=== PATIENT | female | born 1995 | race Caucasian/White ===

== ENCOUNTER → 2022-03-12 09:45 | Outpatient (CLI) | payer OTHER, SELFPAY ==
--- NOTE | 2022-03-12 09:47 | DI.MRI.S_ITS ---
PROCEDURE: MR SHOULDER LT W CON INDICATIONS: Pain in left shoulder TECHNIQUE: After the administration of 12 mL of dilute intra-articular Gadolinium contrast, oblique coronal T1 and T2 spin echo with fat saturation, oblique sagittal T1 spin echo with and without fat saturation, oblique sagittal T2 fast spin echo with fat saturation, axial T1 spin echo with fat saturation through the shoulder. COMPARISON: None. FINDINGS: Image quality: Excellent. Rotator cuff: The supraspinatus, infraspinatus, and subscapularis tendons appear intact throughout. No rotator cuff muscle atrophy on sagittal images. Bones and bursae: No bone marrow contusions or fractures. No acromioclavicular joint degeneration. The acromion demonstrates conventional anatomy, without an os acromiale. Capsule and soft tissues: The labrum and glenohumeral ligaments appear intact. The long head of the biceps tendon demonstrates normal location and morphology. The rotator interval appears normal, without fibrosis. The coracohumeral ligament is of normal thickness. No intra-articular bodies. There is a normal variant sublabral foramen involving the superior labrum. IMPRESSION: 1. Normal MR arthrogram of the left shoulder. 2. Normal variant sublabral foramen involving the superior labrum. Dictated by: Steven Thomson M.D. on 03/12/2022 at 11:16 Approved by: Steven Thomson M.D. on 03/12/2022 at 11:22
--- NOTE | 2022-03-12 09:49 | DI.RAD.S_ITS ---
PROCEDURE: FL SHOULDER INJECTION MR/CT LT INDICATIONS: Pain in left shoulder COMPARISON: None. TECHNIQUE: The indications, alternatives, benefits, risks, and complications of the procedure were explained to the patient. Written informed consent was obtained and placed in the chart. The shoulder was examined fluoroscopically and a site for needle placement chosen for entry into the glenohumeral joint from an anterior approach. The skin was prepped and draped in a sterile fashion, and 1% lidocaine infiltrated from skin down to joint capsule. A spinal needle was inserted into the glenohumeral joint, and a small amount of iodinated contrast media injected to confirm intra-articular placement of the needle tip. This was followed by approximately 12 mL dilute solution of a gadolinium containing MR contrast agent. The needle was removed and a dressing was applied. The patient was given postprocedural instructions and sent to the MR suite for MR imaging. FINDINGS: A single fluoroscopic spot image demonstrates intra-articular location of injected iodinated contrast. IMPRESSION: Successful fluoroscopically guided administration of dilute Gadolinium solution into the shoulder joint for MR arthrogram. Dictated by: Steven Thomson M.D. on 03/12/2022 at 11:05 Approved by: Steven Thomson M.D. on 03/12/2022 at 11:05
== END ==
PROVIDERS: Family Provider Student in an Organized Health Care Education/Training Program; PCP Student in an Organized Health Care Education/Training Program; Referring Provider Student in an Organized Health Care Education/Training Program; Visit Provider Student in an Organized Health Care Education/Training Program
DX: M25.512 Pain in left shoulder (principal)
CPT/HCPCS: 23350; 73222

== ENCOUNTER 2022-10-08 08:15 | Outpatient (RCR) | payer OTHER, SELFPAY ==
--- NOTE | 2022-04-18 16:09 | PT.OIE ---
Current Diagnoses Pain in left shoulder (04/18/22) Pain in left knee (04/18/22) Visit Care Team Role Provider Type Nayan Milner DO Attending Provider Non-Staff Family Provider Primary Care Provider Referring Provider Specialty: Family Practice Address: [address] [place] [address], [id number] Email: Physical Therapy Initial Evaluation PT-OP-A Visit Information Start: 04/14/22 09:51 Freq: Status: Active Protocol: Document 04/18/22 07:31 AMB (Rec: 04/18/22 07:51 AMB [id number]) Out-Patient Physical Therapy Visit Information Visit Information Visit Type Initial Evaluation Visit Start Time 07:30 Visit Stop Time 08:15 Total Visit Minutes 45 Visit Number 1 PT-OP-B Current Condition Start: 04/14/22 09:51 Freq: Status: Active Protocol: Document 04/18/22 07:31 AMB (Rec: 04/18/22 07:51 AMB [id number]) Current Condition History of Current Condition Onset Date Jan 2020 for the shoulder; mid 2021 knee Current Complaints L shoulder and L knee History of Current Condition Talia reports that she was doing biceps curls and suddenly had a difficult time in January 2020. L shoulder continues to tire out extremely fast. Shoulder gets irritated if trying to get shoulder back. Getting dressed doesn't hurt it but can't really lift weights like she wants. Overhead lifts hurt. As far as the knee, doesn't really trust knee when she's been sitting for a while, especially crossing the leg the knee locks up. 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 Does have previous history of back pain. Prior Treatments and Tests MRI negative for shoulder, Xray of knee negative Treatment Goals Patient/Caregiver Goals Return to gym workouts Prior Functional Status Baseline Function- ADL's Independent Baseline Function- Mobility Independent Personal Factors Other Personal Factors That May Effect Lumbar pain history, active Therapy/Recovery duty PT-OP-C Subjective Start: 04/14/22 09:51 Freq: Status: Active Protocol: Document 04/18/22 07:30 AMB (Rec: 04/18/22 15:33 AMB [id number]) Patient Questionnaires Quick Dash- Upper Extremity Quick Dash UE Score 31 OP-PT Pain Assessment Comments Pain Comments 6/10 pain at anterior shoulder and at L knee PT-OP-J Posture/Palpation/Skin Start: 04/14/22 09:51 Freq: Status: Active Protocol: Document 04/18/22 07:30 AMB (Rec: 04/18/22 13:01 AMB [id number]) Posture Evaluation Comments Posture Comments medial bordern of scapula wings L>R Palpation Assessment Location One Palpation Details Shoulder quite tender to palpation at the long head of the biceps origin. Otherwise no tenderness noted PT-OP-K Range of Motion Start: 04/14/22 09:51 Freq: Status: Active Protocol: Document 04/18/22 07:30 AMB (Rec: 04/18/22 13:01 AMB [id number]) Shoulder Goniometric Range of Motion Shoulder Left Active Testing Position Sitting Flexion 156 Abduction 180 Internal Rotation Behind Back (text) L3 Knee Goniometric Range of Motion Knee ROM Limitations Comments WFL bilaterally, PT-OP-L Special Tests Start: 04/14/22 09:51 Freq: Status: Active Protocol: Document 04/18/22 07:30 AMB (Rec: 04/18/22 13:01 AMB [id number]) Special Tests Knee Special Tests Ever Test Test Results - PT-OP-M Strength Start: 04/14/22 09:51 Freq: Status: Active Protocol: Document 04/18/22 07:30 AMB (Rec: 04/18/22 13:01 AMB [id number]) Shoulder Strength Shoulder Manual Muscle Testing Right Flexion 5 Normal Extension 5 Normal Abduction (C5) 5 Normal External Rotation 5 Normal Internal Rotation 5 Normal Left Flexion 4+ Good+ Extension 5 Normal Abduction (C5) 4 Good External Rotation 4 Good Internal Rotation 4+ Good+ Hip Strength Hip Manual Muscle Testing Right Flexion (L2) 4+ Good+ Extension (S1) 5 Normal Abduction 5 Normal Left Flexion (L2) 4 Good Extension (S1) 4 Good Abduction 4 Good Knee Strength Knee Manual Muscle Testing Right Flexion (S2) 5 Normal Extension (L3) 5 Normal Left Flexion (S2) 4+ Good+ Extension (L3) 4+ Good+ PT-OP-Q Treatments Start: 04/14/22 09:51 Freq: Status: Active Protocol: Document 04/18/22 07:30 AMB (Rec: 04/18/22 16:06 AMB [id number]) Therapeutic Exercises Standing Exercises pec stretch Side left Reps/Minutes 30x2 Comments doorway PT-OP-T Assessment and Plan Start: 04/14/22 09:51 Freq: Status: Active Protocol: Document 04/18/22 07:30 AMB (Rec: 04/18/22 16:06 AMB [id number]) Physical Therapy Assessment Rehab Potential Rehabilitation Potential Good Evaluation Complexity Number of Personal Factors/Comorbidities 1-2 Number of Body Systems Impaired 3 Clinical Presentation at Evaluation Stable Impairments Impairments Pain,Posture,ROM,Strength Goals Three Impairment Return to sport Short Term Goal (STG) Belinda will lift 20# overhead with 2/10 shoulder pain or less. STG Duration 6 weeks Two Impairment Shoulder pain Short Term Goal (STG) Talia will show at least 165 degrees of active shoulder flexion without pain. 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 LTG Duration 12 weeks One Impairment Knee pain Short Term Goal (STG) Talia will move from sit to stand without knee pain. STG Duration 6 weeks Assistant Store Manager Trainee Goal (LTG) Talia will squat 40# without knee pain. LTG Duration 12 weeks Assessment Summary Assessment Talia attends physical therapy with L knee and shoulder pain. L knee pain is likely meniscal in nature, although ever's test was negative. More concerning is her history of shoulder pain which certainly is similar in nature to a bicipital tendonopathy. She does have a MRI history for her shoulder that was essentially negative per her report. She wants to be very active in the gym and both injuries, in addition to an old back injury limit her goals for her fitness. She does have limited flexion and internal rotation at the left shoulder and mild weakness globally at the left shoulder, hip and knee. She will benefit from physical therapy for appropriate inflammation management, stretching and strengthening program to support her in her return to fitness goals. Physical Therapy Plan Frequency and Duration Frequency of Treatment 2x/Week Duration of treatment (weeks) 12 Plan of Care Start Date 04/18/22 Plan of Care End Date 07/11/22 Therapeutic Interventions Therapeutic Interventions Home Exercise Program,Manual Therapy,Neuromuscular Re- education,Self-Care/Home Management,Therapeutic Activities,Therapeutic Exercises Modalities Cold Pack/Ice Massage,Electric Stimulation,Hot Packs, Iontophoresis,Ultrasound Other Therapeutic Interventions iontophoresis with dexamethasone Next Visit Focus/Plan Next Note Type Treatment Note Next Visit Plan Review pec stretch, IYT, consider ice massage kinesiotape
--- NOTE | 2022-04-18 16:10 | PT.OPPOC ---
Physical, Occupational & Speech Therapy At [facility] Current Diagnoses Pain in left shoulder (04/18/22) Pain in left knee (04/18/22) Visit Care Team Role Provider Type Nayan Milner DO Attending Provider Non-Staff Family Provider Primary Care Provider Referring Provider Specialty: Family Practice Address: [address] [place] [address], [id number] Email: Plan Of Care PT-OP-T Assessment and Plan Start: 04/14/22 09:51 Freq: Status: Active Protocol: Document 04/18/22 07:30 AMB (Rec: 04/18/22 16:06 AMB [id number]) Physical Therapy Assessment Rehab Potential Rehabilitation Potential Good Evaluation Complexity Number of Personal Factors/Comorbidities 1-2 Number of Body Systems Impaired 3 Clinical Presentation at Evaluation Stable Impairments Impairments Pain,Posture,ROM,Strength Goals Three Impairment Return to sport Short Term Goal (STG) Belinda will lift 20# overhead with 2/10 shoulder pain or less. STG Duration 6 weeks Two Impairment Shoulder pain Short Term Goal (STG) Talia will show at least 165 degrees of active shoulder flexion without pain. 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 LTG Duration 12 weeks One Impairment Knee pain Short Term Goal (STG) Talia will move from sit to stand without knee pain. STG Duration 6 weeks Maintenance Technician 2Nd Shift Goal (LTG) Talia will squat 40# without knee pain. LTG Duration 12 weeks Assessment Summary Assessment Talia attends physical therapy with L knee and shoulder pain. L knee pain is likely meniscal in nature, although shireen's test was negative. More concerning is her history of shoulder pain which certainly is similar in nature to a bicipital tendonopathy. She does have a MRI history for her shoulder that was essentially negative per her report. She wants to be very active in the gym and both injuries, in addition to an old back injury limit her goals for her fitness. She does have limited flexion and internal rotation at the left shoulder and mild weakness globally at the left shoulder, hip and knee. She will benefit from physical therapy for appropriate inflammation management, stretching and strengthening program to support her in her return to fitness goals. Physical Therapy Plan Frequency and Duration Frequency of Treatment 2x/Week Duration of treatment (weeks) 12 Plan of Care Start Date 04/18/22 Plan of Care End Date 07/11/22 Therapeutic Interventions Therapeutic Interventions Home Exercise Program,Manual Therapy,Neuromuscular Re- education,Self-Care/Home Management,Therapeutic Activities,Therapeutic Exercises Modalities Cold Pack/Ice Massage,Electric Stimulation,Hot Packs, Iontophoresis,Ultrasound Other Therapeutic Interventions iontophoresis with dexamethasone Next Visit Focus/Plan Next Note Type Treatment Note Next Visit Plan Review RORO tony, consider ice massage kinesiotape Plan of Care Dates Plan of Care Start Date 04/18/22 Plan of Care End Date 07/11/22 Electronically Signed by: Tameka Ortiz, PT 04/18/22 2559 If you are in agreement with this Plan of Care, please return a signed and dated copy. I have reviewed this Plan of Care and certify that the skilled therapy services above are required to meet the patient?s needs. Physician Signature Date Printed Name and Credentials Clinical Instructor Signature Printed Name and Credentials
--- NOTE | 2022-04-23 12:03 | PT.OTN ---
Current Diagnoses Pain in left shoulder (04/23/22) Pain in left knee (04/23/22) Physical Therapy Treatment Note PT-OP-A Visit Information Start: 04/14/22 09:51 Freq: Status: Active Protocol: Document 04/23/22 08:18 AMB (Rec: 04/23/22 09:07 AMB [id number]) Out-Patient Physical Therapy Visit Information Visit Information Visit Type Treatment Note Visit Start Time 08:15 Visit Stop Time 09:00 Total Visit Minutes 45 Visit Number 2 PT-OP-B Current Condition Start: 04/14/22 09:51 Freq: Status: Active Protocol: Document 04/18/22 07:31 AMB (Rec: 04/18/22 07:51 AMB [id number]) Current Condition History of Current Condition Onset Date Jan 2020 for the shoulder; mid 2021 knee Current Complaints L shoulder and L knee History of Current Condition Talia reports that she was doing biceps curls and suddenly had a difficult time in January 2020. L shoulder continues to tire out extremely fast. Shoulder gets irritated if trying to get shoulder back. Getting dressed doesn't hurt it but can't really lift weights like she wants. Overhead lifts hurt. As far as the knee, doesn't really trust knee when she's been sitting for a while, especially crossing the leg the knee locks up. 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 Does have previous history of back pain. Prior Treatments and Tests MRI negative for shoulder, Xray of knee negative Treatment Goals Patient/Caregiver Goals Return to gym workouts Prior Functional Status Baseline Function- ADL's Independent Baseline Function- Mobility Independent Personal Factors Other Personal Factors That May Effect Lumbar pain history, active Therapy/Recovery duty PT-OP-C Subjective Start: 04/14/22 09:51 Freq: Status: Active Protocol: Document 04/23/22 08:15 AMB (Rec: 04/23/22 11:53 AMB [id number]) OP-PT Subjective Patient Comments Patient Comments Pt was able to go dancing over the weekend and the knee did ok. Did go to the gym and worked LE PT-OP-J Posture/Palpation/Skin Start: 04/14/22 09:51 Freq: Status: Active Protocol: Document 04/18/22 07:30 AMB (Rec: 04/18/22 13:01 AMB [id number]) Posture Evaluation Comments Posture Comments medial bordern of scapula wings L>R Palpation Assessment Location One Palpation Details Shoulder quite tender to palpation at the long head of the biceps origin. Otherwise no tenderness noted PT-OP-K Range of Motion Start: 04/14/22 09:51 Freq: Status: Active Protocol: Document 04/18/22 07:30 AMB (Rec: 04/18/22 13:01 AMB [id number]) Shoulder Goniometric Range of Motion Shoulder Left Active Testing Position Sitting Flexion 156 Abduction 180 Internal Rotation Behind Back (text) L3 Knee Goniometric Range of Motion Knee ROM Limitations Comments WFL bilaterally, PT-OP-L Special Tests Start: 04/14/22 09:51 Freq: Status: Active Protocol: Document 04/18/22 07:30 AMB (Rec: 04/18/22 13:01 AMB [id number]) Special Tests Knee Special Tests Ever Test Test Results - PT-OP-M Strength Start: 04/14/22 09:51 Freq: Status: Active Protocol: Document 04/18/22 07:30 AMB (Rec: 04/18/22 13:01 AMB [id number]) Shoulder Strength Shoulder Manual Muscle Testing Right Flexion 5 Normal Extension 5 Normal Abduction (C5) 5 Normal External Rotation 5 Normal Internal Rotation 5 Normal Left Flexion 4+ Good+ Extension 5 Normal Abduction (C5) 4 Good External Rotation 4 Good Internal Rotation 4+ Good+ Hip Strength Hip Manual Muscle Testing Right Flexion (L2) 4+ Good+ Extension (S1) 5 Normal Abduction 5 Normal Left Flexion (L2) 4 Good Extension (S1) 4 Good Abduction 4 Good Knee Strength Knee Manual Muscle Testing Right Flexion (S2) 5 Normal Extension (L3) 5 Normal Left Flexion (S2) 4+ Good+ Extension (L3) 4+ Good+ PT-OP-Q Treatments Start: 04/14/22 09:51 Freq: Status: Active Protocol: Document 04/23/22 08:15 AMB (Rec: 04/23/22 11:53 AMB [id number]) Therapeutic Exercises Prone Exercises shldr horizontal abd Reps/Minutes 2x10 Comments partial ROM only shldr ext Reps/Minutes 2x10 Comments good tolerance Sitting Exercises pulleys Sitting Exercise Name flexion Reps/Minutes 10 reps Comments then increased pain Standing Exercises rows Standing Exercise Name t band #2 Reps/Minutes 2x10 pec stretch Side left Reps/Minutes 30x2 Comments doorway Manual Therapy Treatment Joint Mobilizations 1 Joint GH AP Grade III Taping kinesiotape Body Location L shoulder Type of Tape Kinesio Tape Comments I strip from mid biceps to long head attachment, then another I strip from ant. GH joint to scapula to promote scapular retraction PT-OP-R Modalities Start: 04/14/22 09:51 Freq: Status: Active Protocol: Document 04/23/22 08:15 AMB (Rec: 04/23/22 12:01 AMB [id number]) Hot Pack/Cold Pack Treatment Ice Massage Location L shoulder Patient Position Supine Treatment Duration (minutes) 5 PT-OP-T Assessment and Plan Start: 04/14/22 09:51 Freq: Status: Active Protocol: Document 04/23/22 08:18 AMB (Rec: 04/23/22 09:07 AMB [id number]) Physical Therapy Assessment Goals Three Impairment Return to sport Short Term Goal (STG) Belinda will lift 20# overhead with 2/10 shoulder pain or less. STG Duration 6 weeks Two Impairment Shoulder pain Short Term Goal (STG) Talia will show at least 165 degrees of active shoulder flexion without pain. 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 LTG Duration 12 weeks One Impairment Knee pain Short Term Goal (STG) Talia will move from sit to stand without knee pain. STG Duration 6 weeks Improvement Coordinator Goal (LTG) Talia will squat 40# without knee pain. LTG Duration 12 weeks Assessment Summary Assessment Pt was not able to tolerate pulleys very well. Tolerate rows after taping well. Progressed shoulder HEP, will need to work on knee as well, but shoulder is much more irritable at this point. Encouraged pt in ice massage and working on inflammation reduction.
--- NOTE | 2022-04-25 13:01 | PT.OTN ---
Current Diagnoses Pain in left shoulder (04/25/22) Pain in left knee (04/25/22) Physical Therapy Treatment Note PT-OP-A Visit Information Start: 04/14/22 09:51 Freq: Status: Active Protocol: Document 04/25/22 07:25 AMB (Rec: 04/25/22 08:21 AMB [id number]) Out-Patient Physical Therapy Visit Information Visit Information Visit Type Treatment Note Visit Start Time 07:30 Visit Stop Time 08:15 Total Visit Minutes 45 Visit Number 3 PT-OP-B Current Condition Start: 04/14/22 09:51 Freq: Status: Active Protocol: Document 04/18/22 07:31 AMB (Rec: 04/18/22 07:51 AMB [id number]) Current Condition History of Current Condition Onset Date Jan 2020 for the shoulder; mid 2021 knee Current Complaints L shoulder and L knee History of Current Condition Talia reports that she was doing biceps curls and suddenly had a difficult time in January 2020. L shoulder continues to tire out extremely fast. Shoulder gets irritated if trying to get shoulder back. Getting dressed doesn't hurt it but can't really lift weights like she wants. Overhead lifts hurt. As far as the knee, doesn't really trust knee when she's been sitting for a while, especially crossing the leg the knee locks up. 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 Does have previous history of back pain. Prior Treatments and Tests MRI negative for shoulder, Xray of knee negative Treatment Goals Patient/Caregiver Goals Return to gym workouts Prior Functional Status Baseline Function- ADL's Independent Baseline Function- Mobility Independent Personal Factors Other Personal Factors That May Effect Lumbar pain history, active Therapy/Recovery duty PT-OP-C Subjective Start: 04/14/22 09:51 Freq: Status: Active Protocol: Document 04/25/22 09:34 AMB (Rec: 04/25/22 09:46 AMB [id number]) OP-PT Subjective Patient Comments Patient Comments Pt felt tape was helpful PT-OP-J Posture/Palpation/Skin Start: 04/14/22 09:51 Freq: Status: Active Protocol: Document 04/18/22 07:30 AMB (Rec: 04/18/22 13:01 AMB [id number]) Posture Evaluation Comments Posture Comments medial bordern of scapula wings L>R Palpation Assessment Location One Palpation Details Shoulder quite tender to palpation at the long head of the biceps origin. Otherwise no tenderness noted PT-OP-K Range of Motion Start: 04/14/22 09:51 Freq: Status: Active Protocol: Document 04/18/22 07:30 AMB (Rec: 04/18/22 13:01 AMB [id number]) Shoulder Goniometric Range of Motion Shoulder Left Active Testing Position Sitting Flexion 156 Abduction 180 Internal Rotation Behind Back (text) L3 Knee Goniometric Range of Motion Knee ROM Limitations Comments WFL bilaterally, PT-OP-L Special Tests Start: 04/14/22 09:51 Freq: Status: Active Protocol: Document 04/18/22 07:30 AMB (Rec: 04/18/22 13:01 AMB [id number]) Special Tests Knee Special Tests Ever Test Test Results - PT-OP-M Strength Start: 04/14/22 09:51 Freq: Status: Active Protocol: Document 04/18/22 07:30 AMB (Rec: 04/18/22 13:01 AMB [id number]) Shoulder Strength Shoulder Manual Muscle Testing Right Flexion 5 Normal Extension 5 Normal Abduction (C5) 5 Normal External Rotation 5 Normal Internal Rotation 5 Normal Left Flexion 4+ Good+ Extension 5 Normal Abduction (C5) 4 Good External Rotation 4 Good Internal Rotation 4+ Good+ Hip Strength Hip Manual Muscle Testing Right Flexion (L2) 4+ Good+ Extension (S1) 5 Normal Abduction 5 Normal Left Flexion (L2) 4 Good Extension (S1) 4 Good Abduction 4 Good Knee Strength Knee Manual Muscle Testing Right Flexion (S2) 5 Normal Extension (L3) 5 Normal Left Flexion (S2) 4+ Good+ Extension (L3) 4+ Good+ PT-OP-Q Treatments Start: 04/14/22 09:51 Freq: Status: Active Protocol: Document 04/25/22 09:34 AMB (Rec: 04/25/22 09:46 AMB [id number]) Cardio Equipment Upper Body Ergometer (UBE) Duration (Minutes) 4 Other fwd back Therapeutic Exercises Standing Exercises sidestepping band Resistance red Reps/Minutes 2x10 banded lunge Resistance red Reps/Minutes 2x10 shoulder ER Resistance #2 t band Reps/Minutes 2x10 shoulder IR Resistance #2 t band Reps/Minutes 2x10 rows Standing Exercise Name t band #2 Reps/Minutes 2x10 pec stretch Side left Reps/Minutes 30x2 Comments doorway Manual Therapy Treatment Taping kinesiotape Body Location L shoulder Type of Tape Kinesio Tape Comments I strip from mid biceps to long head attachment, then another I strip from ant. GH joint to scapula to promote scapular retraction PT-OP-R Modalities Start: 04/14/22 09:51 Freq: Status: Active Protocol: Document 04/23/22 08:15 AMB (Rec: 04/23/22 12:01 AMB [id number]) Hot Pack/Cold Pack Treatment Ice Massage Location L shoulder Patient Position Supine Treatment Duration (minutes) 5 PT-OP-T Assessment and Plan Start: 04/14/22 09:51 Freq: Status: Active Protocol: Document 04/25/22 09:34 AMB (Rec: 04/25/22 09:46 AMB [id number]) Physical Therapy Assessment Goals Three Impairment Return to sport Short Term Goal (STG) Belinda will lift 20# overhead with 2/10 shoulder pain or less. STG Duration 6 weeks Two Impairment Shoulder pain Short Term Goal (STG) Talia will show at least 165 degrees of active shoulder flexion without pain. 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 LTG Duration 12 weeks One Impairment Knee pain Short Term Goal (STG) Talia will move from sit to stand without knee pain. STG Duration 6 weeks Geospatial Image Analyst Goal (LTG) Talia will squat 40# without knee pain. LTG Duration 12 weeks Assessment Summary Assessment Challenged by band exercises. Taping is helping. Wanting to try gym workout this weekend. Encouraged in body weight exercises for now and can add in resistance if that is going well. Physical Therapy Plan Frequency and Duration Frequency of Treatment 2x/Week Duration of treatment (weeks) 12 Plan of Care Start Date 04/18/22 Plan of Care End Date 07/11/22 Therapeutic Interventions Therapeutic Interventions Home Exercise Program,Manual Therapy,Neuromuscular Re- education,Self-Care/Home Management,Therapeutic Activities,Therapeutic Exercises Modalities Cold Pack/Ice Massage,Electric Stimulation,Hot Packs, Iontophoresis,Ultrasound Other Therapeutic Interventions iontophoresis with dexamethasone Next Visit Focus/Plan Next Note Type Treatment Note Next Visit Plan Review pec stretch, IYT, band exercises
--- NOTE | 2022-04-30 08:47 | PT.OTN ---
Current Diagnoses Pain in left shoulder (04/30/22) Pain in left knee (04/30/22) Physical Therapy Treatment Note PT-OP-A Visit Information Start: 04/14/22 09:51 Freq: Status: Active Protocol: Document 04/30/22 08:23 AMB (Rec: 04/30/22 08:47 AMB [id number]) Out-Patient Physical Therapy Visit Information Visit Information Visit Type Treatment Note Visit Start Time 07:30 Visit Stop Time 08:15 Total Visit Minutes 45 Visit Number 4 PT-OP-B Current Condition Start: 04/14/22 09:51 Freq: Status: Active Protocol: Document 04/18/22 07:31 AMB (Rec: 04/18/22 07:51 AMB [id number]) Current Condition History of Current Condition Onset Date Jan 2020 for the shoulder; mid 2021 knee Current Complaints L shoulder and L knee History of Current Condition Talia reports that she was doing biceps curls and suddenly had a difficult time in January 2020. L shoulder continues to tire out extremely fast. Shoulder gets irritated if trying to get shoulder back. Getting dressed doesn't hurt it but can't really lift weights like she wants. Overhead lifts hurt. As far as the knee, doesn't really trust knee when she's been sitting for a while, especially crossing the leg the knee locks up. 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 Does have previous history of back pain. Prior Treatments and Tests MRI negative for shoulder, Xray of knee negative Treatment Goals Patient/Caregiver Goals Return to gym workouts Prior Functional Status Baseline Function- ADL's Independent Baseline Function- Mobility Independent Personal Factors Other Personal Factors That May Effect Lumbar pain history, active Therapy/Recovery duty PT-OP-C Subjective Start: 04/14/22 09:51 Freq: Status: Active Protocol: Document 04/30/22 08:23 AMB (Rec: 04/30/22 08:47 AMB [id number]) OP-PT Subjective Patient Comments Patient Comments Tape was a bit itchy PT-OP-J Posture/Palpation/Skin Start: 04/14/22 09:51 Freq: Status: Active Protocol: Document 04/18/22 07:30 AMB (Rec: 04/18/22 13:01 AMB [id number]) Posture Evaluation Comments Posture Comments medial bordern of scapula wings L>R Palpation Assessment Location One Palpation Details Shoulder quite tender to palpation at the long head of the biceps origin. Otherwise no tenderness noted PT-OP-K Range of Motion Start: 04/14/22 09:51 Freq: Status: Active Protocol: Document 04/18/22 07:30 AMB (Rec: 04/18/22 13:01 AMB [id number]) Shoulder Goniometric Range of Motion Shoulder Left Active Testing Position Sitting Flexion 156 Abduction 180 Internal Rotation Behind Back (text) L3 Knee Goniometric Range of Motion Knee ROM Limitations Comments WFL bilaterally, PT-OP-L Special Tests Start: 04/14/22 09:51 Freq: Status: Active Protocol: Document 04/18/22 07:30 AMB (Rec: 04/18/22 13:01 AMB [id number]) Special Tests Knee Special Tests Ever Test Test Results - PT-OP-M Strength Start: 04/14/22 09:51 Freq: Status: Active Protocol: Document 04/18/22 07:30 AMB (Rec: 04/18/22 13:01 AMB [id number]) Shoulder Strength Shoulder Manual Muscle Testing Right Flexion 5 Normal Extension 5 Normal Abduction (C5) 5 Normal External Rotation 5 Normal Internal Rotation 5 Normal Left Flexion 4+ Good+ Extension 5 Normal Abduction (C5) 4 Good External Rotation 4 Good Internal Rotation 4+ Good+ Hip Strength Hip Manual Muscle Testing Right Flexion (L2) 4+ Good+ Extension (S1) 5 Normal Abduction 5 Normal Left Flexion (L2) 4 Good Extension (S1) 4 Good Abduction 4 Good Knee Strength Knee Manual Muscle Testing Right Flexion (S2) 5 Normal Extension (L3) 5 Normal Left Flexion (S2) 4+ Good+ Extension (L3) 4+ Good+ PT-OP-Q Treatments Start: 04/14/22 09:51 Freq: Status: Active Protocol: Document 04/30/22 08:23 AMB (Rec: 04/30/22 08:47 AMB [id number]) Therapeutic Exercises Supine Exercises AAROM flexion Reps/Minutes 10 Comments with dowel Prone Exercises shldr horizontal abd Reps/Minutes 2x10 Comments partial ROM only shldr ext Reps/Minutes 2x10 Comments good tolerance Standing Exercises wall walk lift off Reps/Minutes 10 banded lunge Resistance no band Reps/Minutes 2x10 rows Standing Exercise Name t band #2 Reps/Minutes 2x10 Manual Therapy Treatment Soft Tissue Mobilization patellar tendon Comments friction massage PT-OP-R Modalities Start: 04/14/22 09:51 Freq: Status: Active Protocol: Document 04/23/22 08:15 AMB (Rec: 04/23/22 12:01 AMB [id number]) Hot Pack/Cold Pack Treatment Ice Massage Location L shoulder Patient Position Supine Treatment Duration (minutes) 5 PT-OP-T Assessment and Plan Start: 04/14/22 09:51 Freq: Status: Active Protocol: Document 04/30/22 08:23 AMB (Rec: 04/30/22 08:47 AMB [id number]) Physical Therapy Assessment Goals Three Impairment Return to sport Short Term Goal (STG) Belinda will lift 20# overhead with 2/10 shoulder pain or less. STG Duration 6 weeks Two Impairment Shoulder pain Short Term Goal (STG) Talia will show at least 165 degrees of active shoulder flexion without pain. 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 LTG Duration 12 weeks One Impairment Knee pain Short Term Goal (STG) Talia will move from sit to stand without knee pain. STG Duration 6 weeks Snf Goal (LTG) Talia will squat 40# without knee pain. LTG Duration 12 weeks Assessment Summary Assessment Tenderness is more at patellar tendon today, especially with lunges. Improved flexion shoulder ROM 164 degrees today . Encouraged to avoid open chain machines like knee extension while patellar tendon is sore. Physical Therapy Plan Frequency and Duration Frequency of Treatment 2x/Week Duration of treatment (weeks) 12 Plan of Care Start Date 04/18/22 Plan of Care End Date 07/11/22 Therapeutic Interventions Therapeutic Interventions Home Exercise Program,Manual Therapy,Neuromuscular Re- education,Self-Care/Home Management,Therapeutic Activities,Therapeutic Exercises Modalities Cold Pack/Ice Massage,Electric Stimulation,Hot Packs, Iontophoresis,Ultrasound Other Therapeutic Interventions iontophoresis with dexamethasone Next Visit Focus/Plan Next Note Type Treatment Note Next Visit Plan Review pec stretch, IYT, band exercises, patellar tendon massage
--- NOTE | 2022-05-02 08:19 | PT.OTN ---
Current Diagnoses Pain in left shoulder (05/02/22) Pain in left knee (05/02/22) Physical Therapy Treatment Note PT-OP-A Visit Information Start: 04/14/22 09:51 Freq: Status: Active Protocol: Document 05/02/22 07:30 AMB (Rec: 05/02/22 08:18 AMB [id number]) Out-Patient Physical Therapy Visit Information Visit Information Visit Type Treatment Note Visit Start Time 07:30 Visit Stop Time 08:15 Total Visit Minutes 45 Visit Number 5 PT-OP-B Current Condition Start: 04/14/22 09:51 Freq: Status: Active Protocol: Document 04/18/22 07:31 AMB (Rec: 04/18/22 07:51 AMB [id number]) Current Condition History of Current Condition Onset Date Jan 2020 for the shoulder; mid 2021 knee Current Complaints L shoulder and L knee History of Current Condition Talia reports that she was doing biceps curls and suddenly had a difficult time in January 2020. L shoulder continues to tire out extremely fast. Shoulder gets irritated if trying to get shoulder back. Getting dressed doesn't hurt it but can't really lift weights like she wants. Overhead lifts hurt. As far as the knee, doesn't really trust knee when she's been sitting for a while, especially crossing the leg the knee locks up. 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 Does have previous history of back pain. Prior Treatments and Tests MRI negative for shoulder, Xray of knee negative Treatment Goals Patient/Caregiver Goals Return to gym workouts Prior Functional Status Baseline Function- ADL's Independent Baseline Function- Mobility Independent Personal Factors Other Personal Factors That May Effect Lumbar pain history, active Therapy/Recovery duty PT-OP-C Subjective Start: 04/14/22 09:51 Freq: Status: Active Protocol: Document 05/02/22 07:30 AMB (Rec: 05/02/22 08:18 AMB [id number]) OP-PT Subjective Patient Comments Patient Comments Pt is going to do a leg workout later today. Feeling shoulder a bit today. PT-OP-J Posture/Palpation/Skin Start: 04/14/22 09:51 Freq: Status: Active Protocol: Document 04/18/22 07:30 AMB (Rec: 04/18/22 13:01 AMB [id number]) Posture Evaluation Comments Posture Comments medial bordern of scapula wings L>R Palpation Assessment Location One Palpation Details Shoulder quite tender to palpation at the long head of the biceps origin. Otherwise no tenderness noted PT-OP-K Range of Motion Start: 04/14/22 09:51 Freq: Status: Active Protocol: Document 04/18/22 07:30 AMB (Rec: 04/18/22 13:01 AMB [id number]) Shoulder Goniometric Range of Motion Shoulder Left Active Testing Position Sitting Flexion 156 Abduction 180 Internal Rotation Behind Back (text) L3 Knee Goniometric Range of Motion Knee ROM Limitations Comments WFL bilaterally, PT-OP-L Special Tests Start: 04/14/22 09:51 Freq: Status: Active Protocol: Document 04/18/22 07:30 AMB (Rec: 04/18/22 13:01 AMB [id number]) Special Tests Knee Special Tests Ever Test Test Results - PT-OP-M Strength Start: 04/14/22 09:51 Freq: Status: Active Protocol: Document 04/18/22 07:30 AMB (Rec: 04/18/22 13:01 AMB [id number]) Shoulder Strength Shoulder Manual Muscle Testing Right Flexion 5 Normal Extension 5 Normal Abduction (C5) 5 Normal External Rotation 5 Normal Internal Rotation 5 Normal Left Flexion 4+ Good+ Extension 5 Normal Abduction (C5) 4 Good External Rotation 4 Good Internal Rotation 4+ Good+ Hip Strength Hip Manual Muscle Testing Right Flexion (L2) 4+ Good+ Extension (S1) 5 Normal Abduction 5 Normal Left Flexion (L2) 4 Good Extension (S1) 4 Good Abduction 4 Good Knee Strength Knee Manual Muscle Testing Right Flexion (S2) 5 Normal Extension (L3) 5 Normal Left Flexion (S2) 4+ Good+ Extension (L3) 4+ Good+ PT-OP-Q Treatments Start: 04/14/22 09:51 Freq: Status: Active Protocol: Document 05/02/22 07:30 AMB (Rec: 05/02/22 08:18 AMB [id number]) Therapeutic Exercises Supine Exercises foam roller Reps/Minutes 3 min Comments arms in abduction stretch Prone Exercises shldr flex Reps/Minutes 10 Comments no pain shldr ext Reps/Minutes 2x10 Comments good tolerance Standing Exercises wall walk lift off Reps/Minutes 10 Comments stretch Manual Therapy Treatment Taping kinesiotape Body Location L patella Type of Tape Kinesio Tape Comments I strip over patellar tendon PT-OP-R Modalities Start: 04/14/22 09:51 Freq: Status: Active Protocol: Document 04/23/22 08:15 AMB (Rec: 04/23/22 12:01 AMB [id number]) Hot Pack/Cold Pack Treatment Ice Massage Location L shoulder Patient Position Supine Treatment Duration (minutes) 5 PT-OP-T Assessment and Plan Start: 04/14/22 09:51 Freq: Status: Active Protocol: Document 05/02/22 07:30 AMB (Rec: 05/02/22 08:18 AMB [id number]) Physical Therapy Assessment Goals Three Impairment Return to sport Short Term Goal (STG) Belinda will lift 20# overhead with 2/10 shoulder pain or less. STG Duration 6 weeks Two Impairment Shoulder pain Short Term Goal (STG) Talia will show at least 165 degrees of active shoulder flexion without pain. 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 LTG Duration 12 weeks One Impairment Knee pain Short Term Goal (STG) Talia will move from sit to stand without knee pain. STG Duration 6 weeks Long-Term Goal (LTG) Talia will squat 40# without knee pain. LTG Duration 12 weeks Assessment Summary Assessment Talia tolerated more resistance to biceps today, did start with pec stretching which was helpful. Physical Therapy Plan Frequency and Duration Frequency of Treatment 2x/Week Duration of treatment (weeks) 12 Plan of Care Start Date 04/18/22 Plan of Care End Date 07/11/22 Therapeutic Interventions Therapeutic Interventions Home Exercise Program,Manual Therapy,Neuromuscular Re- education,Self-Care/Home Management,Therapeutic Activities,Therapeutic Exercises Modalities Cold Pack/Ice Massage,Electric Stimulation,Hot Packs, Iontophoresis,Ultrasound Other Therapeutic Interventions iontophoresis with dexamethasone Next Visit Focus/Plan Next Note Type Treatment Note Next Visit Plan Review pec stretch, IYT, band exercises, patellar tendon massage
--- NOTE | 2022-05-09 11:23 | PT.OTN ---
Current Diagnoses Pain in left shoulder (05/09/22) Pain in left knee (05/09/22) Physical Therapy Treatment Note PT-OP-A Visit Information Start: 04/14/22 09:51 Freq: Status: Active Protocol: Document 05/09/22 09:02 AMB (Rec: 05/09/22 10:15 AMB [id number]) Out-Patient Physical Therapy Visit Information Visit Information Visit Type Treatment Note Visit Start Time 09:00 Visit Stop Time 09:45 Total Visit Minutes 45 Visit Number 6 PT-OP-B Current Condition Start: 04/14/22 09:51 Freq: Status: Active Protocol: Document 04/18/22 07:31 AMB (Rec: 04/18/22 07:51 AMB [id number]) Current Condition History of Current Condition Onset Date Jan 2020 for the shoulder; mid 2021 knee Current Complaints L shoulder and L knee History of Current Condition Talia reports that she was doing biceps curls and suddenly had a difficult time in January 2020. L shoulder continues to tire out extremely fast. Shoulder gets irritated if trying to get shoulder back. Getting dressed doesn't hurt it but can't really lift weights like she wants. Overhead lifts hurt. As far as the knee, doesn't really trust knee when she's been sitting for a while, especially crossing the leg the knee locks up. 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 Does have previous history of back pain. Prior Treatments and Tests MRI negative for shoulder, Xray of knee negative Treatment Goals Patient/Caregiver Goals Return to gym workouts Prior Functional Status Baseline Function- ADL's Independent Baseline Function- Mobility Independent Personal Factors Other Personal Factors That May Effect Lumbar pain history, active Therapy/Recovery duty PT-OP-C Subjective Start: 04/14/22 09:51 Freq: Status: Active Protocol: Document 05/09/22 09:02 AMB (Rec: 05/09/22 10:15 AMB [id number]) OP-PT Subjective Patient Comments Patient Comments Pt did well with leg workout. PT-OP-J Posture/Palpation/Skin Start: 04/14/22 09:51 Freq: Status: Active Protocol: Document 04/18/22 07:30 AMB (Rec: 04/18/22 13:01 AMB [id number]) Posture Evaluation Comments Posture Comments medial bordern of scapula wings L>R Palpation Assessment Location One Palpation Details Shoulder quite tender to palpation at the long head of the biceps origin. Otherwise no tenderness noted PT-OP-K Range of Motion Start: 04/14/22 09:51 Freq: Status: Active Protocol: Document 04/18/22 07:30 AMB (Rec: 04/18/22 13:01 AMB [id number]) Shoulder Goniometric Range of Motion Shoulder Left Active Testing Position Sitting Flexion 156 Abduction 180 Internal Rotation Behind Back (text) L3 Knee Goniometric Range of Motion Knee ROM Limitations Comments WFL bilaterally, PT-OP-L Special Tests Start: 04/14/22 09:51 Freq: Status: Active Protocol: Document 04/18/22 07:30 AMB (Rec: 04/18/22 13:01 AMB [id number]) Special Tests Knee Special Tests Ever Test Test Results - PT-OP-M Strength Start: 04/14/22 09:51 Freq: Status: Active Protocol: Document 04/18/22 07:30 AMB (Rec: 04/18/22 13:01 AMB [id number]) Shoulder Strength Shoulder Manual Muscle Testing Right Flexion 5 Normal Extension 5 Normal Abduction (C5) 5 Normal External Rotation 5 Normal Internal Rotation 5 Normal Left Flexion 4+ Good+ Extension 5 Normal Abduction (C5) 4 Good External Rotation 4 Good Internal Rotation 4+ Good+ Hip Strength Hip Manual Muscle Testing Right Flexion (L2) 4+ Good+ Extension (S1) 5 Normal Abduction 5 Normal Left Flexion (L2) 4 Good Extension (S1) 4 Good Abduction 4 Good Knee Strength Knee Manual Muscle Testing Right Flexion (S2) 5 Normal Extension (L3) 5 Normal Left Flexion (S2) 4+ Good+ Extension (L3) 4+ Good+ PT-OP-Q Treatments Start: 04/14/22 09:51 Freq: Status: Active Protocol: Document 05/09/22 09:02 AMB (Rec: 05/09/22 10:15 AMB [id number]) Therapeutic Exercises Supine Exercises IT band stretch Supine Exercise Name demonstrated, can try/provide handout at next visit if tolerated foam roller Reps/Minutes 3 min Comments arms in abduction stretch Standing Exercises wall pushups Standing Exercise Name 10 Comments increased sx rows Standing Exercise Name 10# Reps/Minutes 15 Comments leaning over plinth-- increased sx pec stretch Side left Reps/Minutes 1 minx 3 Comments doorway Manual Therapy Treatment Soft Tissue Mobilization pec minor tendon Mobilization Type Cross-Friction Intensity/Depth Moderate Comments added in gentle long head biceps patellar tendon Body Location left Comments friction massage PT-OP-R Modalities Start: 04/14/22 09:51 Freq: Status: Active Protocol: Document 04/23/22 08:15 AMB (Rec: 04/23/22 12:01 AMB [id number]) Hot Pack/Cold Pack Treatment Ice Massage Location L shoulder Patient Position Supine Treatment Duration (minutes) 5 PT-OP-T Assessment and Plan Start: 04/14/22 09:51 Freq: Status: Active Protocol: Document 05/09/22 09:02 AMB (Rec: 05/09/22 10:15 AMB [id number]) Physical Therapy Assessment Goals Three Impairment Return to sport Short Term Goal (STG) Belinda will lift 20# overhead with 2/10 shoulder pain or less. STG Duration 6 weeks Two Impairment Shoulder pain Short Term Goal (STG) Talia will show at least 165 degrees of active shoulder flexion without pain. 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 LTG Duration 12 weeks One Impairment Knee pain Short Term Goal (STG) Talia will move from sit to stand without knee pain. STG Duration 6 weeks Assisted Goal (LTG) Talia will squat 40# without knee pain. LTG Duration 12 weeks Assessment Summary Assessment Talia continues to needs to strengthen posterior shoulder and stretch anterior. Discussed knee at greater length today. Encouraged in IT band stretching/rolling as more pain at lateral patellar tendon. Physical Therapy Plan Frequency and Duration Frequency of Treatment 2x/Week Duration of treatment (weeks) 12 Plan of Care Start Date 04/18/22 Plan of Care End Date 07/11/22 Therapeutic Interventions Therapeutic Interventions Home Exercise Program,Manual Therapy,Neuromuscular Re- education,Self-Care/Home Management,Therapeutic Activities,Therapeutic Exercises Modalities Cold Pack/Ice Massage,Electric Stimulation,Hot Packs, Iontophoresis,Ultrasound Other Therapeutic Interventions iontophoresis with dexamethasone Next Visit Focus/Plan Next Note Type Treatment Note Next Visit Plan Review pec stretch, IYT, band exercises, patellar and pec minor tendon massage. Try IT band stretch.
--- NOTE | 2022-05-16 08:44 | PT.OTN ---
Current Diagnoses Pain in left shoulder (05/16/22) Pain in left knee (05/16/22) Physical Therapy Treatment Note PT-OP-A Visit Information Start: 04/14/22 09:51 Freq: Status: Active Protocol: Document 05/16/22 07:37 AMB (Rec: 05/16/22 08:24 AMB [id number]) Out-Patient Physical Therapy Visit Information Visit Information Visit Type Treatment Note Visit Start Time 07:30 Visit Stop Time 08:15 Total Visit Minutes 45 Visit Number 7 PT-OP-B Current Condition Start: 04/14/22 09:51 Freq: Status: Active Protocol: Document 04/18/22 07:31 AMB (Rec: 04/18/22 07:51 AMB [id number]) Current Condition History of Current Condition Onset Date Jan 2020 for the shoulder; mid 2021 knee Current Complaints L shoulder and L knee History of Current Condition Talia reports that she was doing biceps curls and suddenly had a difficult time in January 2020. L shoulder continues to tire out extremely fast. Shoulder gets irritated if trying to get shoulder back. Getting dressed doesn't hurt it but can't really lift weights like she wants. Overhead lifts hurt. As far as the knee, doesn't really trust knee when she's been sitting for a while, especially crossing the leg the knee locks up. 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 Does have previous history of back pain. Prior Treatments and Tests MRI negative for shoulder, Xray of knee negative Treatment Goals Patient/Caregiver Goals Return to gym workouts Prior Functional Status Baseline Function- ADL's Independent Baseline Function- Mobility Independent Personal Factors Other Personal Factors That May Effect Lumbar pain history, active Therapy/Recovery duty PT-OP-C Subjective Start: 04/14/22 09:51 Freq: Status: Active Protocol: Document 05/16/22 07:37 AMB (Rec: 05/16/22 08:24 AMB [id number]) OP-PT Subjective Patient Comments Patient Comments Pt doing well with her knee. PT-OP-J Posture/Palpation/Skin Start: 04/14/22 09:51 Freq: Status: Active Protocol: Document 04/18/22 07:30 AMB (Rec: 04/18/22 13:01 AMB [id number]) Posture Evaluation Comments Posture Comments medial bordern of scapula wings L>R Palpation Assessment Location One Palpation Details Shoulder quite tender to palpation at the long head of the biceps origin. Otherwise no tenderness noted PT-OP-K Range of Motion Start: 04/14/22 09:51 Freq: Status: Active Protocol: Document 04/18/22 07:30 AMB (Rec: 04/18/22 13:01 AMB [id number]) Shoulder Goniometric Range of Motion Shoulder Left Active Testing Position Sitting Flexion 156 Abduction 180 Internal Rotation Behind Back (text) L3 Knee Goniometric Range of Motion Knee ROM Limitations Comments WFL bilaterally, PT-OP-L Special Tests Start: 04/14/22 09:51 Freq: Status: Active Protocol: Document 04/18/22 07:30 AMB (Rec: 04/18/22 13:01 AMB [id number]) Special Tests Knee Special Tests Ever Test Test Results - PT-OP-M Strength Start: 04/14/22 09:51 Freq: Status: Active Protocol: Document 04/18/22 07:30 AMB (Rec: 04/18/22 13:01 AMB [id number]) Shoulder Strength Shoulder Manual Muscle Testing Right Flexion 5 Normal Extension 5 Normal Abduction (C5) 5 Normal External Rotation 5 Normal Internal Rotation 5 Normal Left Flexion 4+ Good+ Extension 5 Normal Abduction (C5) 4 Good External Rotation 4 Good Internal Rotation 4+ Good+ Hip Strength Hip Manual Muscle Testing Right Flexion (L2) 4+ Good+ Extension (S1) 5 Normal Abduction 5 Normal Left Flexion (L2) 4 Good Extension (S1) 4 Good Abduction 4 Good Knee Strength Knee Manual Muscle Testing Right Flexion (S2) 5 Normal Extension (L3) 5 Normal Left Flexion (S2) 4+ Good+ Extension (L3) 4+ Good+ PT-OP-Q Treatments Start: 04/14/22 09:51 Freq: Status: Active Protocol: Document 05/16/22 07:37 AMB (Rec: 05/16/22 08:24 AMB [id number]) Therapeutic Exercises Standing Exercises wall pushups Standing Exercise Name 10 Comments no increase in sx today rows Standing Exercise Name 10# Reps/Minutes 15 Comments leaning over plinth-- increased sx pec stretch Side left Reps/Minutes 1 minx 3 Comments doorway Manual Therapy Treatment Soft Tissue Mobilization pec minor tendon Mobilization Type Cross-Friction Intensity/Depth Moderate Comments added in gentle long head biceps, lats, subscap, UT Joint Mobilizations 1 Joint GH AP Grade III PT-OP-R Modalities Start: 04/14/22 09:51 Freq: Status: Active Protocol: Document 04/23/22 08:15 AMB (Rec: 04/23/22 12:01 AMB [id number]) Hot Pack/Cold Pack Treatment Ice Massage Location L shoulder Patient Position Supine Treatment Duration (minutes) 5 PT-OP-T Assessment and Plan Start: 04/14/22 09:51 Freq: Status: Active Protocol: Document 05/16/22 07:37 AMB (Rec: 05/16/22 08:24 AMB [id number]) Physical Therapy Assessment Goals Three Impairment Return to sport Short Term Goal (STG) Belinda will lift 20# overhead with 2/10 shoulder pain or less. STG Duration 6 weeks Two Impairment Shoulder pain Short Term Goal (STG) Talia will show at least 165 degrees of active shoulder flexion without pain. 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 LTG Duration 12 weeks One Impairment Knee pain Short Term Goal (STG) Talia will move from sit to stand without knee pain. STG Duration 6 weeks Mcfp Goal (LTG) Talia will squat 40# without knee pain. LTG Duration 12 weeks Assessment Summary Assessment Talia had improved ROM after manual, continues to be very tender in biceps, pecs and lats. Encouraged pt to continue with I, Y, T and pec stretching and we can consider light resistance if still doing well next visit. Pt very motivated to return to gym workouts. Physical Therapy Plan Frequency and Duration Frequency of Treatment 2x/Week Duration of treatment (weeks) 12 Plan of Care Start Date 04/18/22 Plan of Care End Date 07/11/22 Therapeutic Interventions Therapeutic Interventions Home Exercise Program,Manual Therapy,Neuromuscular Re- education,Self-Care/Home Management,Therapeutic Activities,Therapeutic Exercises Modalities Cold Pack/Ice Massage,Electric Stimulation,Hot Packs, Iontophoresis,Ultrasound Other Therapeutic Interventions iontophoresis with dexamethasone Next Visit Focus/Plan Next Note Type Treatment Note Next Visit Plan Consider LIGHT shoulder resistance at next visit if continuing to feel better. Can progress manual if needed. Continue to encourage pec stretch, I, Y, T. Hip strengthening.
--- NOTE | 2022-05-18 10:00 | PT.OTN ---
Current Diagnoses Pain in left shoulder (05/18/22) Pain in left knee (05/18/22) Physical Therapy Treatment Note PT-OP-A Visit Information Start: 04/14/22 09:51 Freq: Status: Active Protocol: Document 05/18/22 09:13 NBM (Rec: 05/18/22 10:52 NBM [id number]) Out-Patient Physical Therapy Visit Information Visit Information Visit Type Treatment Note Visit Start Time 09:15 Visit Stop Time 09:55 Total Visit Minutes 40 Visit Number 8 Number of RESEARCH RECRUITER Visits 1 PT-OP-B Current Condition Start: 04/14/22 09:51 Freq: Status: Active Protocol: Document 04/18/22 07:31 AMB (Rec: 04/18/22 07:51 AMB [id number]) Current Condition History of Current Condition Onset Date Jan 2020 for the shoulder; mid 2021 knee Current Complaints L shoulder and L knee History of Current Condition Talia reports that she was doing biceps curls and suddenly had a difficult time in January 2020. L shoulder continues to tire out extremely fast. Shoulder gets irritated if trying to get shoulder back. Getting dressed doesn't hurt it but can't really lift weights like she wants. Overhead lifts hurt. As far as the knee, doesn't really trust knee when she's been sitting for a while, especially crossing the leg the knee locks up. 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 Does have previous history of back pain. Prior Treatments and Tests MRI negative for shoulder, Xray of knee negative Treatment Goals Patient/Caregiver Goals Return to gym workouts Prior Functional Status Baseline Function- ADL's Independent Baseline Function- Mobility Independent Personal Factors Other Personal Factors That May Effect Lumbar pain history, active Therapy/Recovery duty PT-OP-C Subjective Start: 04/14/22 09:51 Freq: Status: Active Protocol: Document 05/18/22 09:13 NBM (Rec: 05/18/22 10:52 NBM [id number]) OP-PT Subjective Patient Comments Patient Comments Pt states left shoulder is more problematic than the L knee. Knee was a bit sore yesterday but seems to be getting better as she gets stronger. Pt hasn't lifted with dumbbells since 6 mo ago due to shoulder pain (except to lift plate), but no sharp pains recently. PT-OP-J Posture/Palpation/Skin Start: 04/14/22 09:51 Freq: Status: Active Protocol: Document 04/18/22 07:30 AMB (Rec: 04/18/22 13:01 AMB [id number]) Posture Evaluation Comments Posture Comments medial bordern of scapula wings L>R Palpation Assessment Location One Palpation Details Shoulder quite tender to palpation at the long head of the biceps origin. Otherwise no tenderness noted PT-OP-K Range of Motion Start: 04/14/22 09:51 Freq: Status: Active Protocol: Document 04/18/22 07:30 AMB (Rec: 04/18/22 13:01 AMB [id number]) Shoulder Goniometric Range of Motion Shoulder Left Active Testing Position Sitting Flexion 156 Abduction 180 Internal Rotation Behind Back (text) L3 Knee Goniometric Range of Motion Knee ROM Limitations Comments WFL bilaterally, PT-OP-L Special Tests Start: 04/14/22 09:51 Freq: Status: Active Protocol: Document 04/18/22 07:30 AMB (Rec: 04/18/22 13:01 AMB [id number]) Special Tests Knee Special Tests Ever Test Test Results - PT-OP-M Strength Start: 04/14/22 09:51 Freq: Status: Active Protocol: Document 04/18/22 07:30 AMB (Rec: 04/18/22 13:01 AMB [id number]) Shoulder Strength Shoulder Manual Muscle Testing Right Flexion 5 Normal Extension 5 Normal Abduction (C5) 5 Normal External Rotation 5 Normal Internal Rotation 5 Normal Left Flexion 4+ Good+ Extension 5 Normal Abduction (C5) 4 Good External Rotation 4 Good Internal Rotation 4+ Good+ Hip Strength Hip Manual Muscle Testing Right Flexion (L2) 4+ Good+ Extension (S1) 5 Normal Abduction 5 Normal Left Flexion (L2) 4 Good Extension (S1) 4 Good Abduction 4 Good Knee Strength Knee Manual Muscle Testing Right Flexion (S2) 5 Normal Extension (L3) 5 Normal Left Flexion (S2) 4+ Good+ Extension (L3) 4+ Good+ PT-OP-Q Treatments Start: 04/14/22 09:51 Freq: Status: Active Protocol: Document 05/18/22 09:13 NBM (Rec: 05/18/22 10:52 NBM [id number]) Therapeutic Exercises Supine Exercises IT band stretch Supine Exercise Name added to HEP Side bilateral Equipment Used /c belt Reps/Minutes 2 x 30s ea Comments cues set up and for longer hold time foam roller Reps/Minutes 3 min Comments arms in abduction stretch Prone Exercises shldr flex Reps/Minutes 10, x10 1# monica Comments no pain but started to feel popping shldr horizontal abd Reps/Minutes x10, x10 1# monica Comments partial ROM only shldr ext Reps/Minutes x10, x10 1# monica Comments good tolerance Standing Exercises rows Standing Exercise Name 10# Reps/Minutes 15 Comments leaning over plinth-- increased sx Manual Therapy Treatment Soft Tissue Mobilization pec minor tendon Mobilization Type Cross-Friction Intensity/Depth Moderate Comments added in gentle long head biceps, lats, subscap, UT Added manual L LS stretch x30 sec. Joint Mobilizations 1 Joint GH AP Grade II Comments inferior - good feedback response Self-Care/Home Management Treatment Education Patient Education Home Exercise Program Other Education Added to HEP: supine ITB stretch w/ belt - HO given. Pt educated to hold ex at least 30s and not to count fast. PT-OP-R Modalities Start: 04/14/22 09:51 Freq: Status: Active Protocol: Document 04/23/22 08:15 AMB (Rec: 04/23/22 12:01 AMB [id number]) Hot Pack/Cold Pack Treatment Ice Massage Location L shoulder Patient Position Supine Treatment Duration (minutes) 5 PT-OP-T Assessment and Plan Start: 04/14/22 09:51 Freq: Status: Active Protocol: Document 05/18/22 09:13 NBM (Rec: 05/18/22 10:52 NBM [id number]) Physical Therapy Assessment Impairments Impairments Pain,Posture,ROM,Strength Goals Three Impairment Return to sport Short Term Goal (STG) Belinda will lift 20# overhead with 2/10 shoulder pain or less. STG Duration 6 weeks Two Impairment Shoulder pain Short Term Goal (STG) Talia will show at least 165 degrees of active shoulder flexion without pain. 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 LTG Duration 12 weeks One Impairment Knee pain Short Term Goal (STG) Talia will move from sit to stand without knee pain. STG Duration 6 weeks Oil Refiner Goal (LTG) Talia will squat 40# without knee pain. LTG Duration 12 weeks Assessment Summary Assessment Pt presents today with tenderness to palpation in L shoulder. Treatment focus today on improving scapular stability and pain-free range of motion and manual therapy. Pt requires cues with prone ex 's for scapular setting and chin tuck and is increasingly challenged w/ increasing shoulder flexion. Added to HEP : supine ITB stretch w/ belt - HO given. Pt educated to hold ex at least 30s and not to count fast. Soft tissue mobilization focus to long head of L biceps, Upper trapezius and Levator scapulae with decrease in palpable tension and positive feedback response from pt. Physical Therapy Plan Frequency and Duration Frequency of Treatment 2x/Week Duration of treatment (weeks) 12 Plan of Care Start Date 04/18/22 Plan of Care End Date 07/11/22 Therapeutic Interventions Therapeutic Interventions Home Exercise Program,Manual Therapy,Neuromuscular Re- education,Self-Care/Home Management,Therapeutic Activities,Therapeutic Exercises Modalities Cold Pack/Ice Massage,Electric Stimulation,Hot Packs, Iontophoresis,Ultrasound Other Therapeutic Interventions iontophoresis with dexamethasone Next Visit Focus/Plan Next Note Type Treatment Note Next Visit Plan Consider LIGHT shoulder resistance at next visit if continuing to feel better. Can progress manual if needed. Continue to encourage pec stretch, I, Y, T. Hip strengthening.
--- NOTE | 2022-05-21 12:14 | PT.OTN ---
Current Diagnoses Pain in left shoulder (05/21/22) Pain in left knee (05/21/22) Physical Therapy Treatment Note PT-OP-A Visit Information Start: 04/14/22 09:51 Freq: Status: Active Protocol: Document 05/21/22 11:22 NBM (Rec: 05/21/22 12:14 NB [id number]) Out-Patient Physical Therapy Visit Information Visit Information Visit Type Treatment Note Visit Start Time 11:22 Visit Stop Time 12:07 Total Visit Minutes 45 Visit Number 9 Number of HANDICAPPER HARNESS RACING Visits 2 PT-OP-B Current Condition Start: 04/14/22 09:51 Freq: Status: Active Protocol: Document 04/18/22 07:31 AMB (Rec: 04/18/22 07:51 AMB [id number]) Current Condition History of Current Condition Onset Date Jan 2020 for the shoulder; mid 2021 knee Current Complaints L shoulder and L knee History of Current Condition Talia reports that she was doing biceps curls and suddenly had a difficult time in January 2020. L shoulder continues to tire out extremely fast. Shoulder gets irritated if trying to get shoulder back. Getting dressed doesn't hurt it but can't really lift weights like she wants. Overhead lifts hurt. As far as the knee, doesn't really trust knee when she's been sitting for a while, especially crossing the leg the knee locks up. 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 Does have previous history of back pain. Prior Treatments and Tests MRI negative for shoulder, Xray of knee negative Treatment Goals Patient/Caregiver Goals Return to gym workouts Prior Functional Status Baseline Function- ADL's Independent Baseline Function- Mobility Independent Personal Factors Other Personal Factors That May Effect Lumbar pain history, active Therapy/Recovery duty PT-OP-C Subjective Start: 04/14/22 09:51 Freq: Status: Active Protocol: Document 05/21/22 11:22 NBM (Rec: 05/21/22 12:14 NB [id number]) OP-PT Subjective Patient Comments Patient Comments Pt states she was sore right after last visit for about a day, so she didn't do as much over the weekend. She manually popped her L shoulder and it feels much better now. The knee is good. She is noticing when she sits or drives with rounded shoulders and then corrects. PT-OP-J Posture/Palpation/Skin Start: 04/14/22 09:51 Freq: Status: Active Protocol: Document 04/18/22 07:30 AMB (Rec: 04/18/22 13:01 AMB [id number]) Posture Evaluation Comments Posture Comments medial bordern of scapula wings L>R Palpation Assessment Location One Palpation Details Shoulder quite tender to palpation at the long head of the biceps origin. Otherwise no tenderness noted PT-OP-K Range of Motion Start: 04/14/22 09:51 Freq: Status: Active Protocol: Document 04/18/22 07:30 AMB (Rec: 04/18/22 13:01 AMB [id number]) Shoulder Goniometric Range of Motion Shoulder Left Active Testing Position Sitting Flexion 156 Abduction 180 Internal Rotation Behind Back (text) L3 Knee Goniometric Range of Motion Knee ROM Limitations Comments WFL bilaterally, PT-OP-L Special Tests Start: 04/14/22 09:51 Freq: Status: Active Protocol: Document 04/18/22 07:30 AMB (Rec: 04/18/22 13:01 AMB [id number]) Special Tests Knee Special Tests Ever Test Test Results - PT-OP-M Strength Start: 04/14/22 09:51 Freq: Status: Active Protocol: Document 04/18/22 07:30 AMB (Rec: 04/18/22 13:01 AMB [id number]) Shoulder Strength Shoulder Manual Muscle Testing Right Flexion 5 Normal Extension 5 Normal Abduction (C5) 5 Normal External Rotation 5 Normal Internal Rotation 5 Normal Left Flexion 4+ Good+ Extension 5 Normal Abduction (C5) 4 Good External Rotation 4 Good Internal Rotation 4+ Good+ Hip Strength Hip Manual Muscle Testing Right Flexion (L2) 4+ Good+ Extension (S1) 5 Normal Abduction 5 Normal Left Flexion (L2) 4 Good Extension (S1) 4 Good Abduction 4 Good Knee Strength Knee Manual Muscle Testing Right Flexion (S2) 5 Normal Extension (L3) 5 Normal Left Flexion (S2) 4+ Good+ Extension (L3) 4+ Good+ PT-OP-Q Treatments Start: 04/14/22 09:51 Freq: Status: Active Protocol: Document 05/21/22 11:22 NBM (Rec: 05/21/22 12:14 NBM [id number]) Therapeutic Exercises Supine Exercises foam roller Reps/Minutes 3 min Comments arms in abduction stretch Standing Exercises shoulder ER Resistance #2 t band Equipment Used towel roll Reps/Minutes x10 Comments dc'd d/t pt complaint of L [place] pain shoulder IR Resistance #2 t band Reps/Minutes 2x10 Comments UT overactivation w/ fatigue, pt self-corrects rows Standing Exercise Name 1.resisted #2Tb 2. 10# leaning over plinth Reps/Minutes x10 pec stretch Standing Exercise Name varying angles Side left Reps/Minutes 1 minx 3 Comments doorway, monica>Left only Manual Therapy Treatment Soft Tissue Mobilization pec minor tendon Mobilization Type Cross-Friction Intensity/Depth Moderate Comments added in gentle long head biceps, UT Joint Mobilizations 1 Joint GH AP Grade II Comments inferior - good feedback response PT-OP-R Modalities Start: 04/14/22 09:51 Freq: Status: Active Protocol: Document 05/21/22 11:22 [facility] (Rec: 05/21/22 12:14 [facility] [id number]) Hot Pack/Cold Pack Treatment Ice Massage Location L shoulder Patient Position Supine Treatment Duration (minutes) 5 Patient Tolerance Good PT-OP-T Assessment and Plan Start: 04/14/22 09:51 Freq: Status: Active Protocol: Document 05/21/22 11:22 NB (Rec: 05/21/22 12:14 [facility] [id number]) Physical Therapy Assessment Goals Three Impairment Return to sport Short Term Goal (STG) Belinda will lift 20# overhead with 2/10 shoulder pain or less. STG Duration 6 weeks Two Impairment Shoulder pain Short Term Goal (STG) Talia will show at least 165 degrees of active shoulder flexion without pain. 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 LTG Duration 12 weeks One Impairment Knee pain Short Term Goal (STG) Talia will move from sit to stand without knee pain. STG Duration 6 weeks [facility] Goal (LTG) Talia will squat 40# without knee pain. LTG Duration 12 weeks Assessment Summary Assessment Talia demonstrates improving self-awareness of posture but requires cues for scapular setting prior to initiating UE ex's, then self-corrects for remaining set. Pt requires cues for chin tuck, breathholding and scapular setting. Pt tolerates resisted L shoulder IR #2 Tb and rows but resisted L shouler ER is discontinued per pt's complaint of L shoulder pain after six repetitions and pt's UT overactivation. Pt has good feedback response to inferior and posterior L glenohumeral joint mobilizations. Physical Therapy Plan Frequency and Duration Frequency of Treatment 2x/Week Duration of treatment (weeks) 12 Plan of Care Start Date 04/18/22 Plan of Care End Date 07/11/22 Therapeutic Interventions Therapeutic Interventions Home Exercise Program,Manual Therapy,Neuromuscular Re- education,Self-Care/Home Management,Therapeutic Activities,Therapeutic Exercises Modalities Cold Pack/Ice Massage,Electric Stimulation,Hot Packs, Iontophoresis,Ultrasound Other Therapeutic Interventions iontophoresis with dexamethasone Next Visit Focus/Plan Next Note Type Treatment Note Next Visit Plan neck/milton stretches, I, Y, T; Consider LIGHT shoulder resistance at next visit if continuing to feel better. Can progress manual if needed. Continue to encourage pec stretch, I, Y, T. Hip strengthening.
--- NOTE | 2022-06-08 16:18 | PT.OTN ---
Current Diagnoses Pain in left shoulder (06/08/22) Pain in left knee (06/08/22) Physical Therapy Treatment Note PT-OP-A Visit Information Start: 04/14/22 09:51 Freq: Status: Active Protocol: Document 06/08/22 08:15 AMB (Rec: 06/08/22 16:16 AMB [id number]) Out-Patient Physical Therapy Visit Information Visit Information Visit Type Treatment Note Visit Start Time 08:15 Visit Stop Time 09:00 Total Visit Minutes 45 Visit Number 10 PT-OP-B Current Condition Start: 04/14/22 09:51 Freq: Status: Active Protocol: Document 04/18/22 07:31 AMB (Rec: 04/18/22 07:51 AMB [id number]) Current Condition History of Current Condition Onset Date Jan 2020 for the shoulder; mid 2021 knee Current Complaints L shoulder and L knee History of Current Condition Talia reports that she was doing biceps curls and suddenly had a difficult time in January 2020. L shoulder continues to tire out extremely fast. Shoulder gets irritated if trying to get shoulder back. Getting dressed doesn't hurt it but can't really lift weights like she wants. Overhead lifts hurt. As far as the knee, doesn't really trust knee when she's been sitting for a while, especially crossing the leg the knee locks up. 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 Does have previous history of back pain. Prior Treatments and Tests MRI negative for shoulder, Xray of knee negative Treatment Goals Patient/Caregiver Goals Return to gym workouts Prior Functional Status Baseline Function- ADL's Independent Baseline Function- Mobility Independent Personal Factors Other Personal Factors That May Effect Lumbar pain history, active Therapy/Recovery duty PT-OP-C Subjective Start: 04/14/22 09:51 Freq: Status: Active Protocol: Document 06/08/22 08:15 AMB (Rec: 06/08/22 16:16 AMB [id number]) OP-PT Subjective Patient Comments Patient Comments Pt has been sick so hasn't been goign to the gym so the knee has been feeling fine. Has been taking muscle relaxers for jaw pain and that may be helping the [place] pain. PT-OP-J Posture/Palpation/Skin Start: 04/14/22 09:51 Freq: Status: Active Protocol: Document 04/18/22 07:30 AMB (Rec: 04/18/22 13:01 AMB [id number]) Posture Evaluation Comments Posture Comments medial bordern of scapula wings L>R Palpation Assessment Location One Palpation Details Shoulder quite tender to palpation at the long head of the biceps origin. Otherwise no tenderness noted PT-OP-K Range of Motion Start: 04/14/22 09:51 Freq: Status: Active Protocol: Document 04/18/22 07:30 AMB (Rec: 04/18/22 13:01 AMB [id number]) Shoulder Goniometric Range of Motion Shoulder Left Active Testing Position Sitting Flexion 156 Abduction 180 Internal Rotation Behind Back (text) L3 Knee Goniometric Range of Motion Knee ROM Limitations Comments WFL bilaterally, PT-OP-L Special Tests Start: 04/14/22 09:51 Freq: Status: Active Protocol: Document 04/18/22 07:30 AMB (Rec: 04/18/22 13:01 AMB [id number]) Special Tests Knee Special Tests [place] Test Test Results - PT-OP-M Strength Start: 04/14/22 09:51 Freq: Status: Active Protocol: Document 04/18/22 07:30 AMB (Rec: 04/18/22 13:01 AMB [id number]) Shoulder Strength Shoulder Manual Muscle Testing Right Flexion 5 Normal Extension 5 Normal Abduction (C5) 5 Normal External Rotation 5 Normal Internal Rotation 5 Normal Left Flexion 4+ Good+ Extension 5 Normal Abduction (C5) 4 Good External Rotation 4 Good Internal Rotation 4+ Good+ Hip Strength Hip Manual Muscle Testing Right Flexion (L2) 4+ Good+ Extension (S1) 5 Normal Abduction 5 Normal Left Flexion (L2) 4 Good Extension (S1) 4 Good Abduction 4 Good Knee Strength Knee Manual Muscle Testing Right Flexion (S2) 5 Normal Extension (L3) 5 Normal Left Flexion (S2) 4+ Good+ Extension (L3) 4+ Good+ PT-OP-Q Treatments Start: 04/14/22 09:51 Freq: Status: Active Protocol: Document 06/08/22 08:26 AMB (Rec: 06/08/22 09:03 AMB [id number]) Therapeutic Exercises Prone Exercises prone Y Prone Exercise Name pt did feel popping Reps/Minutes 10 Comments AROM shldr horizontal abd Reps/Minutes x10, x10 1# monica Comments partial ROM only shldr ext Reps/Minutes x10, x10 1# monica Comments good tolerance Standing Exercises shoulder IR Resistance #2 t band Reps/Minutes 2x10 Comments UT overactivation w/ fatigue, pt self-corrects rows Standing Exercise Name 1.resisted #2Tb 2. 10# leaning over plinth Reps/Minutes x10 pec stretch Standing Exercise Name varying angles Side left Reps/Minutes 1 minx 3 Comments doorway, monica>Left only Manual Therapy Treatment Soft Tissue Mobilization pec minor tendon Mobilization Type Cross-Friction Intensity/Depth Moderate Comments added in gentle long head biceps, UT PT-OP-R Modalities Start: 04/14/22 09:51 Freq: Status: Active Protocol: Document 06/08/22 08:15 AMB (Rec: 06/08/22 16:16 AMB [id number]) Hot Pack/Cold Pack Treatment Ice Massage Location L shoulder Patient Position Supine Treatment Duration (minutes) 5 Patient Tolerance Good PT-OP-T Assessment and Plan Start: 04/14/22 09:51 Freq: Status: Active Protocol: Document 06/08/22 08:15 AMB (Rec: 06/08/22 16:16 AMB [id number]) Physical Therapy Assessment Goals Three Impairment Return to sport Short Term Goal (STG) Belinda will lift 20# overhead with 2/10 shoulder pain or less. STG Duration 6 weeks Two Impairment Shoulder pain Short Term Goal (STG) Talia will show at least 165 degrees of active shoulder flexion without pain. 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 LTG Duration 12 weeks One Impairment Knee pain Short Term Goal (STG) Talia will move from sit to stand without knee pain. STG Duration 6 weeks Labeling Associate Goal (LTG) Talia will squat 40# without knee pain. LTG Duration 12 weeks Assessment Summary Assessment Talia is tolerating increased strengthening, but continues to be weak especially with biceps and supraspinatus. Encouraged in continued scapular and pec mobility exercises while adding in more strengthening. Physical Therapy Plan Frequency and Duration Frequency of Treatment 2x/Week Duration of treatment (weeks) 12 Plan of Care Start Date 04/18/22 Plan of Care End Date 07/11/22 Therapeutic Interventions Therapeutic Interventions Home Exercise Program,Manual Therapy,Neuromuscular Re- education,Self-Care/Home Management,Therapeutic Activities,Therapeutic Exercises Modalities Cold Pack/Ice Massage,Electric Stimulation,Hot Packs, Iontophoresis,Ultrasound Other Therapeutic Interventions iontophoresis with dexamethasone Next Visit Focus/Plan Next Note Type Treatment Note Next Visit Plan neck/milton stretches, I, Y, T Hip strengthening.
--- NOTE | 2022-06-12 08:55 | PT.OTN ---
Current Diagnoses Pain in left shoulder (06/12/22) Pain in left knee (06/12/22) Physical Therapy Treatment Note PT-OP-A Visit Information Start: 04/14/22 09:51 Freq: Status: Active Protocol: Document 06/12/22 07:29 AMB (Rec: 06/12/22 08:20 AMB [id number]) Out-Patient Physical Therapy Visit Information Visit Information Visit Type Treatment Note Visit Start Time 07:30 Visit Stop Time 08:15 Total Visit Minutes 45 Visit Number 11 PT-OP-B Current Condition Start: 04/14/22 09:51 Freq: Status: Active Protocol: Document 04/18/22 07:31 AMB (Rec: 04/18/22 07:51 AMB [id number]) Current Condition History of Current Condition Onset Date Jan 2020 for the shoulder; mid 2021 knee Current Complaints L shoulder and L knee History of Current Condition Talia reports that she was doing biceps curls and suddenly had a difficult time in January 2020. L shoulder continues to tire out extremely fast. Shoulder gets irritated if trying to get shoulder back. Getting dressed doesn't hurt it but can't really lift weights like she wants. Overhead lifts hurt. As far as the knee, doesn't really trust knee when she's been sitting for a while, especially crossing the leg the knee locks up. 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 Does have previous history of back pain. Prior Treatments and Tests MRI negative for shoulder, Xray of knee negative Treatment Goals Patient/Caregiver Goals Return to gym workouts Prior Functional Status Baseline Function- ADL's Independent Baseline Function- Mobility Independent Personal Factors Other Personal Factors That May Effect Lumbar pain history, active Therapy/Recovery duty PT-OP-C Subjective Start: 04/14/22 09:51 Freq: Status: Active Protocol: Document 06/12/22 07:29 AMB (Rec: 06/12/22 08:20 AMB [id number]) OP-PT Subjective Patient Comments Patient Comments Pt continues to be sick, pt continues to be tight in UT and under shoulder blade. PT-OP-J Posture/Palpation/Skin Start: 04/14/22 09:51 Freq: Status: Active Protocol: Document 04/18/22 07:30 AMB (Rec: 04/18/22 13:01 AMB [id number]) Posture Evaluation Comments Posture Comments medial bordern of scapula wings L>R Palpation Assessment Location One Palpation Details Shoulder quite tender to palpation at the long head of the biceps origin. Otherwise no tenderness noted PT-OP-K Range of Motion Start: 04/14/22 09:51 Freq: Status: Active Protocol: Document 04/18/22 07:30 AMB (Rec: 04/18/22 13:01 AMB [id number]) Shoulder Goniometric Range of Motion Shoulder Left Active Testing Position Sitting Flexion 156 Abduction 180 Internal Rotation Behind Back (text) L3 Knee Goniometric Range of Motion Knee ROM Limitations Comments WFL bilaterally, PT-OP-L Special Tests Start: 04/14/22 09:51 Freq: Status: Active Protocol: Document 04/18/22 07:30 AMB (Rec: 04/18/22 13:01 AMB [id number]) Special Tests Knee Special Tests Ever Test Test Results - PT-OP-M Strength Start: 04/14/22 09:51 Freq: Status: Active Protocol: Document 04/18/22 07:30 AMB (Rec: 04/18/22 13:01 AMB [id number]) Shoulder Strength Shoulder Manual Muscle Testing Right Flexion 5 Normal Extension 5 Normal Abduction (C5) 5 Normal External Rotation 5 Normal Internal Rotation 5 Normal Left Flexion 4+ Good+ Extension 5 Normal Abduction (C5) 4 Good External Rotation 4 Good Internal Rotation 4+ Good+ Hip Strength Hip Manual Muscle Testing Right Flexion (L2) 4+ Good+ Extension (S1) 5 Normal Abduction 5 Normal Left Flexion (L2) 4 Good Extension (S1) 4 Good Abduction 4 Good Knee Strength Knee Manual Muscle Testing Right Flexion (S2) 5 Normal Extension (L3) 5 Normal Left Flexion (S2) 4+ Good+ Extension (L3) 4+ Good+ PT-OP-Q Treatments Start: 04/14/22 09:51 Freq: Status: Active Protocol: Document 06/12/22 07:29 AMB (Rec: 06/12/22 08:20 AMB [id number]) Therapeutic Exercises Sidelying Exercises open book Side left Reps/Minutes 10 Standing Exercises rows Standing Exercise Name 1.resisted #2Tb 2. 10# leaning over plinth Reps/Minutes x10 pec stretch Standing Exercise Name varying angles Side left Reps/Minutes 1 minx 3 Comments doorway, monica>Left only Manual Therapy Treatment Soft Tissue Mobilization pec minor tendon Mobilization Type Cross-Friction Intensity/Depth Moderate Comments added in gentle long head biceps, UT PT-OP-R Modalities Start: 04/14/22 09:51 Freq: Status: Active Protocol: Document 06/08/22 08:15 AMB (Rec: 06/08/22 16:16 AMB [id number]) Hot Pack/Cold Pack Treatment Ice Massage Location L shoulder Patient Position Supine Treatment Duration (minutes) 5 Patient Tolerance Good PT-OP-T Assessment and Plan Start: 04/14/22 09:51 Freq: Status: Active Protocol: Document 06/12/22 08:49 AMB (Rec: 06/12/22 08:55 AMB [id number]) Physical Therapy Assessment Goals Three Impairment Return to sport Short Term Goal (STG) Belinda will lift 20# overhead with 2/10 shoulder pain or less. STG Duration 6 weeks Two Impairment Shoulder pain Short Term Goal (STG) Talia will show at least 165 degrees of active shoulder flexion without pain. 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 LTG Duration 12 weeks One Impairment Knee pain Short Term Goal (STG) Talia will move from sit to stand without knee pain. STG Duration 6 weeks Medical Clerk Goal (LTG) Talia will squat 40# without knee pain. LTG Duration 12 weeks Assessment Summary Assessment Talia is having a more painful week with having a cold. Tightness throughout pec and rhomboids. Physical Therapy Plan Frequency and Duration Frequency of Treatment 2x/Week Duration of treatment (weeks) 12 Plan of Care Start Date 04/18/22 Plan of Care End Date 07/11/22 Therapeutic Interventions Therapeutic Interventions Home Exercise Program,Manual Therapy,Neuromuscular Re- education,Self-Care/Home Management,Therapeutic Activities,Therapeutic Exercises Modalities Cold Pack/Ice Massage,Electric Stimulation,Hot Packs, Iontophoresis,Ultrasound Other Therapeutic Interventions iontophoresis with dexamethasone Next Visit Focus/Plan Next Note Type Treatment Note Next Visit Plan neck/milton stretches, I, Y, T Hip strengthening.
--- NOTE | 2022-06-19 16:20 | PT.OTN ---
Current Diagnoses Pain in left shoulder (06/19/22) Pain in left knee (06/19/22) Physical Therapy Treatment Note PT-OP-A Visit Information Start: 04/14/22 09:51 Freq: Status: Active Protocol: Document 06/19/22 07:33 AMB (Rec: 06/19/22 08:16 AMB [id number]) Out-Patient Physical Therapy Visit Information Visit Information Visit Type Treatment Note Visit Start Time 07:30 Visit Stop Time 08:15 Total Visit Minutes 45 Visit Number 12 PT-OP-B Current Condition Start: 04/14/22 09:51 Freq: Status: Active Protocol: Document 04/18/22 07:31 AMB (Rec: 04/18/22 07:51 AMB [id number]) Current Condition History of Current Condition Onset Date Jan 2020 for the shoulder; mid 2021 knee Current Complaints L shoulder and L knee History of Current Condition Talia reports that she was doing biceps curls and suddenly had a difficult time in January 2020. L shoulder continues to tire out extremely fast. Shoulder gets irritated if trying to get shoulder back. Getting dressed doesn't hurt it but can't really lift weights like she wants. Overhead lifts hurt. As far as the knee, doesn't really trust knee when she's been sitting for a while, especially crossing the leg the knee locks up. 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 Does have previous history of back pain. Prior Treatments and Tests MRI negative for shoulder, Xray of knee negative Treatment Goals Patient/Caregiver Goals Return to gym workouts Prior Functional Status Baseline Function- ADL's Independent Baseline Function- Mobility Independent Personal Factors Other Personal Factors That May Effect Lumbar pain history, active Therapy/Recovery duty PT-OP-C Subjective Start: 04/14/22 09:51 Freq: Status: Active Protocol: Document 06/12/22 07:29 AMB (Rec: 06/12/22 08:20 AMB [id number]) OP-PT Subjective Patient Comments Patient Comments Pt continues to be sick, pt continues to be tight in UT and under shoulder blade. PT-OP-J Posture/Palpation/Skin Start: 04/14/22 09:51 Freq: Status: Active Protocol: Document 04/18/22 07:30 AMB (Rec: 04/18/22 13:01 AMB [id number]) Posture Evaluation Comments Posture Comments medial bordern of scapula wings L>R Palpation Assessment Location One Palpation Details Shoulder quite tender to palpation at the long head of the biceps origin. Otherwise no tenderness noted PT-OP-K Range of Motion Start: 04/14/22 09:51 Freq: Status: Active Protocol: Document 04/18/22 07:30 AMB (Rec: 04/18/22 13:01 AMB [id number]) Shoulder Goniometric Range of Motion Shoulder Left Active Testing Position Sitting Flexion 156 Abduction 180 Internal Rotation Behind Back (text) L3 Knee Goniometric Range of Motion Knee ROM Limitations Comments WFL bilaterally, PT-OP-L Special Tests Start: 04/14/22 09:51 Freq: Status: Active Protocol: Document 04/18/22 07:30 AMB (Rec: 04/18/22 13:01 AMB [id number]) Special Tests Knee Special Tests Ever Test Test Results - PT-OP-M Strength Start: 04/14/22 09:51 Freq: Status: Active Protocol: Document 04/18/22 07:30 AMB (Rec: 04/18/22 13:01 AMB [id number]) Shoulder Strength Shoulder Manual Muscle Testing Right Flexion 5 Normal Extension 5 Normal Abduction (C5) 5 Normal External Rotation 5 Normal Internal Rotation 5 Normal Left Flexion 4+ Good+ Extension 5 Normal Abduction (C5) 4 Good External Rotation 4 Good Internal Rotation 4+ Good+ Hip Strength Hip Manual Muscle Testing Right Flexion (L2) 4+ Good+ Extension (S1) 5 Normal Abduction 5 Normal Left Flexion (L2) 4 Good Extension (S1) 4 Good Abduction 4 Good Knee Strength Knee Manual Muscle Testing Right Flexion (S2) 5 Normal Extension (L3) 5 Normal Left Flexion (S2) 4+ Good+ Extension (L3) 4+ Good+ PT-OP-Q Treatments Start: 04/14/22 09:51 Freq: Status: Active Protocol: Document 06/19/22 07:33 AMB (Rec: 06/19/22 08:16 AMB [id number]) Gym Equipment Cable Column (Body Solid) Lat Pull Down Details 20# Reps/Time 2x10 Therapeutic Exercises Standing Exercises wall pushups Standing Exercise Name 10 Comments no increase in sx today shoulder ER Resistance #2 t band Equipment Used towel roll Reps/Minutes x10 shoulder IR Resistance #2 t band Reps/Minutes 2x10 Comments UT overactivation w/ fatigue, pt self-corrects rows Standing Exercise Name 1.resisted #2Tb 2. 10# leaning over plinth Reps/Minutes 2x10 pec stretch Standing Exercise Name varying angles Side left Reps/Minutes 1 minx 3 Comments doorway, monica>Left only Manual Therapy Treatment Soft Tissue Mobilization pec minor tendon Mobilization Type Cross-Friction Intensity/Depth Moderate Comments added in gentle long head biceps, UT PT-OP-R Modalities Start: 04/14/22 09:51 Freq: Status: Active Protocol: Document 06/08/22 08:15 AMB (Rec: 06/08/22 16:16 AMB [id number]) Hot Pack/Cold Pack Treatment Ice Massage Location L shoulder Patient Position Supine Treatment Duration (minutes) 5 Patient Tolerance Good PT-OP-T Assessment and Plan Start: 04/14/22 09:51 Freq: Status: Active Protocol: Document 06/19/22 07:33 AMB (Rec: 06/19/22 08:16 AMB [id number]) Physical Therapy Assessment Goals Three Impairment Return to sport Short Term Goal (STG) Belinda will lift 20# overhead with 2/10 shoulder pain or less. STG Duration 6 weeks Two Impairment Shoulder pain Short Term Goal (STG) Talia will show at least 165 degrees of active shoulder flexion without pain. STG Duration 6 weeks Department Editor Goal (LTG) Talia will have 0/10 shoulder pain with twisting activities at work as a power equipment mechanics instructor. LTG Duration 12 weeks One Impairment Knee pain Short Term Goal (STG) Talia will move from sit to stand without knee pain. STG Duration 6 weeks Department Editor Goal (LTG) Talia will squat 40# without knee pain. LTG Duration 12 weeks Assessment Summary Assessment Talia wants to get back to lifting weights, did well with lat pull down today. Try I,Y ,T with weights at next visit. Physical Therapy Plan Frequency and Duration Frequency of Treatment 2x/Week Duration of treatment (weeks) 12 Plan of Care Start Date 04/18/22 Plan of Care End Date 07/11/22 Therapeutic Interventions Therapeutic Interventions Home Exercise Program,Manual Therapy,Neuromuscular Re- education,Self-Care/Home Management,Therapeutic Activities,Therapeutic Exercises Modalities Cold Pack/Ice Massage,Electric Stimulation,Hot Packs, Iontophoresis,Ultrasound Other Therapeutic Interventions iontophoresis with dexamethasone
--- NOTE | 2022-06-22 18:51 | PT.OTN ---
Current Diagnoses Pain in left shoulder (06/22/22) Pain in left knee (06/22/22) Physical Therapy Treatment Note PT-OP-A Visit Information Start: 04/14/22 09:51 Freq: Status: Active Protocol: Document 06/22/22 07:37 AMB (Rec: 06/22/22 08:17 AMB [id number]) Out-Patient Physical Therapy Visit Information Visit Information Visit Type Treatment Note Visit Start Time 07:30 Visit Stop Time 08:15 Total Visit Minutes 45 Visit Number 13 PT-OP-B Current Condition Start: 04/14/22 09:51 Freq: Status: Active Protocol: Document 04/18/22 07:31 AMB (Rec: 04/18/22 07:51 AMB [id number]) Current Condition History of Current Condition Onset Date Jan 2020 for the shoulder; mid 2021 knee Current Complaints L shoulder and L knee History of Current Condition Talia reports that she was doing biceps curls and suddenly had a difficult time in January 2020. L shoulder continues to tire out extremely fast. Shoulder gets irritated if trying to get shoulder back. Getting dressed doesn't hurt it but can't really lift weights like she wants. Overhead lifts hurt. As far as the knee, doesn't really trust knee when she's been sitting for a while, especially crossing the leg the knee locks up. 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 Does have previous history of back pain. Prior Treatments and Tests MRI negative for shoulder, Xray of knee negative Treatment Goals Patient/Caregiver Goals Return to gym workouts Prior Functional Status Baseline Function- ADL's Independent Baseline Function- Mobility Independent Personal Factors Other Personal Factors That May Effect Lumbar pain history, active Therapy/Recovery duty PT-OP-C Subjective Start: 04/14/22 09:51 Freq: Status: Active Protocol: Document 06/22/22 07:37 AMB (Rec: 06/22/22 08:17 AMB [id number]) OP-PT Subjective Patient Comments Patient Comments Pt worked legs yesterday and is sore but her knee is feeling ok. PT-OP-J Posture/Palpation/Skin Start: 04/14/22 09:51 Freq: Status: Active Protocol: Document 04/18/22 07:30 AMB (Rec: 04/18/22 13:01 AMB [id number]) Posture Evaluation Comments Posture Comments medial bordern of scapula wings L>R Palpation Assessment Location One Palpation Details Shoulder quite tender to palpation at the long head of the biceps origin. Otherwise no tenderness noted PT-OP-K Range of Motion Start: 04/14/22 09:51 Freq: Status: Active Protocol: Document 04/18/22 07:30 AMB (Rec: 04/18/22 13:01 AMB [id number]) Shoulder Goniometric Range of Motion Shoulder Left Active Testing Position Sitting Flexion 156 Abduction 180 Internal Rotation Behind Back (text) L3 Knee Goniometric Range of Motion Knee ROM Limitations Comments WFL bilaterally, PT-OP-L Special Tests Start: 04/14/22 09:51 Freq: Status: Active Protocol: Document 04/18/22 07:30 AMB (Rec: 04/18/22 13:01 AMB [id number]) Special Tests Knee Special Tests Ever Test Test Results - PT-OP-M Strength Start: 04/14/22 09:51 Freq: Status: Active Protocol: Document 04/18/22 07:30 AMB (Rec: 04/18/22 13:01 AMB [id number]) Shoulder Strength Shoulder Manual Muscle Testing Right Flexion 5 Normal Extension 5 Normal Abduction (C5) 5 Normal External Rotation 5 Normal Internal Rotation 5 Normal Left Flexion 4+ Good+ Extension 5 Normal Abduction (C5) 4 Good External Rotation 4 Good Internal Rotation 4+ Good+ Hip Strength Hip Manual Muscle Testing Right Flexion (L2) 4+ Good+ Extension (S1) 5 Normal Abduction 5 Normal Left Flexion (L2) 4 Good Extension (S1) 4 Good Abduction 4 Good Knee Strength Knee Manual Muscle Testing Right Flexion (S2) 5 Normal Extension (L3) 5 Normal Left Flexion (S2) 4+ Good+ Extension (L3) 4+ Good+ PT-OP-Q Treatments Start: 04/14/22 09:51 Freq: Status: Active Protocol: Document 06/22/22 07:30 AMB (Rec: 06/22/22 08:17 AMB [id number]) Gym Equipment Cable Column (Body Solid) Rows Resistance 20 Reps/Time 1x12 Lat Pull Down Details 20# Reps/Time 2x10 Therapeutic Exercises Prone Exercises prone Y Side bilateral Resistance #1 Reps/Minutes 10 Comments AROM shldr horizontal abd Side bilateral Reps/Minutes x10, x10 1# monica Comments partial ROM only shldr ext Side bilateral Reps/Minutes x10, x10 1# monica Comments good tolerance Standing Exercises pec stretch Standing Exercise Name varying angles Side left Reps/Minutes 1 minx 3 Comments doorway, monica>Left only Manual Therapy Treatment Soft Tissue Mobilization biceps Mobilization Type Myofascial Release,Sustained Pressure Intensity/Depth Superficial Body Position Hooklying PT-OP-R Modalities Start: 04/14/22 09:51 Freq: Status: Active Protocol: Document 06/08/22 08:15 AMB (Rec: 06/08/22 16:16 AMB [id number]) Hot Pack/Cold Pack Treatment Ice Massage Location L shoulder Patient Position Supine Treatment Duration (minutes) 5 Patient Tolerance Good PT-OP-T Assessment and Plan Start: 04/14/22 09:51 Freq: Status: Active Protocol: Document 06/22/22 07:30 AMB (Rec: 06/22/22 08:17 AMB [id number]) Physical Therapy Assessment Goals Three Impairment Return to sport Short Term Goal (STG) Belinda will lift 20# overhead with 2/10 shoulder pain or less. STG Duration 6 weeks Two Impairment Shoulder pain Short Term Goal (STG) Talia will show at least 165 degrees of active shoulder flexion without pain. 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 LTG Duration 12 weeks One Impairment Knee pain Short Term Goal (STG) Talia will move from sit to stand without knee pain. STG Duration MET Prison Goal (LTG) Talia will squat 40# without knee pain. LTG Duration MET Assessment Summary Assessment Talia has recovered from her cold and has returned to gym work now. Overall her knee is improving, and her scapular pain is improving, but pain at biceps continues to be problematic, we are working on return to gym lifting and for example lat pull down is fine but rows which are a bit more biceps heavy are more of a struggle. Physical Therapy Plan Frequency and Duration Frequency of Treatment 2x/Week Duration of treatment (weeks) 12 Plan of Care Start Date 04/18/22 Plan of Care End Date 07/11/22
--- NOTE | 2022-06-25 17:23 | PT.OTN ---
Current Diagnoses Pain in left shoulder (06/25/22) Pain in left knee (06/25/22) Physical Therapy Treatment Note PT-OP-A Visit Information Start: 04/14/22 09:51 Freq: Status: Active Protocol: Document 06/25/22 12:33 NBM (Rec: 06/25/22 13:54 NBM [id number]) Out-Patient Physical Therapy Visit Information Visit Information Visit Type Treatment Note Visit Start Time 13:03 Visit Stop Time 13:45 Total Visit Minutes 42 Visit Number 14 Number of [employer]ER Visits 1 PT-OP-B Current Condition Start: 04/14/22 09:51 Freq: Status: Active Protocol: Document 04/18/22 07:31 AMB (Rec: 04/18/22 07:51 AMB [id number]) Current Condition History of Current Condition Onset Date Jan 2020 for the shoulder; mid 2021 knee Current Complaints L shoulder and L knee History of Current Condition Talia reports that she was doing biceps curls and suddenly had a difficult time in January 2020. L shoulder continues to tire out extremely fast. Shoulder gets irritated if trying to get shoulder back. Getting dressed doesn't hurt it but can't really lift weights like she wants. Overhead lifts hurt. As far as the knee, doesn't really trust knee when she's been sitting for a while, especially crossing the leg the knee locks up. 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 Does have previous history of back pain. Prior Treatments and Tests MRI negative for shoulder, Xray of knee negative Treatment Goals Patient/Caregiver Goals Return to gym workouts Prior Functional Status Baseline Function- ADL's Independent Baseline Function- Mobility Independent Personal Factors Other Personal Factors That May Effect Lumbar pain history, active Therapy/Recovery duty PT-OP-C Subjective Start: 04/14/22 09:51 Freq: Status: Active Protocol: Document 06/25/22 12:33 NBM (Rec: 06/25/22 13:54 NBM [id number]) OP-PT Subjective Patient Comments Patient Comments Pt reports pain is mostly in L biceps and a spot in her L upper trapezius. She reports steady progress overall, and hasn't felt herself go backwards. Her L shoulder is not popping as aggressively as it used to, which is a good thing. She has limited her gym activity to her legs and progressed from once a week to twice a week. She's due for PRT at work but plans to request not to perform it until her shoulder has progressed more. The ice pack helps her shoulder. PT-OP-J Posture/Palpation/Skin Start: 04/14/22 09:51 Freq: Status: Active Protocol: Document 04/18/22 07:30 AMB (Rec: 04/18/22 13:01 AMB [id number]) Posture Evaluation Comments Posture Comments medial bordern of scapula wings L>R Palpation Assessment Location One Palpation Details Shoulder quite tender to palpation at the long head of the biceps origin. Otherwise no tenderness noted PT-OP-K Range of Motion Start: 04/14/22 09:51 Freq: Status: Active Protocol: Document 04/18/22 07:30 AMB (Rec: 04/18/22 13:01 AMB [id number]) Shoulder Goniometric Range of Motion Shoulder Left Active Testing Position Sitting Flexion 156 Abduction 180 Internal Rotation Behind Back (text) L3 Knee Goniometric Range of Motion Knee ROM Limitations Comments WFL bilaterally, PT-OP-L Special Tests Start: 04/14/22 09:51 Freq: Status: Active Protocol: Document 04/18/22 07:30 AMB (Rec: 04/18/22 13:01 AMB [id number]) Special Tests Knee Special Tests Ever Test Test Results - PT-OP-M Strength Start: 04/14/22 09:51 Freq: Status: Active Protocol: Document 04/18/22 07:30 AMB (Rec: 04/18/22 13:01 AMB [id number]) Shoulder Strength Shoulder Manual Muscle Testing Right Flexion 5 Normal Extension 5 Normal Abduction (C5) 5 Normal External Rotation 5 Normal Internal Rotation 5 Normal Left Flexion 4+ Good+ Extension 5 Normal Abduction (C5) 4 Good External Rotation 4 Good Internal Rotation 4+ Good+ Hip Strength Hip Manual Muscle Testing Right Flexion (L2) 4+ Good+ Extension (S1) 5 Normal Abduction 5 Normal Left Flexion (L2) 4 Good Extension (S1) 4 Good Abduction 4 Good Knee Strength Knee Manual Muscle Testing Right Flexion (S2) 5 Normal Extension (L3) 5 Normal Left Flexion (S2) 4+ Good+ Extension (L3) 4+ Good+ PT-OP-Q Treatments Start: 04/14/22 09:51 Freq: Status: Active Protocol: Document 06/25/22 12:33 [facility] (Rec: 06/25/22 13:54 [facility] [id number]) Therapeutic Exercises Prone Exercises prone Y Side bilateral Resistance #1 Equipment Used EX Ball Reps/Minutes 10 Comments AROM shldr horizontal abd Side bilateral Equipment Used EX Ball Reps/Minutes x10 1# monica, x5 2# Comments partial ROM only shldr ext Side bilateral Equipment Used EX Ball Reps/Minutes x10 1# monica Comments good tolerance Sitting Exercises self-STM Sitting Exercise Name Trigger point release to L UT Side left Equipment Used theracane Reps/Minutes x60s Comments initial instruction, + feedback response stretch Sitting Exercise Name 1. B UT 2. B LS Side bilateral Reps/Minutes x30s ea Comments + feedback response, L UT tightness>R Standing Exercises shoulder ER Resistance #2 t band Equipment Used slim towel roll Reps/Minutes x5 Comments dc'd d/t L bicep pain shoulder IR Resistance #2 t band Equipment Used slim towel roll Reps/Minutes 2x10 Comments no pain, good form pec stretch Standing Exercise Name varying angles Side left Reps/Minutes 1 minx 3 Comments doorway, monica>Left only Manual Therapy Treatment Soft Tissue Mobilization biceps Mobilization Type Myofascial Release, Oscillations,Sustained Pressure Intensity/Depth Superficial Body Position Hooklying pec minor tendon Mobilization Type Cross-Friction Intensity/Depth Moderate Comments added in gentle long head biceps, UT Self-Care/Home Management Treatment Education Patient Education Body Mechanics,Home Exercise Program,Pain Management, Posture Other Education -Pt has a positive feedback response to self-STM w/ theracane to L Upper trapezius mm. -Discussed w/ pt with prone shoulder horizonal abd starting w/ 5 reps 2# then 10 reps 1# to avoid loss of form due to fatigue, and reminded not to push through pain or hold breath w/ exercises. PT-OP-R Modalities Start: 04/14/22 09:51 Freq: Status: Active Protocol: Document 06/25/22 12:33 [facility] (Rec: 06/25/22 13:54 [facility] [id number]) Hot Pack/Cold Pack Treatment Cold Pack Location L shoulder Patient Position Hooklying Treatment Duration (minutes) 10 Patient Tolerance Good Comments lumbar size PT-OP-T Assessment and Plan Start: 04/14/22 09:51 Freq: Status: Active Protocol: Document 06/25/22 12:33 [facility] (Rec: 06/25/22 13:54 [facility] [id number]) Physical Therapy Assessment Impairments Impairments Pain,Posture,ROM,Strength Goals Three Impairment Return to sport Short Term Goal (STG) Belinda will lift 20# overhead with 2/10 shoulder pain or less. STG Duration 6 weeks Two Impairment Shoulder pain Short Term Goal (STG) Talia will show at least 165 degrees of active shoulder flexion without pain. 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 LTG Duration 12 weeks One Impairment Knee pain Short Term Goal (STG) Talia will move from sit to stand without knee pain. STG Duration MET Assisted Goal (LTG) Talia will squat 40# without knee pain. LTG Duration MET Assessment Summary Assessment Pt demonstrates improving posterior chain strength w/ shoulder extension and horizontal abduction but fatigues more easily with increasing shoulder flexion as seen today with prone Y on therapy ball. Pt's L UT symptoms w/ prone shoulder ext improve w/ stretching UT and LS first. Discussed w/ pt with prone shoulder horizonal abd starting w/ 5 reps 2# then 10 reps 1# to avoid loss of form due to fatigue, and reminded not to push through pain or hold breath w/ ex. Pt has a positive feedback response to self-STM w/ theracane to L Upper trapezius mm. Physical Therapy Plan Frequency and Duration Frequency of Treatment 2x/Week Duration of treatment (weeks) 12 Plan of Care Start Date 04/18/22 Plan of Care End Date 07/11/22 Therapeutic Interventions Therapeutic Interventions Home Exercise Program,Manual Therapy,Neuromuscular Re- education,Self-Care/Home Management,Therapeutic Activities,Therapeutic Exercises Modalities Cold Pack/Ice Massage,Electric Stimulation,Hot Packs, Iontophoresis,Ultrasound Other Therapeutic Interventions iontophoresis with dexamethasone Next Visit Focus/Plan Next Note Type Treatment Note Next Visit Plan neck/milton stretches, I, Y, T Hip strengthening.
--- NOTE | 2022-06-27 08:18 | PT.OTN ---
Current Diagnoses Pain in left shoulder (06/27/22) Pain in left knee (06/27/22) Physical Therapy Treatment Note PT-OP-A Visit Information Start: 04/14/22 09:51 Freq: Status: Active Protocol: Document 06/27/22 07:42 AMB (Rec: 06/27/22 08:18 AMB [id number]) Out-Patient Physical Therapy Visit Information Visit Information Visit Type Treatment Note Visit Start Time 07:40 Visit Stop Time 08:10 Total Visit Minutes 35 Visit Number 15 PT-OP-B Current Condition Start: 04/14/22 09:51 Freq: Status: Active Protocol: Document 04/18/22 07:31 AMB (Rec: 04/18/22 07:51 AMB [id number]) Current Condition History of Current Condition Onset Date Jan 2020 for the shoulder; mid 2021 knee Current Complaints L shoulder and L knee History of Current Condition Talia reports that she was doing biceps curls and suddenly had a difficult time in January 2020. L shoulder continues to tire out extremely fast. Shoulder gets irritated if trying to get shoulder back. Getting dressed doesn't hurt it but can't really lift weights like she wants. Overhead lifts hurt. As far as the knee, doesn't really trust knee when she's been sitting for a while, especially crossing the leg the knee locks up. 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 Does have previous history of back pain. Prior Treatments and Tests MRI negative for shoulder, Xray of knee negative Treatment Goals Patient/Caregiver Goals Return to gym workouts Prior Functional Status Baseline Function- ADL's Independent Baseline Function- Mobility Independent Personal Factors Other Personal Factors That May Effect Lumbar pain history, active Therapy/Recovery duty PT-OP-C Subjective Start: 04/14/22 09:51 Freq: Status: Active Protocol: Document 06/27/22 07:42 AMB (Rec: 06/27/22 08:18 AMB [id number]) OP-PT Subjective Patient Comments Patient Comments Pt feeling like biceps is the last part that still hasn't fully resolved. PT-OP-J Posture/Palpation/Skin Start: 04/14/22 09:51 Freq: Status: Active Protocol: Document 04/18/22 07:30 AMB (Rec: 04/18/22 13:01 AMB [id number]) Posture Evaluation Comments Posture Comments medial bordern of scapula wings L>R Palpation Assessment Location One Palpation Details Shoulder quite tender to palpation at the long head of the biceps origin. Otherwise no tenderness noted PT-OP-K Range of Motion Start: 04/14/22 09:51 Freq: Status: Active Protocol: Document 04/18/22 07:30 AMB (Rec: 04/18/22 13:01 AMB [id number]) Shoulder Goniometric Range of Motion Shoulder Left Active Testing Position Sitting Flexion 156 Abduction 180 Internal Rotation Behind Back (text) L3 Knee Goniometric Range of Motion Knee ROM Limitations Comments WFL bilaterally, PT-OP-L Special Tests Start: 04/14/22 09:51 Freq: Status: Active Protocol: Document 04/18/22 07:30 AMB (Rec: 04/18/22 13:01 AMB [id number]) Special Tests Knee Special Tests Ever Test Test Results - PT-OP-M Strength Start: 04/14/22 09:51 Freq: Status: Active Protocol: Document 04/18/22 07:30 AMB (Rec: 04/18/22 13:01 AMB [id number]) Shoulder Strength Shoulder Manual Muscle Testing Right Flexion 5 Normal Extension 5 Normal Abduction (C5) 5 Normal External Rotation 5 Normal Internal Rotation 5 Normal Left Flexion 4+ Good+ Extension 5 Normal Abduction (C5) 4 Good External Rotation 4 Good Internal Rotation 4+ Good+ Hip Strength Hip Manual Muscle Testing Right Flexion (L2) 4+ Good+ Extension (S1) 5 Normal Abduction 5 Normal Left Flexion (L2) 4 Good Extension (S1) 4 Good Abduction 4 Good Knee Strength Knee Manual Muscle Testing Right Flexion (S2) 5 Normal Extension (L3) 5 Normal Left Flexion (S2) 4+ Good+ Extension (L3) 4+ Good+ PT-OP-Q Treatments Start: 04/14/22 09:51 Freq: Status: Active Protocol: Document 06/27/22 07:42 AMB (Rec: 06/27/22 08:18 AMB [id number]) Gym Equipment Cable Column (Body Solid) Lat Pull Down Details 20# Reps/Time 2x10 Therapeutic Exercises Supine Exercises pec stretch Supine Exercise Name over 65cm ball Prone Exercises prone Y Side bilateral Resistance #1 Equipment Used EX Ball Reps/Minutes 10 Comments AROM shldr horizontal abd Side bilateral Equipment Used EX Ball Reps/Minutes x10 1# monica, x5 2# Comments partial ROM only shldr ext Side bilateral Equipment Used EX Ball Reps/Minutes x10 1# monica Comments good tolerance Sitting Exercises biceps Sitting Exercise Name 2# Reps/Minutes 1x10; 1x5 Manual Therapy Treatment Soft Tissue Mobilization biceps Mobilization Type Myofascial Release, Oscillations,Sustained Pressure Intensity/Depth Superficial Body Position Hooklying PT-OP-R Modalities Start: 04/14/22 09:51 Freq: Status: Active Protocol: Document 06/25/22 12:33 NBM (Rec: 06/25/22 13:54 NBM [id number]) Hot Pack/Cold Pack Treatment Cold Pack Location L shoulder Patient Position Hooklying Treatment Duration (minutes) 10 Patient Tolerance Good Comments lumbar size PT-OP-T Assessment and Plan Start: 04/14/22 09:51 Freq: Status: Active Protocol: Document 06/27/22 07:42 AMB (Rec: 06/27/22 08:18 AMB [id number]) Physical Therapy Assessment Goals Three Impairment Return to sport Short Term Goal (STG) Belinda will lift 20# overhead with 2/10 shoulder pain or less. STG Duration 6 weeks Two Impairment Shoulder pain Short Term Goal (STG) Talia will show at least 165 degrees of active shoulder flexion without pain. 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 LTG Duration 12 weeks One Impairment Knee pain Short Term Goal (STG) Talia will move from sit to stand without knee pain. STG Duration MET Correction Goal (LTG) Talia will squat 40# without knee pain. LTG Duration MET Assessment Summary Assessment Pt is doing well, continues to have significant weakness in biceps. Fatigues/mild pain with 2#biceps curs. Physical Therapy Plan Frequency and Duration Frequency of Treatment 2x/Week Duration of treatment (weeks) 12 Plan of Care Start Date 04/18/22 Plan of Care End Date 07/11/22 Therapeutic Interventions Therapeutic Interventions Home Exercise Program,Manual Therapy,Neuromuscular Re- education,Self-Care/Home Management,Therapeutic Activities,Therapeutic Exercises Modalities Cold Pack/Ice Massage,Electric Stimulation,Hot Packs, Iontophoresis,Ultrasound Other Therapeutic Interventions iontophoresis with dexamethasone Next Visit Focus/Plan Next Note Type Treatment Note Next Visit Plan neck/milton stretches, I, Y, T Hip strengthening.
--- NOTE | 2022-07-06 10:37 | PT.OPPOC ---
Physical, Occupational & Speech Therapy At [facility] Current Diagnoses Pain in left shoulder (06/27/22) Pain in left knee (06/27/22) Visit Care Team Role Provider Type Nayan Milner DO Attending Provider Non-Staff Family Provider Primary Care Provider Referring Provider Specialty: Family Practice Address: [address] [place] [address], [id number] Email: Plan Of Care PT-OP-T Assessment and Plan Start: 04/14/22 09:51 Freq: Status: Active Protocol: Document 07/06/22 10:33 AMB (Rec: 07/06/22 10:37 AMB [id number]) Physical Therapy Assessment Goals Three Impairment Return to sport Short Term Goal (STG) Belinda will lift 20# overhead with 2/10 shoulder pain or less. STG Duration 6 weeks Two Impairment Shoulder pain Short Term Goal (STG) Talia will show at least 165 degrees of active shoulder flexion without pain. 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 LTG Duration 12 weeks One Impairment Knee pain Short Term Goal (STG) Talia will move from sit to stand without knee pain. STG Duration MET Penitentiary Goal (LTG) Talia will squat 40# without knee pain. LTG Duration MET Assessment Summary Assessment Talia has met her knee goals. her shoulder is improving, scapular pain is significantly improved, but biceps pain continues. Physical Therapy Plan Frequency and Duration Frequency of Treatment 1x/Week Duration of treatment (weeks) 8 Plan of Care Start Date 07/06/22 Plan of Care End Date 08/31/22 Therapeutic Interventions Therapeutic Interventions Home Exercise Program,Manual Therapy,Neuromuscular Re- education,Self-Care/Home Management,Therapeutic Activities,Therapeutic Exercises Modalities Cold Pack/Ice Massage,Electric Stimulation,Hot Packs, Iontophoresis,Ultrasound Other Therapeutic Interventions iontophoresis with dexamethasone Next Visit Focus/Plan Next Note Type Treatment Note Next Visit Plan neck/milton stretches, I, Y, T Hip strengthening. Plan of Care Dates Plan of Care Start Date 07/06/22 Plan of Care End Date 08/31/22 Electronically Signed by: Tameka Ortiz, PT 07/06/22 1037 If you are in agreement with this Plan of Care, please return a signed and dated copy. I have reviewed this Plan of Care and certify that the skilled therapy services above are required to meet the patient?s needs. Physician Signature Date Printed Name and Credentials Clinical Instructor Signature Printed Name and Credentials
--- NOTE | 2022-07-12 09:11 | PT.OTN ---
Current Diagnoses Pain in left shoulder (07/12/22) Pain in left knee (07/12/22) Physical Therapy Treatment Note PT-OP-A Visit Information Start: 04/14/22 09:51 Freq: Status: Active Protocol: Document 07/12/22 08:20 SP (Rec: 07/12/22 09:07 SP [id number]) Out-Patient Physical Therapy Visit Information Visit Information Visit Type Treatment Note Visit Start Time 08:21 Visit Stop Time 09:11 Total Visit Minutes 50 Visit Number 16 Number of DOCKING SAW OPERATOR Visits 1 PT-OP-B Current Condition Start: 04/14/22 09:51 Freq: Status: Active Protocol: Document 04/18/22 07:31 AMB (Rec: 04/18/22 07:51 AMB [id number]) Current Condition History of Current Condition Onset Date Jan 2020 for the shoulder; mid 2021 knee Current Complaints L shoulder and L knee History of Current Condition Talia reports that she was doing biceps curls and suddenly had a difficult time in January 2020. L shoulder continues to tire out extremely fast. Shoulder gets irritated if trying to get shoulder back. Getting dressed doesn't hurt it but can't really lift weights like she wants. Overhead lifts hurt. As far as the knee, doesn't really trust knee when she's been sitting for a while, especially crossing the leg the knee locks up. 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 Does have previous history of back pain. Prior Treatments and Tests MRI negative for shoulder, Xray of knee negative Treatment Goals Patient/Caregiver Goals Return to gym workouts Prior Functional Status Baseline Function- ADL's Independent Baseline Function- Mobility Independent Personal Factors Other Personal Factors That May Effect Lumbar pain history, active Therapy/Recovery duty PT-OP-C Subjective Start: 04/14/22 09:51 Freq: Status: Active Protocol: Document 07/12/22 08:20 SP (Rec: 07/12/22 09:07 SP [id number]) OP-PT Subjective Patient Comments Patient Comments Pt reported has been out for last week sick and low/no work outs. Went to gym yesterday PT-OP-J Posture/Palpation/Skin Start: 04/14/22 09:51 Freq: Status: Active Protocol: Document 04/18/22 07:30 AMB (Rec: 04/18/22 13:01 AMB [id number]) Posture Evaluation Comments Posture Comments medial bordern of scapula wings L>R Palpation Assessment Location One Palpation Details Shoulder quite tender to palpation at the long head of the biceps origin. Otherwise no tenderness noted PT-OP-K Range of Motion Start: 04/14/22 09:51 Freq: Status: Active Protocol: Document 04/18/22 07:30 AMB (Rec: 04/18/22 13:01 AMB [id number]) Shoulder Goniometric Range of Motion Shoulder Left Active Testing Position Sitting Flexion 156 Abduction 180 Internal Rotation Behind Back (text) L3 Knee Goniometric Range of Motion Knee ROM Limitations Comments WFL bilaterally, PT-OP-L Special Tests Start: 04/14/22 09:51 Freq: Status: Active Protocol: Document 04/18/22 07:30 AMB (Rec: 04/18/22 13:01 AMB [id number]) Special Tests Knee Special Tests Ever Test Test Results - PT-OP-M Strength Start: 04/14/22 09:51 Freq: Status: Active Protocol: Document 04/18/22 07:30 AMB (Rec: 04/18/22 13:01 AMB [id number]) Shoulder Strength Shoulder Manual Muscle Testing Right Flexion 5 Normal Extension 5 Normal Abduction (C5) 5 Normal External Rotation 5 Normal Internal Rotation 5 Normal Left Flexion 4+ Good+ Extension 5 Normal Abduction (C5) 4 Good External Rotation 4 Good Internal Rotation 4+ Good+ Hip Strength Hip Manual Muscle Testing Right Flexion (L2) 4+ Good+ Extension (S1) 5 Normal Abduction 5 Normal Left Flexion (L2) 4 Good Extension (S1) 4 Good Abduction 4 Good Knee Strength Knee Manual Muscle Testing Right Flexion (S2) 5 Normal Extension (L3) 5 Normal Left Flexion (S2) 4+ Good+ Extension (L3) 4+ Good+ PT-OP-Q Treatments Start: 04/14/22 09:51 Freq: Status: Active Protocol: Document 07/12/22 08:20 SP (Rec: 07/12/22 09:07 SP [id number]) Gym Equipment Cable Column (Body Solid) Lat Pull Down Details 20# Reps/Time 2x10 Therapeutic Exercises Prone Exercises prone Y Side bilateral Resistance #1 Equipment Used EX Ball Reps/Minutes 10 Comments good self corrections LT fac shldr horizontal abd Prone Exercise Name HEP form reviewed Side bilateral Equipment Used EX Ball Reps/Minutes x10 1# monica, 2x5 2# Comments cued arm not back beyond body and LT fac to decrease winging noted shldr ext Prone Exercise Name HEP reviewed Side bilateral Equipment Used EX Ball Reps/Minutes x10 1# monica, x10 2# B Comments good tolerance, cued head neutral ext, arms not passed Other Exercises self STMs Other Exercise Name ball wall L inter scap/UT, theracane neck/ UT Side left Comments good feedback response PT-OP-R Modalities Start: 04/14/22 09:51 Freq: Status: Active Protocol: Document 07/12/22 08:20 SP (Rec: 07/12/22 09:07 SP [id number]) Hot Pack/Cold Pack Treatment Cold Pack Location L shoulder Patient Position Hooklying Treatment Duration (minutes) 10 Patient Tolerance Good Comments cervical CP PT-OP-T Assessment and Plan Start: 04/14/22 09:51 Freq: Status: Active Protocol: Document 07/12/22 08:20 SP (Rec: 07/12/22 09:07 SP [id number]) Physical Therapy Assessment Goals Three Impairment Return to sport Short Term Goal (STG) Belinda will lift 20# overhead with 2/10 shoulder pain or less. STG Duration 6 weeks Two Impairment Shoulder pain Short Term Goal (STG) Talia will show at least 165 degrees of active shoulder flexion without pain. 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 LTG Duration 12 weeks One Impairment Knee pain Short Term Goal (STG) Talia will move from sit to stand without knee pain. STG Duration MET Snf Goal (LTG) Talia will squat 40# without knee pain. LTG Duration MET Assessment Summary Assessment Pt good feedback response to ed manual and ball wall, safety caution foam rolling over LS, and requested cues for scap stabilization low resistance form. Pt improved self corrections, cued needed for CS ext with little more chin tuck, UE extension not beyond side trunk. Weakness in serratus facilitiation during Ts/Flys. Physical Therapy Plan Frequency and Duration Frequency of Treatment 1x/Week Duration of treatment (weeks) 8 Plan of Care Start Date 07/06/22 Plan of Care End Date 08/31/22 Therapeutic Interventions Therapeutic Interventions Home Exercise Program,Manual Therapy,Neuromuscular Re- education,Self-Care/Home Management,Therapeutic Activities,Therapeutic Exercises Modalities Cold Pack/Ice Massage,Electric Stimulation,Hot Packs, Iontophoresis,Ultrasound Other Therapeutic Interventions iontophoresis with dexamethasone Next Visit Focus/Plan Next Note Type Treatment Note Next Visit Plan Continue Serratus Anterior strengthing. POC: neck/milton stretches, I, Y, T Hip strengthening.
--- NOTE | 2022-07-24 15:09 | PT.OTN ---
Current Diagnoses Pain in left shoulder (07/24/22) Pain in left knee (07/24/22) Physical Therapy Treatment Note PT-OP-A Visit Information Start: 04/14/22 09:51 Freq: Status: Active Protocol: Document 07/24/22 13:55 AMB (Rec: 07/24/22 14:21 AMB [id number]) Out-Patient Physical Therapy Visit Information Visit Information Visit Type Treatment Note Visit Start Time 13:50 Visit Stop Time 14:30 Total Visit Minutes 40 Visit Number 17 PT-OP-B Current Condition Start: 04/14/22 09:51 Freq: Status: Active Protocol: Document 04/18/22 07:31 AMB (Rec: 04/18/22 07:51 AMB [id number]) Current Condition History of Current Condition Onset Date Jan 2020 for the shoulder; mid 2021 knee Current Complaints L shoulder and L knee History of Current Condition Talia reports that she was doing biceps curls and suddenly had a difficult time in January 2020. L shoulder continues to tire out extremely fast. Shoulder gets irritated if trying to get shoulder back. Getting dressed doesn't hurt it but can't really lift weights like she wants. Overhead lifts hurt. As far as the knee, doesn't really trust knee when she's been sitting for a while, especially crossing the leg the knee locks up. 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 Does have previous history of back pain. Prior Treatments and Tests MRI negative for shoulder, Xray of knee negative Treatment Goals Patient/Caregiver Goals Return to gym workouts Prior Functional Status Baseline Function- ADL's Independent Baseline Function- Mobility Independent Personal Factors Other Personal Factors That May Effect Lumbar pain history, active Therapy/Recovery duty PT-OP-C Subjective Start: 04/14/22 09:51 Freq: Status: Active Protocol: Document 07/24/22 13:55 AMB (Rec: 07/24/22 14:21 AMB [id number]) OP-PT Subjective Patient Comments Patient Comments Pt has been playing soccer. Is feeling there is some swelling in the back of the back of the knee. Hasn't done shoulder exercises in the last week. PT-OP-J Posture/Palpation/Skin Start: 04/14/22 09:51 Freq: Status: Active Protocol: Document 04/18/22 07:30 AMB (Rec: 04/18/22 13:01 AMB [id number]) Posture Evaluation Comments Posture Comments medial bordern of scapula wings L>R Palpation Assessment Location One Palpation Details Shoulder quite tender to palpation at the long head of the biceps origin. Otherwise no tenderness noted PT-OP-K Range of Motion Start: 04/14/22 09:51 Freq: Status: Active Protocol: Document 04/18/22 07:30 AMB (Rec: 04/18/22 13:01 AMB [id number]) Shoulder Goniometric Range of Motion Shoulder Left Active Testing Position Sitting Flexion 156 Abduction 180 Internal Rotation Behind Back (text) L3 Knee Goniometric Range of Motion Knee ROM Limitations Comments WFL bilaterally, PT-OP-L Special Tests Start: 04/14/22 09:51 Freq: Status: Active Protocol: Document 04/18/22 07:30 AMB (Rec: 04/18/22 13:01 AMB [id number]) Special Tests Knee Special Tests Ever Test Test Results - PT-OP-M Strength Start: 04/14/22 09:51 Freq: Status: Active Protocol: Document 04/18/22 07:30 AMB (Rec: 04/18/22 13:01 AMB [id number]) Shoulder Strength Shoulder Manual Muscle Testing Right Flexion 5 Normal Extension 5 Normal Abduction (C5) 5 Normal External Rotation 5 Normal Internal Rotation 5 Normal Left Flexion 4+ Good+ Extension 5 Normal Abduction (C5) 4 Good External Rotation 4 Good Internal Rotation 4+ Good+ Hip Strength Hip Manual Muscle Testing Right Flexion (L2) 4+ Good+ Extension (S1) 5 Normal Abduction 5 Normal Left Flexion (L2) 4 Good Extension (S1) 4 Good Abduction 4 Good Knee Strength Knee Manual Muscle Testing Right Flexion (S2) 5 Normal Extension (L3) 5 Normal Left Flexion (S2) 4+ Good+ Extension (L3) 4+ Good+ PT-OP-Q Treatments Start: 04/14/22 09:51 Freq: Status: Active Protocol: Document 07/24/22 13:55 AMB (Rec: 07/24/22 14:21 AMB [id number]) Therapeutic Exercises Prone Exercises prone Y Side bilateral Resistance #2 Equipment Used EX Ball Reps/Minutes 2x5 Comments good self corrections LT fac shldr flex Reps/Minutes 10, x10 1# monica Comments no pain but started to feel popping shldr horizontal abd Prone Exercise Name HEP form reviewed Side bilateral Equipment Used EX Ball Reps/Minutes 2x5 2# Comments cued arm not back beyond body and LT fac to decrease winging noted shldr ext Prone Exercise Name HEP reviewed Side bilateral Equipment Used EX Ball Reps/Minutes x10 1# monica, x10 2# B Comments good tolerance, cued head neutral ext, arms not passed Sitting Exercises biceps Sitting Exercise Name 2# Reps/Minutes 1x5; 1x5 Standing Exercises wall slide Standing Exercise Name with yellow theraband Reps/Minutes 4 Comments challenging with lift off Manual Therapy Treatment Soft Tissue Mobilization biceps Mobilization Type Myofascial Release, Oscillations,Sustained Pressure Intensity/Depth Superficial Body Position Hooklying pec minor tendon Mobilization Type Cross-Friction Intensity/Depth Moderate Comments added in gentle long head biceps, UT PT-OP-R Modalities Start: 04/14/22 09:51 Freq: Status: Active Protocol: Document 07/12/22 08:20 SP (Rec: 07/12/22 09:07 SP [id number]) Hot Pack/Cold Pack Treatment Cold Pack Location L shoulder Patient Position Hooklying Treatment Duration (minutes) 10 Patient Tolerance Good Comments cervical CP PT-OP-T Assessment and Plan Start: 04/14/22 09:51 Freq: Status: Active Protocol: Document 07/24/22 13:55 AMB (Rec: 07/24/22 14:21 AMB [id number]) Physical Therapy Assessment Goals Three Impairment Return to sport Short Term Goal (STG) Belinda will lift 20# overhead with 2/10 shoulder pain or less. STG Duration 6 weeks Two Impairment Shoulder pain Short Term Goal (STG) Talia will show at least 165 degrees of active shoulder flexion without pain. 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 LTG Duration 12 weeks One Impairment Knee pain Short Term Goal (STG) Talia will move from sit to stand without knee pain. STG Duration MET Custodial Goal (LTG) Talia will squat 40# without knee pain. LTG Duration MET Assessment Summary Assessment Pt not feeling well today. Did progress strengthening of shoulder. Encouarged in icing considering reutnr to soccer for knee and feeling of fullness in posterior knee. Physical Therapy Plan Frequency and Duration Frequency of Treatment 1x/Week Duration of treatment (weeks) 8 Plan of Care Start Date 07/06/22 Plan of Care End Date 08/31/22 Therapeutic Interventions Therapeutic Interventions Home Exercise Program,Manual Therapy,Neuromuscular Re- education,Self-Care/Home Management,Therapeutic Activities,Therapeutic Exercises Modalities Cold Pack/Ice Massage,Electric Stimulation,Hot Packs, Iontophoresis,Ultrasound Other Therapeutic Interventions iontophoresis with dexamethasone Next Visit Focus/Plan Next Note Type Treatment Note Next Visit Plan Continue Serratus Anterior strengthing. POC: neck/milton stretches, I, Y, T Hip strengthening.
--- NOTE | 2022-08-01 13:55 | PT.OTN ---
Current Diagnoses Pain in left shoulder (08/01/22) Pain in left knee (08/01/22) Physical Therapy Treatment Note PT-OP-A Visit Information Start: 04/14/22 09:51 Freq: Status: Active Protocol: Document 08/01/22 12:59 AMB (Rec: 08/01/22 13:48 AMB [id number]) Out-Patient Physical Therapy Visit Information Visit Information Visit Type Treatment Note Visit Start Time 13:00 Visit Stop Time 13:45 Total Visit Minutes 40 Visit Number 18 PT-OP-B Current Condition Start: 04/14/22 09:51 Freq: Status: Active Protocol: Document 04/18/22 07:31 AMB (Rec: 04/18/22 07:51 AMB [id number]) Current Condition History of Current Condition Onset Date Jan 2020 for the shoulder; mid 2021 knee Current Complaints L shoulder and L knee History of Current Condition Talia reports that she was doing biceps curls and suddenly had a difficult time in January 2020. L shoulder continues to tire out extremely fast. Shoulder gets irritated if trying to get shoulder back. Getting dressed doesn't hurt it but can't really lift weights like she wants. Overhead lifts hurt. As far as the knee, doesn't really trust knee when she's been sitting for a while, especially crossing the leg the knee locks up. 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 Does have previous history of back pain. Prior Treatments and Tests MRI negative for shoulder, Xray of knee negative Treatment Goals Patient/Caregiver Goals Return to gym workouts Prior Functional Status Baseline Function- ADL's Independent Baseline Function- Mobility Independent Personal Factors Other Personal Factors That May Effect Lumbar pain history, active Therapy/Recovery duty PT-OP-C Subjective Start: 04/14/22 09:51 Freq: Status: Active Protocol: Document 08/01/22 12:59 AMB (Rec: 08/01/22 13:48 AMB [id number]) OP-PT Subjective Patient Comments Patient Comments Pt reports playing soccer yesterday and it went well. PT-OP-J Posture/Palpation/Skin Start: 04/14/22 09:51 Freq: Status: Active Protocol: Document 04/18/22 07:30 AMB (Rec: 04/18/22 13:01 AMB [id number]) Posture Evaluation Comments Posture Comments medial bordern of scapula wings L>R Palpation Assessment Location One Palpation Details Shoulder quite tender to palpation at the long head of the biceps origin. Otherwise no tenderness noted PT-OP-K Range of Motion Start: 04/14/22 09:51 Freq: Status: Active Protocol: Document 04/18/22 07:30 AMB (Rec: 04/18/22 13:01 AMB [id number]) Shoulder Goniometric Range of Motion Shoulder Left Active Testing Position Sitting Flexion 156 Abduction 180 Internal Rotation Behind Back (text) L3 Knee Goniometric Range of Motion Knee ROM Limitations Comments WFL bilaterally, PT-OP-L Special Tests Start: 04/14/22 09:51 Freq: Status: Active Protocol: Document 04/18/22 07:30 AMB (Rec: 04/18/22 13:01 AMB [id number]) Special Tests Knee Special Tests Ever Test Test Results - PT-OP-M Strength Start: 04/14/22 09:51 Freq: Status: Active Protocol: Document 04/18/22 07:30 AMB (Rec: 04/18/22 13:01 AMB [id number]) Shoulder Strength Shoulder Manual Muscle Testing Right Flexion 5 Normal Extension 5 Normal Abduction (C5) 5 Normal External Rotation 5 Normal Internal Rotation 5 Normal Left Flexion 4+ Good+ Extension 5 Normal Abduction (C5) 4 Good External Rotation 4 Good Internal Rotation 4+ Good+ Hip Strength Hip Manual Muscle Testing Right Flexion (L2) 4+ Good+ Extension (S1) 5 Normal Abduction 5 Normal Left Flexion (L2) 4 Good Extension (S1) 4 Good Abduction 4 Good Knee Strength Knee Manual Muscle Testing Right Flexion (S2) 5 Normal Extension (L3) 5 Normal Left Flexion (S2) 4+ Good+ Extension (L3) 4+ Good+ PT-OP-Q Treatments Start: 04/14/22 09:51 Freq: Status: Active Protocol: Document 08/01/22 12:59 AMB (Rec: 08/01/22 13:48 AMB [id number]) Therapeutic Exercises Supine Exercises flyes Resistance 3# Reps/Minutes 8 pec stretch Supine Exercise Name over 65cm ball Sitting Exercises biceps Sitting Exercise Name 4# Reps/Minutes 10 Standing Exercises shoulder flexion Standing Exercise Name 10 Resistance 2# rows Resistance 7# Reps/Minutes 5 Comments stopped due to pain Manual Therapy Treatment Soft Tissue Mobilization biceps Mobilization Type Myofascial Release, Oscillations,Sustained Pressure Intensity/Depth Superficial Body Position Hooklying PT-OP-R Modalities Start: 04/14/22 09:51 Freq: Status: Active Protocol: Document 08/01/22 13:00 AMB (Rec: 08/01/22 13:51 AMB [id number]) Hot Pack/Cold Pack Treatment Ice Massage Location L shoulder Patient Position Supine Treatment Duration (minutes) 5 Patient Tolerance Good PT-OP-T Assessment and Plan Start: 04/14/22 09:51 Freq: Status: Active Protocol: Document 08/01/22 12:59 AMB (Rec: 08/01/22 13:48 AMB [id number]) Physical Therapy Assessment Goals Three Impairment Return to sport Short Term Goal (STG) Belinda will lift 20# overhead with 2/10 shoulder pain or less. STG Duration 6 weeks Two Impairment Shoulder pain Short Term Goal (STG) Talia will show at least 165 degrees of active shoulder flexion without pain. STG Duration 6 weeks Penitentiary Goal (LTG) Talia will have 0/10 shoulder pain with twisting activities at work as a boat mechanic. LTG Duration 12 weeks One Impairment Knee pain Short Term Goal (STG) Talia will move from sit to stand without knee pain. STG Duration MET Dtp Operator Goal (LTG) Talia will squat 40# without knee pain. LTG Duration MET Assessment Summary Assessment Pt doing better today, did feel sharp pain in anterior shoulder with rows (7#) but afterwards did well. Encouraged pt in gentle progression of biceps progression. Physical Therapy Plan Frequency and Duration Frequency of Treatment 1x/Week Duration of treatment (weeks) 8 Plan of Care Start Date 07/06/22 Plan of Care End Date 08/31/22 Therapeutic Interventions Therapeutic Interventions Home Exercise Program,Manual Therapy,Neuromuscular Re- education,Self-Care/Home Management,Therapeutic Activities,Therapeutic Exercises Modalities Cold Pack/Ice Massage,Electric Stimulation,Hot Packs, Iontophoresis,Ultrasound Other Therapeutic Interventions iontophoresis with dexamethasone Next Visit Focus/Plan Next Note Type Treatment Note Next Visit Plan Continue Serratus Anterior strengthing. Establicsh biceps strengthening. POC: neck/milton stretches, I, Y, T Hip strengthening.
--- NOTE | 2022-08-06 09:05 | PT.OTN ---
Current Diagnoses Pain in left shoulder (08/06/22) Pain in left knee (08/06/22) Physical Therapy Treatment Note PT-OP-A Visit Information Start: 04/14/22 09:51 Freq: Status: Active Protocol: Document 08/06/22 08:29 AMB (Rec: 08/06/22 09:05 AMB [id number]) Out-Patient Physical Therapy Visit Information Visit Information Visit Type Treatment Note Visit Note pt arrived late Visit Start Time 08:30 Visit Stop Time 09:00 Total Visit Minutes 30 Visit Number 19 PT-OP-B Current Condition Start: 04/14/22 09:51 Freq: Status: Active Protocol: Document 04/18/22 07:31 AMB (Rec: 04/18/22 07:51 AMB [id number]) Current Condition History of Current Condition Onset Date Jan 2020 for the shoulder; mid 2021 knee Current Complaints L shoulder and L knee History of Current Condition Talia reports that she was doing biceps curls and suddenly had a difficult time in January 2020. L shoulder continues to tire out extremely fast. Shoulder gets irritated if trying to get shoulder back. Getting dressed doesn't hurt it but can't really lift weights like she wants. Overhead lifts hurt. As far as the knee, doesn't really trust knee when she's been sitting for a while, especially crossing the leg the knee locks up. 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 Does have previous history of back pain. Prior Treatments and Tests MRI negative for shoulder, Xray of knee negative Treatment Goals Patient/Caregiver Goals Return to gym workouts Prior Functional Status Baseline Function- ADL's Independent Baseline Function- Mobility Independent Personal Factors Other Personal Factors That May Effect Lumbar pain history, active Therapy/Recovery duty PT-OP-C Subjective Start: 04/14/22 09:51 Freq: Status: Active Protocol: Document 08/06/22 08:29 AMB (Rec: 08/06/22 09:05 AMB [id number]) OP-PT Subjective Patient Comments Patient Comments Pt reports soreness in shoulder for the rest of the day after last visit. PT-OP-J Posture/Palpation/Skin Start: 04/14/22 09:51 Freq: Status: Active Protocol: Document 04/18/22 07:30 AMB (Rec: 04/18/22 13:01 AMB [id number]) Posture Evaluation Comments Posture Comments medial bordern of scapula wings L>R Palpation Assessment Location One Palpation Details Shoulder quite tender to palpation at the long head of the biceps origin. Otherwise no tenderness noted PT-OP-K Range of Motion Start: 04/14/22 09:51 Freq: Status: Active Protocol: Document 04/18/22 07:30 AMB (Rec: 04/18/22 13:01 AMB [id number]) Shoulder Goniometric Range of Motion Shoulder Left Active Testing Position Sitting Flexion 156 Abduction 180 Internal Rotation Behind Back (text) L3 Knee Goniometric Range of Motion Knee ROM Limitations Comments WFL bilaterally, PT-OP-L Special Tests Start: 04/14/22 09:51 Freq: Status: Active Protocol: Document 04/18/22 07:30 AMB (Rec: 04/18/22 13:01 AMB [id number]) Special Tests Knee Special Tests Ever Test Test Results - PT-OP-M Strength Start: 04/14/22 09:51 Freq: Status: Active Protocol: Document 04/18/22 07:30 AMB (Rec: 04/18/22 13:01 AMB [id number]) Shoulder Strength Shoulder Manual Muscle Testing Right Flexion 5 Normal Extension 5 Normal Abduction (C5) 5 Normal External Rotation 5 Normal Internal Rotation 5 Normal Left Flexion 4+ Good+ Extension 5 Normal Abduction (C5) 4 Good External Rotation 4 Good Internal Rotation 4+ Good+ Hip Strength Hip Manual Muscle Testing Right Flexion (L2) 4+ Good+ Extension (S1) 5 Normal Abduction 5 Normal Left Flexion (L2) 4 Good Extension (S1) 4 Good Abduction 4 Good Knee Strength Knee Manual Muscle Testing Right Flexion (S2) 5 Normal Extension (L3) 5 Normal Left Flexion (S2) 4+ Good+ Extension (L3) 4+ Good+ PT-OP-Q Treatments Start: 04/14/22 09:51 Freq: Status: Active Protocol: Document 08/06/22 08:29 AMB (Rec: 08/06/22 09:05 AMB [id number]) Therapeutic Exercises Sitting Exercises biceps Sitting Exercise Name 4# Reps/Minutes 10 Standing Exercises plinth plank Standing Exercise Name raised high Reps/Minutes 30x2 Comments pressure, but ok shoulder abduction Resistance 4# Reps/Minutes 2x10 UT stretch Reps/Minutes 3x30 rows Resistance 7# Reps/Minutes 5 Comments stopped due to pain pec stretch Standing Exercise Name varying angles Side left Reps/Minutes 1 minx 3 Comments doorway, monica>Left only Manual Therapy Treatment Soft Tissue Mobilization biceps Mobilization Type Myofascial Release, Oscillations,Sustained Pressure Intensity/Depth Superficial Body Position Hooklying Comments and UT today PT-OP-R Modalities Start: 04/14/22 09:51 Freq: Status: Active Protocol: Document 08/01/22 13:00 AMB (Rec: 08/01/22 13:51 AMB [id number]) Hot Pack/Cold Pack Treatment Ice Massage Location L shoulder Patient Position Supine Treatment Duration (minutes) 5 Patient Tolerance Good PT-OP-T Assessment and Plan Start: 04/14/22 09:51 Freq: Status: Active Protocol: Document 08/06/22 08:29 AMB (Rec: 08/06/22 09:05 AMB [id number]) Physical Therapy Assessment Goals Three Impairment Return to sport Short Term Goal (STG) Belinda will lift 20# overhead with 2/10 shoulder pain or less. STG Duration 6 weeks Two Impairment Shoulder pain Short Term Goal (STG) Talia will show at least 165 degrees of active shoulder flexion without pain. 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 LTG Duration 12 weeks One Impairment Knee pain Short Term Goal (STG) Talia will move from sit to stand without knee pain. STG Duration MET Yard Manager Goal (LTG) Talia will squat 40# without knee pain. LTG Duration MET Assessment Summary Assessment Pt tolerating more lifting, still encouraged to be very careful with progression. Encouraged in gentle progression with biceps strengthening and working into planks and push ups for [place] test. Physical Therapy Plan Frequency and Duration Frequency of Treatment 1x/Week Duration of treatment (weeks) 8 Plan of Care Start Date 07/06/22 Plan of Care End Date 08/31/22 Therapeutic Interventions Therapeutic Interventions Home Exercise Program,Manual Therapy,Neuromuscular Re- education,Self-Care/Home Management,Therapeutic Activities,Therapeutic Exercises Modalities Cold Pack/Ice Massage,Electric Stimulation,Hot Packs, Iontophoresis,Ultrasound Other Therapeutic Interventions iontophoresis with dexamethasone Next Visit Focus/Plan Next Note Type Treatment Note Next Visit Plan Continue Serratus Anterior strengthing. Establicsh biceps strengthening. POC: neck/milton stretches, I, Y, T Hip strengthening.
--- NOTE | 2022-08-13 09:03 | PT.OTN ---
Current Diagnoses Pain in left shoulder (08/13/22) Pain in left knee (08/13/22) Physical Therapy Treatment Note PT-OP-A Visit Information Start: 04/14/22 09:51 Freq: Status: Active Protocol: Document 08/13/22 08:21 AMB (Rec: 08/13/22 09:02 AMB [id number]) Out-Patient Physical Therapy Visit Information Visit Information Visit Type Treatment Note Visit Start Time 08:30 Visit Stop Time 09:00 Total Visit Minutes 30 Visit Number 20 PT-OP-B Current Condition Start: 04/14/22 09:51 Freq: Status: Active Protocol: Document 04/18/22 07:31 AMB (Rec: 04/18/22 07:51 AMB [id number]) Current Condition History of Current Condition Onset Date Jan 2020 for the shoulder; mid 2021 knee Current Complaints L shoulder and L knee History of Current Condition Talia reports that she was doing biceps curls and suddenly had a difficult time in January 2020. L shoulder continues to tire out extremely fast. Shoulder gets irritated if trying to get shoulder back. Getting dressed doesn't hurt it but can't really lift weights like she wants. Overhead lifts hurt. As far as the knee, doesn't really trust knee when she's been sitting for a while, especially crossing the leg the knee locks up. 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 Does have previous history of back pain. Prior Treatments and Tests MRI negative for shoulder, Xray of knee negative Treatment Goals Patient/Caregiver Goals Return to gym workouts Prior Functional Status Baseline Function- ADL's Independent Baseline Function- Mobility Independent Personal Factors Other Personal Factors That May Effect Lumbar pain history, active Therapy/Recovery duty PT-OP-C Subjective Start: 04/14/22 09:51 Freq: Status: Active Protocol: Document 08/13/22 08:21 AMB (Rec: 08/13/22 09:02 AMB [id number]) OP-PT Subjective Patient Comments Patient Comments Pt reports increased pain in shoulder after doing lunges with a bar over her shoulders, but now feels like it has recovered. PT-OP-J Posture/Palpation/Skin Start: 04/14/22 09:51 Freq: Status: Active Protocol: Document 04/18/22 07:30 AMB (Rec: 04/18/22 13:01 AMB [id number]) Posture Evaluation Comments Posture Comments medial bordern of scapula wings L>R Palpation Assessment Location One Palpation Details Shoulder quite tender to palpation at the long head of the biceps origin. Otherwise no tenderness noted PT-OP-K Range of Motion Start: 04/14/22 09:51 Freq: Status: Active Protocol: Document 04/18/22 07:30 AMB (Rec: 04/18/22 13:01 AMB [id number]) Shoulder Goniometric Range of Motion Shoulder Left Active Testing Position Sitting Flexion 156 Abduction 180 Internal Rotation Behind Back (text) L3 Knee Goniometric Range of Motion Knee ROM Limitations Comments WFL bilaterally, PT-OP-L Special Tests Start: 04/14/22 09:51 Freq: Status: Active Protocol: Document 04/18/22 07:30 AMB (Rec: 04/18/22 13:01 AMB [id number]) Special Tests Knee Special Tests Ever Test Test Results - PT-OP-M Strength Start: 04/14/22 09:51 Freq: Status: Active Protocol: Document 04/18/22 07:30 AMB (Rec: 04/18/22 13:01 AMB [id number]) Shoulder Strength Shoulder Manual Muscle Testing Right Flexion 5 Normal Extension 5 Normal Abduction (C5) 5 Normal External Rotation 5 Normal Internal Rotation 5 Normal Left Flexion 4+ Good+ Extension 5 Normal Abduction (C5) 4 Good External Rotation 4 Good Internal Rotation 4+ Good+ Hip Strength Hip Manual Muscle Testing Right Flexion (L2) 4+ Good+ Extension (S1) 5 Normal Abduction 5 Normal Left Flexion (L2) 4 Good Extension (S1) 4 Good Abduction 4 Good Knee Strength Knee Manual Muscle Testing Right Flexion (S2) 5 Normal Extension (L3) 5 Normal Left Flexion (S2) 4+ Good+ Extension (L3) 4+ Good+ PT-OP-Q Treatments Start: 04/14/22 09:51 Freq: Status: Active Protocol: Document 08/13/22 08:21 AMB (Rec: 08/13/22 09:02 AMB [id number]) Therapeutic Exercises Sitting Exercises biceps Sitting Exercise Name 4# Reps/Minutes 2x10 Standing Exercises rows Resistance 7# Reps/Minutes 2x10 Manual Therapy Treatment Soft Tissue Mobilization biceps Mobilization Type Myofascial Release, Oscillations,Sustained Pressure Intensity/Depth Superficial Body Position Hooklying Comments and UT today pec minor tendon Mobilization Type Cross-Friction Intensity/Depth Moderate Comments added in gentle long head biceps, UT PT-OP-R Modalities Start: 04/14/22 09:51 Freq: Status: Active Protocol: Document 08/01/22 13:00 AMB (Rec: 08/01/22 13:51 AMB [id number]) Hot Pack/Cold Pack Treatment Ice Massage Location L shoulder Patient Position Supine Treatment Duration (minutes) 5 Patient Tolerance Good PT-OP-T Assessment and Plan Start: 04/14/22 09:51 Freq: Status: Active Protocol: Document 08/13/22 08:21 AMB (Rec: 08/13/22 09:02 AMB [id number]) Physical Therapy Assessment Goals Three Impairment Return to sport Short Term Goal (STG) Belinda will lift 20# overhead with 2/10 shoulder pain or less. STG Duration 6 weeks Two Impairment Shoulder pain Short Term Goal (STG) Talia will show at least 165 degrees of active shoulder flexion without pain. 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 LTG Duration 12 weeks One Impairment Knee pain Short Term Goal (STG) Talia will move from sit to stand without knee pain. STG Duration MET Jail Goal (LTG) Talia will squat 40# without knee pain. LTG Duration MET Assessment Summary Assessment Pt's pec more sore today than biceps today. Tolerating mroe reps without pain, is having some popliteal pain consider mcgregor's cyst. Physical Therapy Plan Frequency and Duration Frequency of Treatment 1x/Week Duration of treatment (weeks) 8 Plan of Care Start Date 07/06/22 Plan of Care End Date 08/31/22 Therapeutic Interventions Therapeutic Interventions Home Exercise Program,Manual Therapy,Neuromuscular Re- education,Self-Care/Home Management,Therapeutic Activities,Therapeutic Exercises Modalities Cold Pack/Ice Massage,Electric Stimulation,Hot Packs, Iontophoresis,Ultrasound Other Therapeutic Interventions iontophoresis with dexamethasone Next Visit Focus/Plan Next Note Type Treatment Note Next Visit Plan Continue Serratus Anterior strengthing. Establicsh biceps strengthening. POC: neck/milton stretches, I, Y, T Hip strengthening.
--- NOTE | 2022-08-21 08:15 | PT.OTN ---
Current Diagnoses Pain in left shoulder (08/21/22) Pain in left knee (08/21/22) Physical Therapy Treatment Note PT-OP-A Visit Information Start: 04/14/22 09:51 Freq: Status: Active Protocol: Document 08/21/22 07:30 SP (Rec: 08/21/22 08:17 SP [id number]) Out-Patient Physical Therapy Visit Information Visit Information Visit Type Treatment Note Visit Start Time 07:30 Visit Stop Time 08:15 Total Visit Minutes 45 Visit Number 21 Number of BAIT MAN Visits 1 PT-OP-B Current Condition Start: 04/14/22 09:51 Freq: Status: Active Protocol: Document 04/18/22 07:31 AMB (Rec: 04/18/22 07:51 AMB [id number]) Current Condition History of Current Condition Onset Date Jan 2020 for the shoulder; mid 2021 knee Current Complaints L shoulder and L knee History of Current Condition Talia reports that she was doing biceps curls and suddenly had a difficult time in January 2020. L shoulder continues to tire out extremely fast. Shoulder gets irritated if trying to get shoulder back. Getting dressed doesn't hurt it but can't really lift weights like she wants. Overhead lifts hurt. As far as the knee, doesn't really trust knee when she's been sitting for a while, especially crossing the leg the knee locks up. 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 Does have previous history of back pain. Prior Treatments and Tests MRI negative for shoulder, Xray of knee negative Treatment Goals Patient/Caregiver Goals Return to gym workouts Prior Functional Status Baseline Function- ADL's Independent Baseline Function- Mobility Independent Personal Factors Other Personal Factors That May Effect Lumbar pain history, active Therapy/Recovery duty PT-OP-C Subjective Start: 04/14/22 09:51 Freq: Status: Active Protocol: Document 08/21/22 07:30 SP (Rec: 08/21/22 08:17 SP [id number]) OP-PT Subjective Patient Comments Patient Comments Pt reports not feel strong enough to perform plank, pushup durign PRT, will be asking for a waiver but can run the portion. She feels getting stronger but not ready to return to gym full program wants more progression guidence. Not doing any lifting at work at this time, more paperwork. PT-OP-J Posture/Palpation/Skin Start: 04/14/22 09:51 Freq: Status: Active Protocol: Document 04/18/22 07:30 AMB (Rec: 04/18/22 13:01 AMB [id number]) Posture Evaluation Comments Posture Comments medial bordern of scapula wings L>R Palpation Assessment Location One Palpation Details Shoulder quite tender to palpation at the long head of the biceps origin. Otherwise no tenderness noted PT-OP-K Range of Motion Start: 04/14/22 09:51 Freq: Status: Active Protocol: Document 04/18/22 07:30 AMB (Rec: 04/18/22 13:01 AMB [id number]) Shoulder Goniometric Range of Motion Shoulder Left Active Testing Position Sitting Flexion 156 Abduction 180 Internal Rotation Behind Back (text) L3 Knee Goniometric Range of Motion Knee ROM Limitations Comments WFL bilaterally, PT-OP-L Special Tests Start: 04/14/22 09:51 Freq: Status: Active Protocol: Document 04/18/22 07:30 AMB (Rec: 04/18/22 13:01 AMB [id number]) Special Tests Knee Special Tests Ever Test Test Results - PT-OP-M Strength Start: 04/14/22 09:51 Freq: Status: Active Protocol: Document 04/18/22 07:30 AMB (Rec: 04/18/22 13:01 AMB [id number]) Shoulder Strength Shoulder Manual Muscle Testing Right Flexion 5 Normal Extension 5 Normal Abduction (C5) 5 Normal External Rotation 5 Normal Internal Rotation 5 Normal Left Flexion 4+ Good+ Extension 5 Normal Abduction (C5) 4 Good External Rotation 4 Good Internal Rotation 4+ Good+ Hip Strength Hip Manual Muscle Testing Right Flexion (L2) 4+ Good+ Extension (S1) 5 Normal Abduction 5 Normal Left Flexion (L2) 4 Good Extension (S1) 4 Good Abduction 4 Good Knee Strength Knee Manual Muscle Testing Right Flexion (S2) 5 Normal Extension (L3) 5 Normal Left Flexion (S2) 4+ Good+ Extension (L3) 4+ Good+ PT-OP-Q Treatments Start: 04/14/22 09:51 Freq: Status: Active Protocol: Document 08/21/22 07:30 SP (Rec: 08/21/22 08:17 SP [id number]) Gym Equipment Cable Column (Body Solid) Lat Pull Down Details 30# Reps/Time 2x10- manual between sets Therapeutic Exercises Prone Exercises plank Prone Exercise Name elbow/feet Comments alot fatigue- cued SA press, core/glut fac 52 sec- needs able 2.5 min PRT Sitting Exercises biceps Sitting Exercise Name 4# Reps/Minutes 2x10 Standing Exercises OH press Standing Exercise Name Place on shelf motion OH (PVC rack) Side left Resistance 10# DB Reps/Minutes 2x5 Comments self scap stab reported to complete, tiring painfree shoulder abduction Standing Exercise Name D2 flexion, ABD Side left Resistance peach TB Reps/Minutes 2x10 Comments tiring more than notice slight discomfort anterior L shld rows Resistance 7# bent over rows Robles, single 9# bench x10 Equipment Used single 9# x10, 10# x8 reps before tires Reps/Minutes 2x10 Comments painfree, tiring Manual Therapy Treatment Soft Tissue Mobilization UT/ LS Body Location L Mobilization Type Strumming,Sustained Pressure, Other Comments manual strum and MWM shld strugs biceps Body Location L proximal long head Mobilization Type Myofascial Release, Oscillations,Sustained Pressure Intensity/Depth Moderate Body Position Hooklying Comments manual brief then self ball corner of wall pec minor tendon Body Location L Mobilization Type Cross-Friction Intensity/Depth Moderate Comments manual brief then self ball corner of wall PT-OP-R Modalities Start: 04/14/22 09:51 Freq: Status: Active Protocol: Document 08/01/22 13:00 AMB (Rec: 08/01/22 13:51 AMB [id number]) Hot Pack/Cold Pack Treatment Ice Massage Location L shoulder Patient Position Supine Treatment Duration (minutes) 5 Patient Tolerance Good PT-OP-T Assessment and Plan Start: 04/14/22 09:51 Freq: Status: Active Protocol: Document 08/21/22 07:30 SP (Rec: 08/21/22 08:17 SP [id number]) Physical Therapy Assessment Goals Three Impairment Return to sport Short Term Goal (STG) Belinda will lift 20# overhead with 2/10 shoulder pain or less. 08/21/22: Doesn't lift items at work heavy that doesn't feel can do. She did lift/press 60# bar dawson to chest and over behind head and shld was sore and numbness. 1-# DB tiring 2x5 reps STG Duration 6 weeks progressing Two Impairment Shoulder pain Short Term Goal (STG) Talia will show at least 165 degrees of active shoulder flexion without pain. 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 08/21/22: doesn't do this motions at work at this time. Need to assess for future. LTG Duration 12 weeks One Impairment Knee pain Short Term Goal (STG) Talia will move from sit to stand without knee pain. STG Duration MET Town [employer] Goal (LTG) Talia will squat 40# without knee pain. LTG Duration MET Assessment Summary Assessment Pt good effort during ther ex, more fatigued, occasional cues for scap SA fac and no UT during pull downs eccentric directioning, improved scapular ROM post manual STMs 2nd set. Physical Therapy Plan Frequency and Duration Frequency of Treatment 1x/Week Duration of treatment (weeks) 8 Plan of Care Start Date 07/06/22 Plan of Care End Date 08/31/22 Therapeutic Interventions Therapeutic Interventions Home Exercise Program,Manual Therapy,Neuromuscular Re- education,Self-Care/Home Management,Therapeutic Activities,Therapeutic Exercises Modalities Cold Pack/Ice Massage,Electric Stimulation,Hot Packs, Iontophoresis,Ultrasound Other Therapeutic Interventions iontophoresis with dexamethasone Next Visit Focus/Plan Next Note Type Treatment Note Next Visit Plan Continue Serratus Anterior strengthing: add body blade, progress elbow plank timing. Establicsh biceps strengthening. POC: neck/milton stretches, I, Y, T Hip strengthening.
--- NOTE | 2022-08-29 08:07 | PT.OTN ---
Current Diagnoses Pain in left shoulder (08/29/22) Pain in left knee (08/29/22) Physical Therapy Treatment Note PT-OP-A Visit Information Start: 04/14/22 09:51 Freq: Status: Active Protocol: Document 08/29/22 07:35 AMB (Rec: 08/29/22 08:14 AMB [id number]) Out-Patient Physical Therapy Visit Information Visit Information Visit Type Progress Note Visit Start Time 07:30 Visit Stop Time 08:15 Total Visit Minutes 45 Visit Number 22 PT-OP-B Current Condition Start: 04/14/22 09:51 Freq: Status: Active Protocol: Document 04/18/22 07:31 AMB (Rec: 04/18/22 07:51 AMB [id number]) Current Condition History of Current Condition Onset Date Jan 2020 for the shoulder; mid 2021 knee Current Complaints L shoulder and L knee History of Current Condition Talia reports that she was doing biceps curls and suddenly had a difficult time in January 2020. L shoulder continues to tire out extremely fast. Shoulder gets irritated if trying to get shoulder back. Getting dressed doesn't hurt it but can't really lift weights like she wants. Overhead lifts hurt. As far as the knee, doesn't really trust knee when she's been sitting for a while, especially crossing the leg the knee locks up. 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 Does have previous history of back pain. Prior Treatments and Tests MRI negative for shoulder, Xray of knee negative Treatment Goals Patient/Caregiver Goals Return to gym workouts Prior Functional Status Baseline Function- ADL's Independent Baseline Function- Mobility Independent Personal Factors Other Personal Factors That May Effect Lumbar pain history, active Therapy/Recovery duty PT-OP-C Subjective Start: 04/14/22 09:51 Freq: Status: Active Protocol: Document 08/21/22 07:30 SP (Rec: 08/21/22 08:17 SP [id number]) OP-PT Subjective Patient Comments Patient Comments Pt reports not feel strong enough to perform plank, pushup durign PRT, will be asking for a waiver but can run the portion. She feels getting stronger but not ready to return to gym full program wants more progression guidence. Not doing any lifting at work at this time, more paperwork. PT-OP-J Posture/Palpation/Skin Start: 04/14/22 09:51 Freq: Status: Active Protocol: Document 04/18/22 07:30 AMB (Rec: 04/18/22 13:01 AMB [id number]) Posture Evaluation Comments Posture Comments medial bordern of scapula wings L>R Palpation Assessment Location One Palpation Details Shoulder quite tender to palpation at the long head of the biceps origin. Otherwise no tenderness noted PT-OP-K Range of Motion Start: 04/14/22 09:51 Freq: Status: Active Protocol: Document 04/18/22 07:30 AMB (Rec: 04/18/22 13:01 AMB [id number]) Shoulder Goniometric Range of Motion Shoulder Left Active Testing Position Sitting Flexion 156 Abduction 180 Internal Rotation Behind Back (text) L3 Knee Goniometric Range of Motion Knee ROM Limitations Comments WFL bilaterally, PT-OP-L Special Tests Start: 04/14/22 09:51 Freq: Status: Active Protocol: Document 04/18/22 07:30 AMB (Rec: 04/18/22 13:01 AMB [id number]) Special Tests Knee Special Tests Ever Test Test Results - PT-OP-M Strength Start: 04/14/22 09:51 Freq: Status: Active Protocol: Document 04/18/22 07:30 AMB (Rec: 04/18/22 13:01 AMB [id number]) Shoulder Strength Shoulder Manual Muscle Testing Right Flexion 5 Normal Extension 5 Normal Abduction (C5) 5 Normal External Rotation 5 Normal Internal Rotation 5 Normal Left Flexion 4+ Good+ Extension 5 Normal Abduction (C5) 4 Good External Rotation 4 Good Internal Rotation 4+ Good+ Hip Strength Hip Manual Muscle Testing Right Flexion (L2) 4+ Good+ Extension (S1) 5 Normal Abduction 5 Normal Left Flexion (L2) 4 Good Extension (S1) 4 Good Abduction 4 Good Knee Strength Knee Manual Muscle Testing Right Flexion (S2) 5 Normal Extension (L3) 5 Normal Left Flexion (S2) 4+ Good+ Extension (L3) 4+ Good+ PT-OP-Q Treatments Start: 04/14/22 09:51 Freq: Status: Active Protocol: Document 08/29/22 07:35 AMB (Rec: 08/29/22 08:14 AMB [id number]) Gym Equipment Cable Column (Body Solid) Lat Pull Down Details 30# Reps/Time 3x10- manual between sets Therapeutic Exercises Prone Exercises plank Prone Exercise Name elbow/feet Comments alot fatigue- cued SA press, core/glut fac 52 sec- needs able 2.5 min PRT Sitting Exercises biceps Sitting Exercise Name 4# Reps/Minutes 2x10 Standing Exercises OH press Standing Exercise Name Place on shelf motion OH (PVC rack) Side left Resistance 10# DB Reps/Minutes 2x5 Comments self scap stab reported to complete, tiring painfree shoulder abduction Standing Exercise Name D2 flexion, ABD Side left Resistance blue TB Reps/Minutes 2x5 Comments tiring more than notice slight discomfort anterior L shld rows Resistance single 9# bench 2x10 Reps/Minutes 2x10 Comments painfree, tiring Manual Therapy Treatment Soft Tissue Mobilization biceps Body Location L proximal long head Mobilization Type Myofascial Release, Oscillations,Sustained Pressure Intensity/Depth Moderate Body Position Hooklying Comments manual brief then self ball corner of wall pec minor tendon Body Location L Mobilization Type Cross-Friction Intensity/Depth Moderate Comments manual brief then self ball corner of wall PT-OP-R Modalities Start: 04/14/22 09:51 Freq: Status: Active Protocol: Document 08/01/22 13:00 AMB (Rec: 08/01/22 13:51 AMB [id number]) Hot Pack/Cold Pack Treatment Ice Massage Location L shoulder Patient Position Supine Treatment Duration (minutes) 5 Patient Tolerance Good PT-OP-T Assessment and Plan Start: 04/14/22 09:51 Freq: Status: Active Protocol: Document 08/29/22 07:35 AMB (Rec: 08/29/22 08:14 AMB [id number]) Physical Therapy Assessment Goals Three Impairment Return to sport Short Term Goal (STG) Belinda will lift 20# overhead with 2/10 shoulder pain or less. 08/21/22: Doesn't lift items at work heavy that doesn't feel can do. She did lift/press 60# bar dawson to chest and over behind head and shld was sore and numbness. 1-# DB tiring 2x5 reps STG Duration 6 weeks progressing Two Impairment Shoulder pain Short Term Goal (STG) Talia will show at least 165 degrees of active shoulder flexion without pain. 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 08/21/22: doesn't do this motions at work at this time. LTG Duration 12 weeks One Impairment Knee pain Short Term Goal (STG) Talia will move from sit to stand without knee pain. STG Duration MET Correction Goal (LTG) Talia will squat 40# without knee pain. LTG Duration MET Assessment Summary Assessment Talia is progressing well. We have returned to some overhead weightlifting without pain. We have kept the weights low for now. She does fatigue quickly. Still concerned about long planks and a high number of pushups and that would likely flare her shoulder back up. She will benefit from continued physical therapy to help her regain strength without flaring her pain, she has been hesitant to return to upper body strengthening at the gym as she is worried she will go too hard. We will work on increasing tolerance to strengthening so that she is at a point where she can return to gym lifting. Physical Therapy Plan Frequency and Duration Frequency of Treatment 1x/Week Duration of treatment (weeks) 8 Plan of Care Start Date 08/29/22 Plan of Care End Date 10/24/22 Therapeutic Interventions Therapeutic Interventions Home Exercise Program,Manual Therapy,Neuromuscular Re- education,Self-Care/Home Management,Therapeutic Activities,Therapeutic Exercises Modalities Cold Pack/Ice Massage,Electric Stimulation,Hot Packs, Iontophoresis,Ultrasound Other Therapeutic Interventions iontophoresis with dexamethasone Next Visit Focus/Plan Next Note Type Treatment Note Next Visit Plan Progress overhead, biceps strengthening.
--- NOTE | 2022-08-29 08:07 | PT.OPPOC ---
Physical, Occupational & Speech Therapy At [facility] Current Diagnoses Pain in left shoulder (08/29/22) Pain in left knee (08/29/22) Visit Care Team Role Provider Type Nayan Milner DO Attending Provider Non-Staff Family Provider Primary Care Provider Referring Provider Specialty: Family Practice Address: [address] [place] [address], [id number] Email: Plan Of Care PT-OP-T Assessment and Plan Start: 04/14/22 09:51 Freq: Status: Active Protocol: Document 08/29/22 07:35 AMB (Rec: 08/29/22 08:14 AMB [id number]) Physical Therapy Assessment Goals Three Impairment Return to sport Short Term Goal (STG) Belinda will lift 20# overhead with 2/10 shoulder pain or less. 08/21/22: Doesn't lift items at work heavy that doesn't feel can do. She did lift/press 60# bar dawson to chest and over behind head and shld was sore and numbness. 1-# DB tiring 2x5 reps STG Duration 6 weeks progressing Two Impairment Shoulder pain Short Term Goal (STG) Talia will show at least 165 degrees of active shoulder flexion without pain. 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 08/21/22: doesn't do this motions at work at this time. LTG Duration 12 weeks One Impairment Knee pain Short Term Goal (STG) Talia will move from sit to stand without knee pain. STG Duration MET Reconciliation Machine Operator Goal (LTG) Talia will squat 40# without knee pain. LTG Duration MET Assessment Summary Assessment Talia is progressing well. We have returned to some overhead weightlifting without pain. We have kept the weights low for now. She does fatigue quickly. Still concerned about long planks and a high number of pushups and that would likely flare her shoulder back up. She will benefit from continued physical therapy to help her regain strength without flaring her pain, she has been hesitant to return to upper body strengthening at the gym as she is worried she will go too hard. We will work on increasing tolerance to strengthening so that she is at a point where she can return to gym lifting. Physical Therapy Plan Frequency and Duration Frequency of Treatment 1x/Week Duration of treatment (weeks) 8 Plan of Care Start Date 08/29/22 Plan of Care End Date 10/24/22 Therapeutic Interventions Therapeutic Interventions Home Exercise Program,Manual Therapy,Neuromuscular Re- education,Self-Care/Home Management,Therapeutic Activities,Therapeutic Exercises Modalities Cold Pack/Ice Massage,Electric Stimulation,Hot Packs, Iontophoresis,Ultrasound Other Therapeutic Interventions iontophoresis with dexamethasone Next Visit Focus/Plan Next Note Type Treatment Note Next Visit Plan Progress overhead, biceps strengthening. Plan of Care Dates Plan of Care Start Date 08/29/22 Plan of Care End Date 10/24/22 Electronically Signed by: Tameka Ortiz, PT 08/31/22 0807 If you are in agreement with this Plan of Care, please return a signed and dated copy. I have reviewed this Plan of Care and certify that the skilled therapy services above are required to meet the patient?s needs. Physician Signature Date Printed Name and Credentials Clinical Instructor Signature Printed Name and Credentials
--- NOTE | 2022-09-05 08:16 | PT.OTN ---
Current Diagnoses Pain in left shoulder (09/05/22) Pain in left knee (09/05/22) Physical Therapy Treatment Note PT-OP-A Visit Information Start: 04/14/22 09:51 Freq: Status: Active Protocol: Document 09/05/22 07:34 AMB (Rec: 09/05/22 08:16 AMB [id number]) Out-Patient Physical Therapy Visit Information Visit Information Visit Type Treatment Note Visit Start Time 07:30 Visit Stop Time 08:15 Total Visit Minutes 45 Visit Number 23 PT-OP-B Current Condition Start: 04/14/22 09:51 Freq: Status: Active Protocol: Document 04/18/22 07:31 AMB (Rec: 04/18/22 07:51 AMB [id number]) Current Condition History of Current Condition Onset Date Jan 2020 for the shoulder; mid 2021 knee Current Complaints L shoulder and L knee History of Current Condition Talia reports that she was doing biceps curls and suddenly had a difficult time in January 2020. L shoulder continues to tire out extremely fast. Shoulder gets irritated if trying to get shoulder back. Getting dressed doesn't hurt it but can't really lift weights like she wants. Overhead lifts hurt. As far as the knee, doesn't really trust knee when she's been sitting for a while, especially crossing the leg the knee locks up. 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 Does have previous history of back pain. Prior Treatments and Tests MRI negative for shoulder, Xray of knee negative Treatment Goals Patient/Caregiver Goals Return to gym workouts Prior Functional Status Baseline Function- ADL's Independent Baseline Function- Mobility Independent Personal Factors Other Personal Factors That May Effect Lumbar pain history, active Therapy/Recovery duty PT-OP-C Subjective Start: 04/14/22 09:51 Freq: Status: Active Protocol: Document 09/05/22 07:34 AMB (Rec: 09/05/22 08:16 AMB [id number]) OP-PT Subjective Patient Comments Patient Comments Pt reports shoulder fatigued but not painful PT-OP-J Posture/Palpation/Skin Start: 04/14/22 09:51 Freq: Status: Active Protocol: Document 04/18/22 07:30 AMB (Rec: 04/18/22 13:01 AMB [id number]) Posture Evaluation Comments Posture Comments medial bordern of scapula wings L>R Palpation Assessment Location One Palpation Details Shoulder quite tender to palpation at the long head of the biceps origin. Otherwise no tenderness noted PT-OP-K Range of Motion Start: 04/14/22 09:51 Freq: Status: Active Protocol: Document 04/18/22 07:30 AMB (Rec: 04/18/22 13:01 AMB [id number]) Shoulder Goniometric Range of Motion Shoulder Left Active Testing Position Sitting Flexion 156 Abduction 180 Internal Rotation Behind Back (text) L3 Knee Goniometric Range of Motion Knee ROM Limitations Comments WFL bilaterally, PT-OP-L Special Tests Start: 04/14/22 09:51 Freq: Status: Active Protocol: Document 04/18/22 07:30 AMB (Rec: 04/18/22 13:01 AMB [id number]) Special Tests Knee Special Tests Ever Test Test Results - PT-OP-M Strength Start: 04/14/22 09:51 Freq: Status: Active Protocol: Document 04/18/22 07:30 AMB (Rec: 04/18/22 13:01 AMB [id number]) Shoulder Strength Shoulder Manual Muscle Testing Right Flexion 5 Normal Extension 5 Normal Abduction (C5) 5 Normal External Rotation 5 Normal Internal Rotation 5 Normal Left Flexion 4+ Good+ Extension 5 Normal Abduction (C5) 4 Good External Rotation 4 Good Internal Rotation 4+ Good+ Hip Strength Hip Manual Muscle Testing Right Flexion (L2) 4+ Good+ Extension (S1) 5 Normal Abduction 5 Normal Left Flexion (L2) 4 Good Extension (S1) 4 Good Abduction 4 Good Knee Strength Knee Manual Muscle Testing Right Flexion (S2) 5 Normal Extension (L3) 5 Normal Left Flexion (S2) 4+ Good+ Extension (L3) 4+ Good+ PT-OP-Q Treatments Start: 04/14/22 09:51 Freq: Status: Active Protocol: Document 09/05/22 07:34 AMB (Rec: 09/05/22 08:16 AMB [id number]) Gym Equipment Cable Column (Body Solid) Rows Resistance 40 then 20 Reps/Time 2x12 Lat Pull Down Details 40# Reps/Time 2x10 Therapeutic Exercises Sitting Exercises biceps Sitting Exercise Name 4# Reps/Minutes 2x10 Standing Exercises plinth plank Standing Exercise Name raised high Reps/Minutes 30x2 Comments pressure, but ok shoulder flexion Resistance 10# Reps/Minutes 2x10 shoulder ER Resistance green Equipment Used slim towel roll Reps/Minutes 10 shoulder IR Resistance orange Reps/Minutes 2x10 pec stretch Standing Exercise Name varying angles Side left Reps/Minutes 1 minx 3 Comments doorway, monica>Left only PT-OP-R Modalities Start: 04/14/22 09:51 Freq: Status: Active Protocol: Document 08/01/22 13:00 AMB (Rec: 08/01/22 13:51 AMB [id number]) Hot Pack/Cold Pack Treatment Ice Massage Location L shoulder Patient Position Supine Treatment Duration (minutes) 5 Patient Tolerance Good PT-OP-T Assessment and Plan Start: 04/14/22 09:51 Freq: Status: Active Protocol: Document 09/05/22 07:34 AMB (Rec: 09/05/22 08:16 AMB [id number]) Physical Therapy Assessment Goals Three Impairment Return to sport Short Term Goal (STG) Belinda will lift 20# overhead with 2/10 shoulder pain or less. 08/21/22: Doesn't lift items at work heavy that doesn't feel can do. She did lift/press 60# bar dawson to chest and over behind head and shld was sore and numbness. 1-# DB tiring 2x5 reps STG Duration 6 weeks progressing Two Impairment Shoulder pain Short Term Goal (STG) Talia will show at least 165 degrees of active shoulder flexion without pain. 08/21/22: MET GOAL 180 deg painfree STG Duration 6 weeks GOAL MET Sugar Presser Goal (LTG) Talia will have 0/10 shoulder pain with twisting activities at work as a diesel fleet mechanic. 08/21/22: doesn't do this motions at work at this time. LTG Duration 12 weeks One Impairment Knee pain Short Term Goal (STG) Talia will move from sit to stand without knee pain. STG Duration MET Sugar Presser Goal (LTG) Talia will squat 40# without knee pain. LTG Duration MET Assessment Summary Assessment Upper trap can still engage but otherwise things are going well. Biceps tolerating more with rows and biceps. Physical Therapy Plan Frequency and Duration Frequency of Treatment 1x/Week Duration of treatment (weeks) 8 Plan of Care Start Date 08/29/22 Plan of Care End Date 10/24/22 Therapeutic Interventions Therapeutic Interventions Home Exercise Program,Manual Therapy,Neuromuscular Re- education,Self-Care/Home Management,Therapeutic Activities,Therapeutic Exercises Modalities Cold Pack/Ice Massage,Electric Stimulation,Hot Packs, Iontophoresis,Ultrasound Other Therapeutic Interventions iontophoresis with dexamethasone Next Visit Focus/Plan Next Note Type Treatment Note Next Visit Plan Progress overhead, biceps strengthening.
--- NOTE | 2022-09-10 08:18 | PT.OTN ---
Current Diagnoses Pain in left shoulder (09/10/22) Pain in left knee (09/10/22) Physical Therapy Treatment Note PT-OP-A Visit Information Start: 04/14/22 09:51 Freq: Status: Active Protocol: Document 09/10/22 07:39 AMB (Rec: 09/10/22 07:44 AMB [id number]) Out-Patient Physical Therapy Visit Information Visit Information Visit Type Treatment Note Visit Start Time 07:30 Visit Stop Time 08:15 Total Visit Minutes 45 Visit Number 24 PT-OP-B Current Condition Start: 04/14/22 09:51 Freq: Status: Active Protocol: Document 04/18/22 07:31 AMB (Rec: 04/18/22 07:51 AMB [id number]) Current Condition History of Current Condition Onset Date Jan 2020 for the shoulder; mid 2021 knee Current Complaints L shoulder and L knee History of Current Condition Talia reports that she was doing biceps curls and suddenly had a difficult time in January 2020. L shoulder continues to tire out extremely fast. Shoulder gets irritated if trying to get shoulder back. Getting dressed doesn't hurt it but can't really lift weights like she wants. Overhead lifts hurt. As far as the knee, doesn't really trust knee when she's been sitting for a while, especially crossing the leg the knee locks up. 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 Does have previous history of back pain. Prior Treatments and Tests MRI negative for shoulder, Xray of knee negative Treatment Goals Patient/Caregiver Goals Return to gym workouts Prior Functional Status Baseline Function- ADL's Independent Baseline Function- Mobility Independent Personal Factors Other Personal Factors That May Effect Lumbar pain history, active Therapy/Recovery duty PT-OP-C Subjective Start: 04/14/22 09:51 Freq: Status: Active Protocol: Document 09/10/22 07:39 AMB (Rec: 09/10/22 07:44 AMB [id number]) OP-PT Subjective Patient Comments Patient Comments Pt did a line dance competition over the weekend and is tired, but did well with her knee. Shoulder is doing well. PT-OP-J Posture/Palpation/Skin Start: 04/14/22 09:51 Freq: Status: Active Protocol: Document 04/18/22 07:30 AMB (Rec: 04/18/22 13:01 AMB [id number]) Posture Evaluation Comments Posture Comments medial bordern of scapula wings L>R Palpation Assessment Location One Palpation Details Shoulder quite tender to palpation at the long head of the biceps origin. Otherwise no tenderness noted PT-OP-K Range of Motion Start: 04/14/22 09:51 Freq: Status: Active Protocol: Document 04/18/22 07:30 AMB (Rec: 04/18/22 13:01 AMB [id number]) Shoulder Goniometric Range of Motion Shoulder Left Active Testing Position Sitting Flexion 156 Abduction 180 Internal Rotation Behind Back (text) L3 Knee Goniometric Range of Motion Knee ROM Limitations Comments WFL bilaterally, PT-OP-L Special Tests Start: 04/14/22 09:51 Freq: Status: Active Protocol: Document 04/18/22 07:30 AMB (Rec: 04/18/22 13:01 AMB [id number]) Special Tests Knee Special Tests Ever Test Test Results - PT-OP-M Strength Start: 04/14/22 09:51 Freq: Status: Active Protocol: Document 04/18/22 07:30 AMB (Rec: 04/18/22 13:01 AMB [id number]) Shoulder Strength Shoulder Manual Muscle Testing Right Flexion 5 Normal Extension 5 Normal Abduction (C5) 5 Normal External Rotation 5 Normal Internal Rotation 5 Normal Left Flexion 4+ Good+ Extension 5 Normal Abduction (C5) 4 Good External Rotation 4 Good Internal Rotation 4+ Good+ Hip Strength Hip Manual Muscle Testing Right Flexion (L2) 4+ Good+ Extension (S1) 5 Normal Abduction 5 Normal Left Flexion (L2) 4 Good Extension (S1) 4 Good Abduction 4 Good Knee Strength Knee Manual Muscle Testing Right Flexion (S2) 5 Normal Extension (L3) 5 Normal Left Flexion (S2) 4+ Good+ Extension (L3) 4+ Good+ PT-OP-Q Treatments Start: 04/14/22 09:51 Freq: Status: Active Protocol: Document 09/10/22 07:44 AMB (Rec: 09/10/22 08:18 AMB [id number]) Gym Equipment Cable Column (Body Solid) Rows Resistance 20 Reps/Time 2x12 Lat Pull Down Details 40# Reps/Time 2x10 Therapeutic Exercises Prone Exercises plank Prone Exercise Name elbow/feet Comments 30 second x2 Sitting Exercises biceps Sitting Exercise Name 4#, then 5# Reps/Minutes 2x10 Comments more sore with 5# Standing Exercises OH press Standing Exercise Name Place on shelf motion OH (PVC rack) Side left Resistance 10# DB Reps/Minutes 2x5 Comments self scap stab reported to complete, tiring painfree shoulder ER Resistance green Equipment Used slim towel roll Reps/Minutes 10 pec stretch Standing Exercise Name varying angles Side left Reps/Minutes 1 minx 3 Comments doorway, monica>Left only PT-OP-R Modalities Start: 04/14/22 09:51 Freq: Status: Active Protocol: Document 08/01/22 13:00 AMB (Rec: 08/01/22 13:51 AMB [id number]) Hot Pack/Cold Pack Treatment Ice Massage Location L shoulder Patient Position Supine Treatment Duration (minutes) 5 Patient Tolerance Good PT-OP-T Assessment and Plan Start: 04/14/22 09:51 Freq: Status: Active Protocol: Document 09/10/22 07:44 AMB (Rec: 09/10/22 08:18 AMB [id number]) Physical Therapy Assessment Goals Three Impairment Return to sport Short Term Goal (STG) Belinda will lift 20# overhead with 2/10 shoulder pain or less. 08/21/22: Doesn't lift items at work heavy that doesn't feel can do. She did lift/press 60# bar dawson to chest and over behind head and shld was sore and numbness. 1-# DB tiring 2x5 reps STG Duration 6 weeks progressing Two Impairment Shoulder pain Short Term Goal (STG) Talia will show at least 165 degrees of active shoulder flexion without pain. 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 08/21/22: doesn't do this motions at work at this time. LTG Duration 12 weeks One Impairment Knee pain Short Term Goal (STG) Talia will move from sit to stand without knee pain. STG Duration MET Monitoring Analyst Goal (LTG) Talia will squat 40# without knee pain. LTG Duration MET Assessment Summary Assessment Pt did well with more resistance with ER and increasing planks. Given green band for home for ER and [id number] planks for HEP. Physical Therapy Plan Frequency and Duration Frequency of Treatment 1x/Week Duration of treatment (weeks) 8 Plan of Care Start Date 08/29/22 Plan of Care End Date 10/24/22 Therapeutic Interventions Therapeutic Interventions Home Exercise Program,Manual Therapy,Neuromuscular Re- education,Self-Care/Home Management,Therapeutic Activities,Therapeutic Exercises Modalities Cold Pack/Ice Massage,Electric Stimulation,Hot Packs, Iontophoresis,Ultrasound Other Therapeutic Interventions iontophoresis with dexamethasone Next Visit Focus/Plan Next Note Type Treatment Note Next Visit Plan Progress overhead, biceps strengthening.
--- NOTE | 2022-09-18 08:15 | PT.OTN ---
Current Diagnoses Pain in left shoulder (09/18/22) Pain in left knee (09/18/22) Physical Therapy Treatment Note PT-OP-A Visit Information Start: 04/14/22 09:51 Freq: Status: Active Protocol: Document 09/18/22 07:32 SP (Rec: 09/18/22 08:18 SP [id number]) Out-Patient Physical Therapy Visit Information Visit Information Visit Type Treatment Note Visit Start Time 07:32 Visit Stop Time 08:15 Total Visit Minutes 43 Visit Number 25 Number of FLIGHT TEST SUPERVISOR Visits 1 PT-OP-B Current Condition Start: 04/14/22 09:51 Freq: Status: Active Protocol: Document 04/18/22 07:31 AMB (Rec: 04/18/22 07:51 AMB [id number]) Current Condition History of Current Condition Onset Date Jan 2020 for the shoulder; mid 2021 knee Current Complaints L shoulder and L knee History of Current Condition Talia reports that she was doing biceps curls and suddenly had a difficult time in January 2020. L shoulder continues to tire out extremely fast. Shoulder gets irritated if trying to get shoulder back. Getting dressed doesn't hurt it but can't really lift weights like she wants. Overhead lifts hurt. As far as the knee, doesn't really trust knee when she's been sitting for a while, especially crossing the leg the knee locks up. 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 Does have previous history of back pain. Prior Treatments and Tests MRI negative for shoulder, Xray of knee negative Treatment Goals Patient/Caregiver Goals Return to gym workouts Prior Functional Status Baseline Function- ADL's Independent Baseline Function- Mobility Independent Personal Factors Other Personal Factors That May Effect Lumbar pain history, active Therapy/Recovery duty PT-OP-C Subjective Start: 04/14/22 09:51 Freq: Status: Active Protocol: Document 09/18/22 07:32 SP (Rec: 09/18/22 08:18 SP [id number]) OP-PT Subjective Patient Comments Patient Comments Pt report no pain or real tightness. Is compliant with band HEP. States will return to gym when done with therapy to go straight back to lifting . PT-OP-J Posture/Palpation/Skin Start: 01/07/23 09:51 Freq: Status: Active Protocol: Document 04/18/22 07:30 AMB (Rec: 04/18/22 13:01 AMB [id number]) Posture Evaluation Comments Posture Comments medial bordern of scapula wings L>R Palpation Assessment Location One Palpation Details Shoulder quite tender to palpation at the long head of the biceps origin. Otherwise no tenderness noted PT-OP-K Range of Motion Start: 04/14/22 09:51 Freq: Status: Active Protocol: Document 04/18/22 07:30 AMB (Rec: 04/18/22 13:01 AMB [id number]) Shoulder Goniometric Range of Motion Shoulder Left Active Testing Position Sitting Flexion 156 Abduction 180 Internal Rotation Behind Back (text) L3 Knee Goniometric Range of Motion Knee ROM Limitations Comments WFL bilaterally, PT-OP-L Special Tests Start: 04/14/22 09:51 Freq: Status: Active Protocol: Document 04/18/22 07:30 AMB (Rec: 04/18/22 13:01 AMB [id number]) Special Tests Knee Special Tests [place]iman Test Test Results - PT-OP-M Strength Start: 04/14/22 09:51 Freq: Status: Active Protocol: Document 04/18/22 07:30 AMB (Rec: 04/18/22 13:01 AMB [id number]) Shoulder Strength Shoulder Manual Muscle Testing Right Flexion 5 Normal Extension 5 Normal Abduction (C5) 5 Normal External Rotation 5 Normal Internal Rotation 5 Normal Left Flexion 4+ Good+ Extension 5 Normal Abduction (C5) 4 Good External Rotation 4 Good Internal Rotation 4+ Good+ Hip Strength Hip Manual Muscle Testing Right Flexion (L2) 4+ Good+ Extension (S1) 5 Normal Abduction 5 Normal Left Flexion (L2) 4 Good Extension (S1) 4 Good Abduction 4 Good Knee Strength Knee Manual Muscle Testing Right Flexion (S2) 5 Normal Extension (L3) 5 Normal Left Flexion (S2) 4+ Good+ Extension (L3) 4+ Good+ PT-OP-Q Treatments Start: 04/14/22 09:51 Freq: Status: Active Protocol: Document 09/18/22 07:32 SP (Rec: 09/18/22 08:18 SP [id number]) Gym Equipment Cable Column (Body Solid) Rows Resistance 20 Reps/Time 2x10, x12 Lat Pull Down Details reports tiring and last 2 reps 3rd set little rough UT/mm compensate Resistance 40# Reps/Time x10, 2x15 Therapeutic Exercises Supine Exercises D2 flexion Supine Exercise Name added to HEP Side left Resistance Tb #3- anchored opp ft Equipment Used laying EOTable arm off Reps/Minutes x15, x10 Comments good muscle challenge Prone Exercises plank Prone Exercise Name elbow/feet Reps/Minutes 1m30s Comments occasional cues PPT, glut fac, TA with self corrections Sitting Exercises self-STM Sitting Exercise Name Trigger point release to L UT Side left Equipment Used theracane Reps/Minutes x30-60s Comments between ther ex as needed Standing Exercises OH press Standing Exercise Name Place on shelf motion OH (PVC rack) Side left Resistance 10# DB single shelf, Robles #7 DB assimulate bar dawson Equipment Used mirror for form Reps/Minutes x10 Comments self scap stab reported to complete tiring painfree shoulder ER Resistance green Equipment Used slim towel roll Reps/Minutes 10 no towel 1st set Comments good form. pec stretch Standing Exercise Name varying angles Side left Resistance wall and use TB #3 in 1/2 kneel Reps/Minutes 1 minx 3 Comments good feedback stretch Other Exercises row w/ tricep ext Other Exercise Name added to HEP Side left Resistance TB #3 1st set, #2 2nd set self STMs Other Exercise Name ball wall L pec Side left Reps/Minutes 1 min Comments post tricep ext/row, good feedback response scap & neck mob Manual Therapy Treatment Soft Tissue Mobilization UT/ LS Body Location L and subscap Mobilization Type Strumming,Sustained Pressure, Other Comments manual, ed use end of broom angled into floor/wall and guide over subscap release. PT-OP-R Modalities Start: 04/14/22 09:51 Freq: Status: Active Protocol: Document 08/01/22 13:00 AMB (Rec: 08/01/22 13:51 AMB [id number]) Hot Pack/Cold Pack Treatment Ice Massage Location L shoulder Patient Position Supine Treatment Duration (minutes) 5 Patient Tolerance Good PT-OP-T Assessment and Plan Start: 04/14/22 09:51 Freq: Status: Active Protocol: Document 09/18/22 07:32 SP (Rec: 09/18/22 08:18 SP [id number]) Physical Therapy Assessment Goals Three Impairment Return to sport Short Term Goal (STG) Belinda will lift 20# overhead with 2/10 shoulder pain or less. 08/21/22: Doesn't lift items at work heavy that doesn't feel can do. She did lift/press 60# bar dawson to chest and over behind head and shld was sore and numbness. 1-# DB tiring 2x5 reps 09/18/22: stated trialed 60# OH picking up a bar and putting on shlds and her arm went numb about 1 mo ago. Hasn't tried since. STG Duration 6 weeks progressing Two Impairment Shoulder pain Short Term Goal (STG) Talia will show at least 165 degrees of active shoulder flexion without pain. 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 08/21/22: doesn't do this motions at work at this time. 09/18/22: pt reports isn't going to be a production line mechanic for about 6 months so not doing these motions to trial/work toward. LTG Duration 12 weeks update 09/18/22 One Impairment Knee pain Short Term Goal (STG) Talia will move from sit to stand without knee pain. STG Duration MET Estimate Clerk Goal (LTG) Talia will squat 40# without knee pain. LTG Duration MET Assessment Summary Assessment Pt improves with scapular self corrections and use theracane and ball on wall for UT/LS/ pec lessening tension between ther ex. She has good tolerance and scap setting resisted rows/elbow extension and supine D2 flexion this tx to progress toward gym exercises wishes to return to, reports good muscle tiring. Pt progressed elbow plank up to 1 min 30 sec today. Physical Therapy Plan Frequency and Duration Frequency of Treatment 1x/Week Duration of treatment (weeks) 8 Plan of Care Start Date 08/29/22 Plan of Care End Date 10/24/22 Therapeutic Interventions Therapeutic Interventions Home Exercise Program,Manual Therapy,Neuromuscular Re- education,Self-Care/Home Management,Therapeutic Activities,Therapeutic Exercises Modalities Cold Pack/Ice Massage,Electric Stimulation,Hot Packs, Iontophoresis,Ultrasound Other Therapeutic Interventions iontophoresis with dexamethasone Next Visit Focus/Plan Next Note Type Treatment Note Next Visit Plan Next tx add standing OH press, anchored under foot, maybe tied to dowel, assimulate barbell while incorporating squat wishes to return to. POC: Progress overhead, biceps strengthening.
--- NOTE | 2022-09-24 08:22 | PT.OTN ---
Current Diagnoses Pain in left shoulder (09/24/22) Pain in left knee (09/24/22) Physical Therapy Treatment Note PT-OP-A Visit Information Start: 04/14/22 09:51 Freq: Status: Active Protocol: Document 09/24/22 07:34 AMB (Rec: 09/24/22 08:15 AMB [id number]) Out-Patient Physical Therapy Visit Information Visit Information Visit Type Treatment Note Visit Start Time 07:32 Visit Stop Time 08:15 Total Visit Minutes 43 Visit Number 2 PT-OP-B Current Condition Start: 04/14/22 09:51 Freq: Status: Active Protocol: Document 04/18/22 07:31 AMB (Rec: 04/18/22 07:51 AMB [id number]) Current Condition History of Current Condition Onset Date Jan 2020 for the shoulder; mid 2021 knee Current Complaints L shoulder and L knee History of Current Condition Talia reports that she was doing biceps curls and suddenly had a difficult time in January 2020. L shoulder continues to tire out extremely fast. Shoulder gets irritated if trying to get shoulder back. Getting dressed doesn't hurt it but can't really lift weights like she wants. Overhead lifts hurt. As far as the knee, doesn't really trust knee when she's been sitting for a while, especially crossing the leg the knee locks up. 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 Does have previous history of back pain. Prior Treatments and Tests MRI negative for shoulder, Xray of knee negative Treatment Goals Patient/Caregiver Goals Return to gym workouts Prior Functional Status Baseline Function- ADL's Independent Baseline Function- Mobility Independent Personal Factors Other Personal Factors That May Effect Lumbar pain history, active Therapy/Recovery duty PT-OP-C Subjective Start: 04/14/22 09:51 Freq: Status: Active Protocol: Document 09/24/22 07:30 AMB (Rec: 09/24/22 08:17 AMB [id number]) OP-PT Subjective Patient Comments Patient Comments Talia is sore from lower body strengthening, hasn't done shoulders yet, but is hoping to soon. PT-OP-J Posture/Palpation/Skin Start: 04/14/22 09:51 Freq: Status: Active Protocol: Document 04/18/22 07:30 AMB (Rec: 04/18/22 13:01 AMB [id number]) Posture Evaluation Comments Posture Comments medial bordern of scapula wings L>R Palpation Assessment Location One Palpation Details Shoulder quite tender to palpation at the long head of the biceps origin. Otherwise no tenderness noted PT-OP-K Range of Motion Start: 04/14/22 09:51 Freq: Status: Active Protocol: Document 04/18/22 07:30 AMB (Rec: 04/18/22 13:01 AMB [id number]) Shoulder Goniometric Range of Motion Shoulder Left Active Testing Position Sitting Flexion 156 Abduction 180 Internal Rotation Behind Back (text) L3 Knee Goniometric Range of Motion Knee ROM Limitations Comments WFL bilaterally, PT-OP-L Special Tests Start: 04/14/22 09:51 Freq: Status: Active Protocol: Document 04/18/22 07:30 AMB (Rec: 04/18/22 13:01 AMB [id number]) Special Tests Knee Special Tests Ever Test Test Results - PT-OP-M Strength Start: 04/14/22 09:51 Freq: Status: Active Protocol: Document 04/18/22 07:30 AMB (Rec: 04/18/22 13:01 AMB [id number]) Shoulder Strength Shoulder Manual Muscle Testing Right Flexion 5 Normal Extension 5 Normal Abduction (C5) 5 Normal External Rotation 5 Normal Internal Rotation 5 Normal Left Flexion 4+ Good+ Extension 5 Normal Abduction (C5) 4 Good External Rotation 4 Good Internal Rotation 4+ Good+ Hip Strength Hip Manual Muscle Testing Right Flexion (L2) 4+ Good+ Extension (S1) 5 Normal Abduction 5 Normal Left Flexion (L2) 4 Good Extension (S1) 4 Good Abduction 4 Good Knee Strength Knee Manual Muscle Testing Right Flexion (S2) 5 Normal Extension (L3) 5 Normal Left Flexion (S2) 4+ Good+ Extension (L3) 4+ Good+ PT-OP-Q Treatments Start: 04/14/22 09:51 Freq: Status: Active Protocol: Document 09/24/22 07:34 AMB (Rec: 09/24/22 08:15 AMB [id number]) Gym Equipment Cable Column (Body Solid) Rows Resistance 20 Reps/Time 2x10, x12 Lat Pull Down Resistance 50# Reps/Time 2x10# Therapeutic Exercises Sitting Exercises biceps Sitting Exercise Name 4#, Reps/Minutes 2x10 Comments with pronation Standing Exercises OH press Standing Exercise Name Place on shelf motion OH (PVC rack) Side left Resistance 10# DB single shelf, Robles #7 DB assimulate bar dawson Equipment Used mirror for form Reps/Minutes x10 Comments self scap stab reported to complete tiring painfree pec stretch Standing Exercise Name varying angles Side left Resistance wall and use TB #3 in 1/2 kneel Reps/Minutes 1 minx 3 Comments good feedback stretch Manual Therapy Treatment Soft Tissue Mobilization biceps Body Location L proximal long head Mobilization Type Myofascial Release, Oscillations,Sustained Pressure Intensity/Depth Moderate Body Position Hooklying Comments manual brief then self ball corner of wall PT-OP-R Modalities Start: 04/14/22 09:51 Freq: Status: Active Protocol: Document 08/01/22 13:00 AMB (Rec: 08/01/22 13:51 AMB [id number]) Hot Pack/Cold Pack Treatment Ice Massage Location L shoulder Patient Position Supine Treatment Duration (minutes) 5 Patient Tolerance Good PT-OP-T Assessment and Plan Start: 04/14/22 09:51 Freq: Status: Active Protocol: Document 09/24/22 07:34 AMB (Rec: 09/24/22 08:15 AMB [id number]) Physical Therapy Assessment Goals Three Impairment Return to sport Short Term Goal (STG) Belinda will lift 20# overhead with 2/10 shoulder pain or less. 08/21/22: Doesn't lift items at work heavy that doesn't feel can do. She did lift/press 60# bar dawson to chest and over behind head and shld was sore and numbness. 1-# DB tiring 2x5 reps 09/18/22: stated trialed 60# OH picking up a bar and putting on shlds and her arm went numb about 1 mo ago. Hasn't tried since. STG Duration 6 weeks progressing Two Impairment Shoulder pain Short Term Goal (STG) Talia will show at least 165 degrees of active shoulder flexion without pain. 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 08/21/22: doesn't do this motions at work at this time. 09/18/22: pt reports isn't going to be a mechanical service specialist for about 6 months so not doing these motions to trial/work toward. LTG Duration 12 weeks update 09/18/22 Assessment Summary Assessment Did not progress squat with theraband exercise today as pt was very sore with her lower body. Did have soreness in muscle belly of biceps more medially. No pain over tendons. Physical Therapy Plan Frequency and Duration Frequency of Treatment 1x/Week Duration of treatment (weeks) 8 Plan of Care Start Date 08/29/22 Plan of Care End Date 10/24/22 Therapeutic Interventions Therapeutic Interventions Home Exercise Program,Manual Therapy,Neuromuscular Re- education,Self-Care/Home Management,Therapeutic Activities,Therapeutic Exercises Modalities Cold Pack/Ice Massage,Electric Stimulation,Hot Packs, Iontophoresis,Ultrasound Other Therapeutic Interventions iontophoresis with dexamethasone Next Visit Focus/Plan Next Note Type Treatment Note Next Visit Plan Next tx add standing OH press, anchored under foot, maybe tied to dowel, assimulate barbell while incorporating squat wishes to return to. POC: Progress overhead, biceps strengthening.
--- NOTE | 2022-10-01 08:23 | PT.OTN ---
Current Diagnoses Pain in left shoulder (10/01/22) Pain in left knee (10/01/22) Physical Therapy Treatment Note PT-OP-A Visit Information Start: 04/14/22 09:51 Freq: Status: Active Protocol: Document 10/01/22 07:34 SP (Rec: 10/01/22 09:01 SP [id number]) Out-Patient Physical Therapy Visit Information Visit Information Visit Type Treatment Note Visit Note POLE CLIMBER 4 min late for appt. Visit Start Time 07:34 Visit Stop Time 08:23 Total Visit Minutes 49 Visit Number 3 Number of POLE CLIMBER Visits 1 PT-OP-B Current Condition Start: 04/14/22 09:51 Freq: Status: Active Protocol: Document 04/18/22 07:31 AMB (Rec: 04/18/22 07:51 AMB [id number]) Current Condition History of Current Condition Onset Date Jan 2020 for the shoulder; mid 2021 knee Current Complaints L shoulder and L knee History of Current Condition Talia reports that she was doing biceps curls and suddenly had a difficult time in January 2020. L shoulder continues to tire out extremely fast. Shoulder gets irritated if trying to get shoulder back. Getting dressed doesn't hurt it but can't really lift weights like she wants. Overhead lifts hurt. As far as the knee, doesn't really trust knee when she's been sitting for a while, especially crossing the leg the knee locks up. 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 Does have previous history of back pain. Prior Treatments and Tests MRI negative for shoulder, Xray of knee negative Treatment Goals Patient/Caregiver Goals Return to gym workouts Prior Functional Status Baseline Function- ADL's Independent Baseline Function- Mobility Independent Personal Factors Other Personal Factors That May Effect Lumbar pain history, active Therapy/Recovery duty PT-OP-C Subjective Start: 04/14/22 09:51 Freq: Status: Active Protocol: Document 10/01/22 07:34 SP (Rec: 10/01/22 09:01 SP [id number]) OP-PT Subjective Patient Comments Patient Comments Pt reports trialed shld and back work out with ability to increased her weight to 55# for rows and 70# 2nd set after 25-35 warm up at gym and 7.5 # DB with close chaing bicep flat supine bench (inclined ok ) but started getting numbness feeling over proximal bicep and tingling into full hand and heavy feeling into full arm so she stopped and shake out arm for feeling in LUE for recovery. She stated she tried self massage, stretching and nerve glides to open up the area but didn't make a significant change in anterior shld and distal pec attachment discomfort irritation. PT-OP-J Posture/Palpation/Skin Start: 04/14/22 09:51 Freq: Status: Active Protocol: Document 04/18/22 07:30 AMB (Rec: 04/18/22 13:01 AMB [id number]) Posture Evaluation Comments Posture Comments medial bordern of scapula wings L>R Palpation Assessment Location One Palpation Details Shoulder quite tender to palpation at the long head of the biceps origin. Otherwise no tenderness noted PT-OP-K Range of Motion Start: 04/14/22 09:51 Freq: Status: Active Protocol: Document 04/18/22 07:30 AMB (Rec: 04/18/22 13:01 AMB [id number]) Shoulder Goniometric Range of Motion Shoulder Left Active Testing Position Sitting Flexion 156 Abduction 180 Internal Rotation Behind Back (text) L3 Knee Goniometric Range of Motion Knee ROM Limitations Comments WFL bilaterally, PT-OP-L Special Tests Start: 04/14/22 09:51 Freq: Status: Active Protocol: Document 04/18/22 07:30 AMB (Rec: 04/18/22 13:01 AMB [id number]) Special Tests Knee Special Tests Ever Test Test Results - PT-OP-M Strength Start: 04/14/22 09:51 Freq: Status: Active Protocol: Document 04/18/22 07:30 AMB (Rec: 04/18/22 13:01 AMB [id number]) Shoulder Strength Shoulder Manual Muscle Testing Right Flexion 5 Normal Extension 5 Normal Abduction (C5) 5 Normal External Rotation 5 Normal Internal Rotation 5 Normal Left Flexion 4+ Good+ Extension 5 Normal Abduction (C5) 4 Good External Rotation 4 Good Internal Rotation 4+ Good+ Hip Strength Hip Manual Muscle Testing Right Flexion (L2) 4+ Good+ Extension (S1) 5 Normal Abduction 5 Normal Left Flexion (L2) 4 Good Extension (S1) 4 Good Abduction 4 Good Knee Strength Knee Manual Muscle Testing Right Flexion (S2) 5 Normal Extension (L3) 5 Normal Left Flexion (S2) 4+ Good+ Extension (L3) 4+ Good+ PT-OP-Q Treatments Start: 04/14/22 09:51 Freq: Status: Active Protocol: Document 10/01/22 07:34 SP (Rec: 10/01/22 09:01 SP [id number]) Gym Equipment Cable Column (Body Solid) Rows Resistance 20# Reps/Time x10 then sore over anterior L shld Lat Pull Down Resistance 40# warm up, 50# Reps/Time x10 reps each then intolerated soreness over Ant L shld- stopped Therapeutic Exercises Supine Exercises foam roller Supine Exercise Name pec stretch various angles, FF , Ts, Ws, abd/ER Reps/Minutes 8 min Comments discomfort L ant GH Jt pinch end stretch Ws, mid FF, almost end range Ts Manual Therapy Treatment Soft Tissue Mobilization biceps Body Location L proximal long head, coracobrachalis, distal pec major Mobilization Type Myofascial Release, Oscillations,Sustained Pressure Intensity/Depth Moderate Body Position Hooklying Comments manual, MWM GH mid range punch , IR/ER, ABD. With ed for pec minor tendon Body Location L Mobilization Type Cross-Friction Intensity/Depth Moderate Comments manual brief then self ball corner of wall Joint Mobilizations L scapulothoracic Comments manual and MWMW retraction, inferior glide, UR, DR with abd OH 1 Joint GH AP, inferior Grade II Comments WMW with FF, ABD, IR /ER PROM and AROM PT-OP-R Modalities Start: 04/14/22 09:51 Freq: Status: Active Protocol: Document 08/01/22 13:00 AMB (Rec: 08/01/22 13:51 AMB [id number]) Hot Pack/Cold Pack Treatment Ice Massage Location L shoulder Patient Position Supine Treatment Duration (minutes) 5 Patient Tolerance Good PT-OP-T Assessment and Plan Start: 04/14/22 09:51 Freq: Status: Active Protocol: Document 10/01/22 07:34 SP (Rec: 10/01/22 09:01 SP [id number]) Physical Therapy Assessment Goals Three Impairment Return to sport Short Term Goal (STG) Belinda will lift 20# overhead with 2/10 shoulder pain or less. 08/21/22: Doesn't lift items at work heavy that doesn't feel can do. She did lift/press 60# bar dawson to chest and over behind head and shld was sore and numbness. 1-# DB tiring 2x5 reps 09/18/22: stated trialed 60# OH picking up a bar and putting on shlds and her arm went numb about 1 mo ago. Hasn't tried since. STG Duration 6 weeks progressing Two Impairment Shoulder pain Short Term Goal (STG) Talia will show at least 165 degrees of active shoulder flexion without pain. 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 08/21/22: doesn't do this motions at work at this time. 09/18/22: pt reports isn't going to be a ride mechanic for about 6 months so not doing these motions to trial/work toward. LTG Duration 12 weeks update 09/18/22 Assessment Summary Assessment Pt responded numbness and occasional tingling down L arm during 50# pull downs today. She had sensitivity to anterior L shld during manual STMs and MWM adjusted pressure with feedback. CUes and tactile feedback for scap retraction and GH posterior glide with OH motion for decompression post manual but reports muscles really tired and irritated at this point. She declined cold modality at end tx stated will add herself later. She inquried only has 1 more appt with PT but feels she isn't ready to continue to on own without PT guidence progression strength and thus back to full duty. Physical Therapy Plan Frequency and Duration Frequency of Treatment 1x/Week Duration of treatment (weeks) 8 Plan of Care Start Date 08/29/22 Plan of Care End Date 10/24/22 Therapeutic Interventions Therapeutic Interventions Home Exercise Program,Manual Therapy,Neuromuscular Re- education,Self-Care/Home Management,Therapeutic Activities,Therapeutic Exercises Modalities Cold Pack/Ice Massage,Electric Stimulation,Hot Packs, Iontophoresis,Ultrasound Other Therapeutic Interventions iontophoresis with dexamethasone Next Visit Focus/Plan Next Note Type Treatment Note Next Visit Plan REcheck anterior L shld pain/ pain/tingling anterior shld and activities at gym. Need assess continue appts with PT. Future tx add standing OH press, anchored under foot, maybe tied to dowel, assimulate barbell while incorporating squat wishes to return to. POC: Progress overhead, biceps strengthening.
--- NOTE | 2022-10-08 15:58 | PT.OTN ---
Current Diagnoses Pain in left shoulder (10/08/22) Pain in left knee (10/08/22) Physical Therapy Treatment Note PT-OP-A Visit Information Start: 04/14/22 09:51 Freq: Status: Active Protocol: Document 10/08/22 08:22 AMB (Rec: 10/08/22 09:00 AMB [id number]) Out-Patient Physical Therapy Visit Information Visit Information Visit Type Treatment Note Visit Start Time 08:20 Visit Stop Time 09:00 Total Visit Minutes 40 Visit Number 28 PT-OP-B Current Condition Start: 04/14/22 09:51 Freq: Status: Active Protocol: Document 04/18/22 07:31 AMB (Rec: 04/18/22 07:51 AMB [id number]) Current Condition History of Current Condition Onset Date Jan 2020 for the shoulder; mid 2021 knee Current Complaints L shoulder and L knee History of Current Condition Talia reports that she was doing biceps curls and suddenly had a difficult time in January 2020. L shoulder continues to tire out extremely fast. Shoulder gets irritated if trying to get shoulder back. Getting dressed doesn't hurt it but can't really lift weights like she wants. Overhead lifts hurt. As far as the knee, doesn't really trust knee when she's been sitting for a while, especially crossing the leg the knee locks up. 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 Does have previous history of back pain. Prior Treatments and Tests MRI negative for shoulder, Xray of knee negative Treatment Goals Patient/Caregiver Goals Return to gym workouts Prior Functional Status Baseline Function- ADL's Independent Baseline Function- Mobility Independent Personal Factors Other Personal Factors That May Effect Lumbar pain history, active Therapy/Recovery duty PT-OP-C Subjective Start: 04/14/22 09:51 Freq: Status: Active Protocol: Document 10/08/22 08:22 AMB (Rec: 10/08/22 09:00 AMB [id number]) OP-PT Subjective Patient Comments Patient Comments Pt reports numbness in hand ( all 5 fingers) with bench press with dumb bells PT-OP-J Posture/Palpation/Skin Start: 04/14/22 09:51 Freq: Status: Active Protocol: Document 04/18/22 07:30 AMB (Rec: 04/18/22 13:01 AMB [id number]) Posture Evaluation Comments Posture Comments medial bordern of scapula wings L>R Palpation Assessment Location One Palpation Details Shoulder quite tender to palpation at the long head of the biceps origin. Otherwise no tenderness noted PT-OP-K Range of Motion Start: 04/14/22 09:51 Freq: Status: Active Protocol: Document 04/18/22 07:30 AMB (Rec: 04/18/22 13:01 AMB [id number]) Shoulder Goniometric Range of Motion Shoulder Left Active Testing Position Sitting Flexion 156 Abduction 180 Internal Rotation Behind Back (text) L3 Knee Goniometric Range of Motion Knee ROM Limitations Comments WFL bilaterally, PT-OP-L Special Tests Start: 04/14/22 09:51 Freq: Status: Active Protocol: Document 04/18/22 07:30 AMB (Rec: 04/18/22 13:01 AMB [id number]) Special Tests Knee Special Tests Ever Test Test Results - PT-OP-M Strength Start: 04/14/22 09:51 Freq: Status: Active Protocol: Document 04/18/22 07:30 AMB (Rec: 04/18/22 13:01 AMB [id number]) Shoulder Strength Shoulder Manual Muscle Testing Right Flexion 5 Normal Extension 5 Normal Abduction (C5) 5 Normal External Rotation 5 Normal Internal Rotation 5 Normal Left Flexion 4+ Good+ Extension 5 Normal Abduction (C5) 4 Good External Rotation 4 Good Internal Rotation 4+ Good+ Hip Strength Hip Manual Muscle Testing Right Flexion (L2) 4+ Good+ Extension (S1) 5 Normal Abduction 5 Normal Left Flexion (L2) 4 Good Extension (S1) 4 Good Abduction 4 Good Knee Strength Knee Manual Muscle Testing Right Flexion (S2) 5 Normal Extension (L3) 5 Normal Left Flexion (S2) 4+ Good+ Extension (L3) 4+ Good+ PT-OP-Q Treatments Start: 04/14/22 09:51 Freq: Status: Active Protocol: Document 10/08/22 08:22 AMB (Rec: 10/08/22 09:00 AMB [id number]) Therapeutic Exercises Prone Exercises shldr horizontal abd Prone Exercise Name HEP form reviewed Side bilateral Equipment Used EX Ball Reps/Minutes 2x5 3# Comments cued arm not back beyond body and LT fac to decrease winging noted shldr ext Prone Exercise Name HEP reviewed Side bilateral Equipment Used EX Ball Reps/Minutes x10 3#B Comments good tolerance, cued head neutral ext, arms not passed Sitting Exercises biceps Sitting Exercise Name 3#, Reps/Minutes 2x10 Comments with pronation and neutral Standing Exercises OH press Standing Exercise Name Place on shelf motion OH (PVC rack) Side left Resistance 10# DB single shelf, Robles #7 DB assimulate bar dawson Equipment Used mirror for form Reps/Minutes x10 Comments self scap stab reported to complete tiring painfree shoulder abduction Standing Exercise Name D2 flexion, ABD Side left Resistance blue TB Reps/Minutes 2x5 Comments tiring more than notice slight discomfort anterior L shld wall pushups Standing Exercise Name 10 Comments no increase in sx today rows Resistance single 9# bench 2x10 Reps/Minutes 2x10 Comments painfree, tiring pec stretch Standing Exercise Name varying angles Side left Resistance wall and use TB #3 in 1/2 kneel Reps/Minutes 1 minx 3 Comments good feedback stretch PT-OP-R Modalities Start: 04/14/22 09:51 Freq: Status: Active Protocol: Document 08/01/22 13:00 AMB (Rec: 08/01/22 13:51 [facility] [id number]) Hot Pack/Cold Pack Treatment Ice Massage Location L shoulder Patient Position Supine Treatment Duration (minutes) 5 Patient Tolerance Good PT-OP-T Assessment and Plan Start: 04/14/22 09:51 Freq: Status: Active Protocol: Document 10/08/22 08:22 AMB (Rec: 10/08/22 09:00 [facility] [id number]) Physical Therapy Assessment Goals Three Impairment Return to sport Short Term Goal (STG) Belinda will lift 20# overhead with 2/10 shoulder pain or less. 08/21/22: Doesn't lift items at work heavy that doesn't feel can do. She did lift/press 60# bar dawson to chest and over behind head and shld was sore and numbness. 1-# DB tiring 2x5 reps 09/18/22: stated trialed 60# OH picking up a bar and putting on shlds and her arm went numb about 1 mo ago. Hasn't tried since. STG Duration No pain, but numbness and weakness are reproduced Two Impairment Shoulder pain Short Term Goal (STG) Talia will show at least 165 degrees of active shoulder flexion without pain. 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 08/21/22: doesn't do this motions at work at this time. 09/18/22: pt reports isn't going to be a superintendent mechanical for about 6 months so not doing these motions to trial/work toward. LTG Duration When tried in PT did not reproduce sx Assessment Summary Assessment Talia overall has improved but continues to have symptoms in her anterior shoulder, especially numbness with exercise. We had originally kept her from doing any gym exercises, and she was only doing gentle PT exercises. She did not have numbness with this. Her pain overall has decreased significantly in PT, but as she has increased the weights that she is lifting in the gym, her numbness and weakness has returned. Considering the length of time that she has been in PT and the length of time that she has had this issue, she was encouraged to gently continue strength training and return to MD to further discuss nerve impingment sx. Physical Therapy Plan Frequency and Duration Frequency of Treatment 1x/Week Duration of treatment (weeks) 8 Plan of Care Start Date 08/29/22 Plan of Care End Date 10/24/22 Therapeutic Interventions Therapeutic Interventions Home Exercise Program,Manual Therapy,Neuromuscular Re- education,Self-Care/Home Management,Therapeutic Activities,Therapeutic Exercises Modalities Cold Pack/Ice Massage,Electric Stimulation,Hot Packs, Iontophoresis,Ultrasound Other Therapeutic Interventions iontophoresis with dexamethasone
== END 2022-10-16 10:06 | disposition home or self-care (01) ==
LOC: PHYS 08:15
PROVIDERS: Family Provider Student in an Organized Health Care Education/Training Program; PCP Student in an Organized Health Care Education/Training Program; Referring Provider Student in an Organized Health Care Education/Training Program; Visit Provider Student in an Organized Health Care Education/Training Program
DX: M25.512 Pain in left shoulder (principal); M25.562 Pain in left knee
CPT/HCPCS: 97110; 97140; 97161

== ENCOUNTER → 2023-05-19 10:43 | Outpatient (CLI) | payer OTHER, SELFPAY ==
--- NOTE | 2023-05-19 10:44 | DI.MRI.S_ITS ---
PROCEDURE: MR KNEE LT WO CON INDICATIONS: Pain in left knee TECHNIQUE: Noncontrast sagittal PD fast spin echo and T2 fast spin echo with fat saturation, sagittal 3-D FLASH with fat saturation; coronal T1 spin echo and PD fast spin echo with fat saturation, and axial PD fast spin echo with fat saturation through the knee. COMPARISON: None. FINDINGS: Image quality: Excellent. Menisci: The medial and lateral menisci demonstrate normal morphology and internal signal. The meniscal root ligaments appear intact. Cruciate ligaments: Thickened ACL at its femoral insertion is seen. The posterior cruciate ligament is intact. Medial structures: The medial collateral ligament appears mildly thickened at its femoral insertion. Visualized portions of the pes anserinus tendons appear normal. No abnormal bursal fluid. Lateral structures: The lateral collateral ligament, long and short heads of the biceps femoris tendon appear intact. The popliteus tendon appears normal. Iliotibial band appears normal. Anterior structures: The quadriceps tendon is intact. Mild proximal patellar tendinosis at its inferior patellar insertion is seen. Patellar alignment is normal. No femoral trochlear dysplasia or ventral trochlear prominence. No edema in the infrapatellar fat pad. Bones and cartilage: No bone marrow contusions or fractures. 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 The cartilage of the medial and lateral femorotibial compartments appears normal in thickness. Joint space: There is physiologic knee joint fluid. No Padilla's cyst. Normal appearing synovial plicae are incidentally noted. IMPRESSION: 1. Suggestion of low-grade proximal ACL sprain at its femoral insertion. No ACL rupture. The PCL is intact. 2. No evidence of focal meniscal tear. 3. Mild proximal MCL sprain. 4. Mild proximal patellar tendinosis at its inferior patellar insertion. 5. 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 No marrow edema. No fracture or dislocation. No significant joint effusion or intra-articular loose bodies. Dictated by: Ricardo Barry M.D. on 05/20/2023 at 13:01 Approved by: Ricardo Barry M.D. on 05/20/2023 at 13:04
== END ==
PROVIDERS: Family Provider Student in an Organized Health Care Education/Training Program; PCP Student in an Organized Health Care Education/Training Program; Referring Provider Orthopaedic Surgery; Visit Provider Orthopaedic Surgery
DX: S83.412A Sprain of medial collateral ligament of left knee, initial encounter (principal); M94.262 Chondromalacia, left knee; M25.562 Pain in left knee
CPT/HCPCS: 73721